=== PATIENT | male | born 1955 | race Caucasian/White ===

== ENCOUNTER 2016-08-26 16:05 | Observation (INO) | payer OTHER, MEDICARE ==
--- NOTE | 2016-08-26 16:24 | ER Document Report ---
ED Medical Screen (RME) - General Stated Complaint: CHEST PAIN Notes: onset: today, this AM around 9am. gradual onset and has gotten worse throughout the day. substernal chest pain described as "muscle pain, ache", radiating into left arm and shoulder. denies SOB PMH: preangina, previous stress test > 1 year ago I have greeted and performed a rapid initial assessment of this patient. A comprehensive ED assessment and evaluation of the patient, analysis of test results and completion of the medical decision making process will be conducted by additional ED providers. - Related Data Allergies/Adverse Reactions: Penicillins Allergy (Intermediate, Verified 09/10/13 05:42) Rash Past Medical History - Past Medical History Cardiac Medical History: Reports: Hx Hypertension Pulmonary Medical History: Reports: Hx Pneumonia Denies: Hx Tuberculosis Neurological Medical History: Reports: Hx Cerebrovascular Accident - Left-sided brainstem infarct to 08/20/2013 Endocrine Medical History: Reports: Hx Diabetes Mellitus Type 2 Psychiatric Medical History: Denies: Hx Depression Past Surgical History: Reports: Hx Cardiac Catheterization, Hx Orthopedic Surgery - carpel tunnel - Immunizations Hx Diphtheria, Pertussis, Tetanus Vaccination: No
[2016-08-26] MEDS ORDERED: ASPIRIN 81 MG TABLET, CHEWABLE PO ONE (16:25)
[2016-08-26 16:41] LABS: ABSOLUTE EOSINOPHILS # (AUTO) 0.1 10^3/uL (0.0-0.6); ABSOLUTE LYMPHOCYTES (AUTO) 2.1 10^3/uL (0.5-4.7); ABSOLUTE MONOCYTES (AUTO) 0.6 10^3/uL (0.1-1.4); ABSOLUTE NEUT (AUTO) 4.6 10^3/uL (1.7-8.2); BASOPHILS % (AUTO) 0.6 % (0-2); EOSINOPHILS % (AUTO) 1.8 % (0-6); HEMATOCRIT 40.5 % (37.9-51.0); HEMOGLOBIN 13.8 g/dL (13.5-17.0); HGB HCT DIFFERENCE 0.9; LYMPHOCYTES % (AUTO) 28.6 % (13-45); MEAN CORPUSCULAR HGB CONC 34.1 g/dL (32.0-36.0); MEAN CORPUSCULAR VOLUME 85 fl (80-97); MONOCYTES % (AUTO) 8.2 % (3-13); RED BLOOD COUNT 4.77 10^6/uL (4.35-5.55); RED CELL DISTRIBUTION WIDTH 13.9 % (11.5-14.0); SEGMENTED NEUTROPHILS % (AUTO) 60.8 % (42-78); WHITE BLOOD COUNT 7.5 10^3/uL (4.0-10.5)
[2016-08-26 16:53] LABS: ALANINE AMINOTRANSFERASE 37 U/L (21-72); ALBUMIN 4.1 g/dL (3.5-5.0); ALKALINE PHOSPHATASE 105 U/L (38-126); ANION GAP 12 (5-19); ASPARTATE AMINO TRANSFERASE 26 U/L (17-59); BILIRUBIN,TOTAL 0.7 mg/dL (0.2-1.3); BLOOD UREA NITROGEN 15 mg/dL (7-20); CALCIUM 9.9 mg/dL (8.4-10.2); CARBON DIOXIDE 26 mmol/L (22-30); CHLORIDE 103 mmol/L (98-107); CREATINE KINASE 135 U/L (55-170); GLUCOSE 114 mg/dL (75-110); POTASSIUM 4.8 mmol/L (3.6-5.0); SODIUM 141.2 mmol/L (137-145); TOTAL PROTEIN 7.4 g/dL (6.3-8.2)
[2016-08-26 17:05] LABS: CREATINE KINASE MB 1.77 ng/mL (<4.55)
[2016-08-26 17:07] LABS: TROPONIN I < 0.012 ng/mL
--- NOTE | 2016-08-26 17:11 | EKG REPORT ---
SEVERITY:- NORMAL ECG - SINUS RHYTHM : Confirmed by: Denis Pearson MD 26-Aug-2016 17:10:31
--- NOTE | 2016-08-26 17:34 | ER Document Report ---
ED General - General Chief Complaint: Chest Pain > 30 Stated Complaint: CHEST PAIN Time seen by provider: 17:28 Mode of Arrival: Ambulatory Information source: Patient Notes: 61-year-old male who complains about [place] 3 week history of upper chest and left shoulder pain radiating down his left arm which is produced with exertion and relieved with rest. 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 He was seen [facility] today for this and referred to emergency department out of concern that it might of been cardiac in nature. Patient reports he had a clean cardiac catheterization 1993 says he had a negative stress test in the [place] in 2007 but reports no more recent cardiac workup. He denies associated shortness breath, diaphoresis, nausea, vomiting, or numbness weakness to extremities. He reports receiving one full dose aspirin on arrival here says he does not have discomfort in his left shoulder now. Physical Exam: General: Alert, appears well. HEENT: Normocephalic. Atraumatic. PERRLA. Extraocular movements intact. Oropharynx clear. Neck: Supple. Non-tender. Respiratory: No respiratory distress. Clear and equal breath sounds bilaterally. Nontender to palpation Cardiovascular: Regular rate and rhythm. Abdominal: Normal Inspection. Soft, non-tender. No distension. Normal Bowel Sounds. Back: Non-tender. No deformity or step off. Extremities: Moves all four extremities. Upper extremities: Normal inspection. Non-tender. Normal color. Normal ROM. Normal temperature. Patient localizes his shoulder discomfort to the anterior portion of the humeral head but palpation of this area does not reproduce patient's pain. He is able to demonstrate good range of motion at the left shoulder without increasing his pain. Remainder of the left upper extremity is nontender with full range of motion Lower extremities: Normal inspection. Non-tender. No edema. Normal color. Normal ROM. Normal temperature. Neurological: Speech clear mentation normal Psychological: Normal affect. Normal Mood. Skin: Warm. Dry. Normal color. TRAVEL OUTSIDE OF THE [place] IN LAST 30 DAYS: No - Related Data Allergies/Adverse Reactions: Penicillins Allergy (Intermediate, Verified 09/10/13 05:42) Rash Past Medical History - Social History Smoking Status: Never Smoker Chew tobacco use (# tins/day): No Frequency of alcohol use: None Drug Abuse: None Family History: CAD Patient has suicidal ideation: No Patient has homicidal ideation: No - Past Medical History Cardiac Medical History: Reports: Hx Hypercholesterolemia, Hx Hypertension Pulmonary Medical History: Reports: Hx Pneumonia Denies: Hx Tuberculosis Neurological Medical History: Reports: Hx Cerebrovascular Accident - Left-sided brainstem infarct to 08/20/2013 Endocrine Medical History: Reports: Hx Diabetes Mellitus Type 2 Renal/ Medical History: Denies: Hx Peritoneal Dialysis Psychiatric Medical History: Denies: Hx Depression Past Surgical History: Reports: Hx Cardiac Catheterization, Hx Orthopedic Surgery - carpel tunnel - Immunizations Hx Diphtheria, Pertussis, Tetanus Vaccination: No Review of Systems - Review of Systems Constitutional: denies: Chills, Fever EENT: denies: Ear pain, Throat pain Cardiovascular: See HPI Respiratory: denies: Cough, Short of breath Gastrointestinal: denies: Abdominal pain, Nausea, Vomiting Genitourinary: denies: Burning, Dysuria Musculoskeletal: denies: Back pain Skin: denies: Rash Hematologic/Lymphatic: denies: Swollen glands Neurological/Psychological: denies: Numbness Physical Exam - Vital signs Vitals: Temp Pulse Resp BP Pulse Ox 98.2 F 79 16 131/86 H 98 08/26/16 16:23 08/26/16 16:23 08/26/16 16:23 08/26/16 16:23 08/26/16 16:23 Course - Re-evaluation Re-evalutation: 08/26/16 17:33 Patient's description of his symptoms certainly seems musculoskeletal in nature but I am not able to reproduce that with range of motion testing and he has multiple cardiac risk factors with a heart score of 4. I believe attributing his discomfort given musculoskeletal etiology would be more prudent after he said further cardiac evaluation as we have certainly seen cases of reproducible type chest discomfort rule in. I discussed case with hospitalist service and they will be coming to see the patient - Vital Signs Vital signs: Temp Pulse Resp BP Pulse Ox 98.2 F 79 16 131/86 H 98 08/26/16 16:23 08/26/16 16:23 08/26/16 16:23 08/26/16 16:23 08/26/16 17:00 - Laboratory Result Diagrams: 08/26/16 16:30 08/26/16 16:30 Laboratory results interpreted by me: 08/26/16 16:30 Glucose 114 H - Diagnostic Test Radiology reviewed: Image reviewed, Reports reviewed - EKG Interpretation by Me Additional EKG results interpreted by me: 08/26/16 17:32 EKG reviewed by myself shows sinus rhythm at 72 with no acute changes Discharge - Discharge Clinical Impression: Chest pain Qualifiers: Chest pain type: unspecified Qualified Code(s): R07.9 - Chest pain, unspecified Condition: Fair Disposition: ADMITTED OBSERVATION Admitting Provider: Hospitalist Unit Admitted: Telemetry
--- NOTE | 2016-08-26 18:31 | PDOC H&P ---
History of Present Illness Admission Date/PCP: 08/26/16 Patient complains of: Chest pain History of Present Illness: SARAH MARIN is a 61 year old male, with hypertension and diabetes, presents to the hospital, with 2 week history of left-sided chest pain that is worse with movement of the left shoulder. 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 He noticed that the discomfort is persistent and worse every time he moves his chest and shoulder mainly on the left. There is no radiation to the left upper extremity but there is radiation from the left shoulder to the anterior chest wall. No shortness of breath, diaphoresis, nausea or vomiting, palpitation, dizziness, or lightheadedness. [facility] and has recommended for him to go to the emergency room for further evaluation and therefore was referred for admission. Past Medical History Past Medical History: Medication reconciliation pending verification from the patient's pharmacist Cardiac Medical History: Reports: Hyperlipidema, Hypertension Pulmonary Medical History: Reports: Pneumonia Denies: Tuberculosis Neurological Medical History: Reports: Ischemic CVA - Residual right-sided weakness Endocrine Medical History: Reports: Diabetes Mellitus Type 2, Hypothyroidism Psychiatric Medical History: Denies: Depression Past Surgical History Past Surgical History: Reports: Cardiac Catheterization, Orthopedic Surgery - carpel tunnel release Social History Information Source: Patient Smoking Status: Never Smoker Frequency of Alcohol Use: Rare Hx Recreational Drug Use: No Drugs: None Hx Prescription Drug Abuse: No Family History Family History: CAD Parental Family History Reviewed: Yes Children Family History Reviewed: Yes Sibling(s) Family History Reviewed.: Yes Medication/Allergy Allergies/Adverse Reactions: Penicillins Allergy (Intermediate, Verified 09/10/13 05:42) Rash Review of Systems Constitutional: ABSENT: chills, fever(s), headache(s), night sweats, weight gain , weight loss Eyes: ABSENT: visual disturbances Ears: ABSENT: hearing changes Nose, Mouth, and Throat: ABSENT: mouth pain, sore throat, vertigo Cardiovascular: PRESENT: chest pain. ABSENT: dyspnea on exertion, edema, orthropnea, palpitations Respiratory: ABSENT: cough, dyspnea, hemoptysis Gastrointestinal: ABSENT: abdominal pain, constipation, diarrhea, hematemesis, hematochezia, nausea, vomiting Genitourinary: ABSENT: dysuria, hematuria Musculoskeletal: ABSENT: joint swelling Integumentary: ABSENT: pruritus, rash, wounds Neurological: ABSENT: abnormal gait, abnormal speech, confusion, dizziness, focal weakness, syncope Psychiatric: ABSENT: anxiety, depression, homidical ideation, suicidal ideation Endocrine: ABSENT: cold intolerance, heat intolerance, polydipsia, polyuria Hematologic/Lymphatic: ABSENT: easy bleeding, easy bruising Physical Exam Vital Signs: Temp Pulse Resp BP Pulse Ox 98.2 F 79 16 131/86 H 98 08/26/16 16:23 08/26/16 16:23 08/26/16 16:23 08/26/16 16:23 08/26/16 17:00 Intake & Output 08/25/16 08/26/16 08/27/16 06:59 06:59 06:59 Weight 127.7 kg General appearance: PRESENT: no acute distress, cooperative, obese Head exam: PRESENT: atraumatic, normocephalic Eye exam: PRESENT: conjunctiva pink, EOMI, PERRLA. ABSENT: scleral icterus Ear exam: PRESENT: normal external ear exam. ABSENT: drainage Mouth exam: PRESENT: moist, neck supple, tongue midline Throat exam: ABSENT: post pharyngeal erythema, tonsillar erythema, tonsillar exudate Neck exam: ABSENT: carotid bruit, JVD, lymphadenopathy, thyromegaly Respiratory exam: PRESENT: clear to auscultation garth, unlabored. ABSENT: rales , rhonchi, wheezes Cardiovascular exam: PRESENT: RRR, +S1, +S2. ABSENT: diastolic murmur, gallop, rubs, systolic murmur Pulses: PRESENT: normal dorsalis pedis pul Vascular exam: PRESENT: normal capillary refill GI/Abdominal exam: PRESENT: distended - obese, normal bowel sounds, soft. ABSENT: guarding, mass, organolmegaly, rebound, tenderness Rectal exam: PRESENT: deferred Extremities exam: PRESENT: full ROM, other - Trace pretibial edema. ABSENT: calf tenderness, clubbing Musculoskeletal exam: ABSENT: tenderness - reproducible on chest wall Neurological exam: PRESENT: alert, awake, oriented to person, oriented to place , oriented to time, oriented to situation Psychiatric exam: PRESENT: appropriate affect, normal mood. ABSENT: homicidal ideation, suicidal ideation Skin exam: PRESENT: dry, intact, warm. ABSENT: cyanosis, rash Results Laboratory Results: 08/26/16 16:30 08/26/16 16:30 08/26/16 08/26/16 16:30 16:30 WBC 7.5 RBC 4.77 Hgb 13.8 Hct 40.5 MCV 85 MCH 29.0 MCHC 34.1 RDW 13.9 Plt Count 243 Seg Neutrophils % 60.8 Lymphocytes % 28.6 Monocytes % 8.2 Eosinophils % 1.8 Basophils % 0.6 Absolute Neutrophils 4.6 Absolute Lymphocytes 2.1 Absolute Monocytes 0.6 Absolute Eosinophils 0.1 Absolute Basophils 0.0 Sodium 141.2 Potassium 4.8 Chloride 103 Carbon Dioxide 26 Anion Gap 12 BUN 15 Creatinine 1.10 Est GFR ( Amer) > 60 Est GFR (Non-Af Amer) > 60 Glucose 114 H Calcium 9.9 Total Bilirubin 0.7 AST 26 ALT 37 Alkaline Phosphatase 105 Total Protein 7.4 Albumin 4.1 08/26/16 08/26/16 16:30 16:30 Creatine Kinase 135 CK-MB (CK-2) 1.77 Troponin I < 0.012 Impressions: Chest X-Ray 08/26/16 16:25 IMPRESSION: NO ACUTE RADIOGRAPHIC FINDING IN THE CHEST. 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 Qualified Code(s): E11.40 - Type 2 diabetes mellitus with diabetic neuropathy, unspecified Is this a current diagnosis for this admission?: Yes (4) Hyperlipidemia Qualifiers: Hyperlipidemia type: unspecified Qualified Code(s): E78.5 - Hyperlipidemia, unspecified Is this a current diagnosis for this admission?: Yes (5) Hypothyroidism (acquired) Is this a current diagnosis for this admission?: Yes (6) Morbid obesity Qualifiers: Obesity type: unspecified obesity type Qualified Code(s): E66.01 - Morbid (severe) obesity due to excess calories Is this a current diagnosis for this admission?: Yes (7) History of stroke Is this a current diagnosis for this admission?: Yes - Time Time Spent: 30 to 50 Minutes Anticipated discharge: Home Within: within 24 hours - Plan Summary Plan Summary: The patient will be admitted to observation. We will start the patient on aspirin. I will use a nonsteroidal anti-inflammatory medication as well as see if it will help. In the meantime we will obtain cardiac enzymes 3 and if negative we will proceed with a stress test. I am going to put the patient on supplemental oxygen. DVT prophylaxis with Lovenox will be placed. I will put the patient on sliding scale insulin and diabetic diet. Further testing depends on initial evaluation as outlined above.
[2016-08-26] MEDS ORDERED: DEXTROSE 40% GEL 15 GM TUBE PO PRN ×2 (18:37)
[2016-08-26] MEDS ORDERED: DEXTROSE 50%-WATER 25 GM/50 ML DISP.SYRIN IV PRN ×2 (18:37)
[2016-08-26] MEDS ORDERED: INSULIN REG, HUMAN 100 UNIT/ML 3 ML VIAL (PYX) SUBCUT PRN (18:37)
[2016-08-26] MEDS ORDERED: GLUCAGON,HUMAN RECOMB 1 MG INJ IM PRN (18:37)
[2016-08-26] MEDS ORDERED: ONDANSETRON HCL INJ/PF 4 MG/2 ML SDV IV PRN (18:41)
[2016-08-26] MEDS ORDERED: ENOXAPARIN SODIUM INJ 40 MG/0.4 ML DISP.SYRIN SUBCUT ONE (20:00)
[2016-08-26] MEDS: CLONIDINE HCL 0.1 MG TABLET PO SCH (21:16)
[2016-08-26] MEDS: GABAPENTIN 300 MG CAPSULE PO SCH (21:16)
[2016-08-26] MEDS: ACETAMINOPHEN 325 MG TABLET PO PRN (22:00)
[2016-08-27] MEDS: ACETAMINOPHEN 325 MG TABLET PO PRN (05:08)
[2016-08-27] MEDS: GABAPENTIN 300 MG CAPSULE PO SCH ×2 (05:08→14:13)
[2016-08-27] MEDS ORDERED: LANSOPRAZOLE 30 MG TAB.RAP.DR PO SCH (06:00)
[2016-08-27] MEDS ORDERED: ENOXAPARIN SODIUM INJ 40 MG/0.4 ML DISP.SYRIN SUBCUT SCH (08:00)
[2016-08-27] MEDS ORDERED: OXYCODONE-ACETAMINOPHEN 5-325 MG TABLET PO PRN (08:51)
[2016-08-27] MEDS ORDERED: LEVOTHYROXINE SODIUM 0.112 MG TABLET PO SCH (10:00)
[2016-08-27] MEDS ORDERED: LISINOPRIL 10 MG TABLET PO SCH (10:00)
[2016-08-27] MEDS ORDERED: HYDROCHLOROTHIAZIDE 25 MG TABLET PO SCH (10:00)
[2016-08-27] MEDS ORDERED: ASPIRIN 325 MG TABLET PO SCH (10:00)
[2016-08-27] MEDS: METFORMIN HCL 500 MG TABLET PO SCH ×2 (11:40→18:27)
[2016-08-27] MEDS: DOCUSATE SODIUM 100 MG CAPSULE PO SCH ×2 (11:41→18:27)
[2016-08-27] MEDS: CLONIDINE HCL 0.1 MG TABLET PO SCH (11:41)
--- NOTE | 2016-08-27 13:18 | DRAGON STRESS TEST REPORT ---
INTRAVENOUS LEXISCAN CARDIOLITE STRESS TEST USING SINGLE PHOTON EMMISION COMPUTERIZED TOMOGRAPHIC. DATE OF PROCEDURE: August 27, 2016 INDICATION : Chest pain CARDIAC RISK FACTORS: Diabetes, hypertension RESTING EKG: Sinus rhythm without any baseline ST-T wave changes STRESS EKG: No significant changes noted with LexiScan bolus REASON FOR TERMINATION: Protocol. PROCEDURE REPORT: Baseline heart rate 66 beats per minute with blood pressure of 122/70. Patient had no significant complaints. Heart rate at 2 minutes post bolus 72 with a blood pressure of 120/70. 3 minutes post bolus heart rate 72 with blood pressure of 128/66. No significant EKG changes were noted. Patient had no significant complaints during the procedure or postprocedure. CONCLUSIONS: Normal EKG and hemodynamic response to IV LexiScan. NUCLEAR DATA: At rest the patient was given 15.35 millicuries of technetium 99 sestamibi injected intravenously. As per protocol rest gated SPECT images were obtained. Subsequently the patient was given intravenous LexiScan at a dose of 0.4 mg in 5 mL intravenously, followed by flush with normal saline. Subsequently the stress dose of 45.7 millicuries of technetium 99 sestamibi was injected intravenously. As per protocol stress gated images were obtained. NUCLEAR INTERPRETATION: Both raw and processed data were used for interpretation. Visual, qualitative, computer-generated quantitative data was used. There was good myocardial uptake of technetium compound. Motion artifact and soft tissue attenuations were noted. Increased visceral uptake was noted. No definitive areas of transient perfusion defect noted. No definitive areas of fixed perfusion defect or scars noted, except borderline decreased uptake in the basal and mid inferior wall most likely related to diaphragmatic attenuation artifact but cannot rule out an area of mild scar. EKG gated imaging showed LV EF at 49 %, rest and stress gated EF similar visually. T. I D. ratio was 1.19. This is borderline abnormal. Lung heart ratio noted to be within normal limits 0.31. No significant extracardiac and abnormal radiotracer activities were noted. RV free wall uptake was noted to be borderline Increased. IMPRESSION: Also refer to comments under nuclear interpretation. Also test results needs to be interpreted in the context of pretest probability. 1. There is no definitive scintigraphic evidence of LexiScan induced myocardial ischemia. 2. There is no definitive scintigraphic evidence of myocardial infarction/scar , except borderline decreased uptake in the basal and mid inferior wall most likely related to diaphragmatic attenuation artifact but cannot rule out an area of mild scar. 3. EKG gated imaging shows left ejection fraction of approximately 49 %. T. I D. ratio was 1.19. This is borderline abnormal. 4. Clinical correlation requested as occasionally single vessel disease or balanced ischemia could be missed. In approximately 10% of the cases Lexiscan may not cause adequate vasodilatory stress. RECOMMENDATIONS: Aggressive risk factor modification, medical therapy. Close cardiology follow- up. Clinical correlation with echocardiogram derived ejection fraction. Inability to exercise by itself can lead to increased cardiovascular event risks. Consider cardiology consultation if clinically indicated. I AM AVAILABLE FOR CARDIOLOGY CONSULTATION AND FOLLOWUP IF REQUESTED BY PMD Bernard Mathur M.D., [employer] Specialist bankruptcy attorney, Board certified in cardiovascular diseases, Nuclear cardiology, Echocardiography Cardiac CT and cardiac MRI Ph. [phone] [facility]
[2016-08-27] MEDS ORDERED: REGADENOSON INJ 0.4 MG/5 ML DISP.SYRIN IV ONE (13:28)
--- NOTE | 2016-08-27 16:22 | PDOC DISCHARGE SUMMARY ---
General - Admit/Disc Date/PCP Admission Date/Primary Care Provider: 08/26/16 18:41 Discharge Date: 08/27/16 - Discharge Diagnosis (1) Chest pain Is this a current diagnosis for this admission?: Yes (2) Hypertension Is this a current diagnosis for this admission?: Yes (3) Type 2 diabetes mellitus with diabetic neuropathy Is this a current diagnosis for this admission?: Yes (4) Hyperlipidemia Is this a current diagnosis for this admission?: Yes (5) Hypothyroidism (acquired) Is this a current diagnosis for this admission?: Yes (6) Morbid obesity Is this a current diagnosis for this admission?: Yes (7) History of stroke Is this a current diagnosis for this admission?: Yes - Additional Information Resuscitation Status: Full Code Discharge Diet: Cardiac - low-fat low-salt, Diabetic - no concentrated sweets Discharge Activity: Activity As Tolerated, Balance Activity w/Rest Home Medications: Aspirin [Aspirin 325 mg Tablet] 325 mg PO DAILY 08/26/16 Clonidine HCl [Catapres 0.1 mg Tablet] 0.1 mg PO Q12 08/26/16 Gabapentin [Neurontin] 1,200 mg PO QHS PRN 08/26/16 Gabapentin [Neurontin] 600 mg PO BID 08/26/16 Glipizide [Glucotrol 10 mg Tablet] 10 mg PO BID 08/26/16 Insulin Glargine,Hum.rec.anlog [Lantus Insulin 100 Unit/mL] 50 unit SUBCUT QHS 08/26/16 Levothyroxine Sodium [Synthroid 0.15 mg Tablet] 0.15 mg PO DAILY 08/26/16 Lisinopril [Prinivil 40 mg Tablet] 40 mg PO DAILY 08/26/16 Metformin HCl [Glucophage] 1,000 mg PO BID 08/26/16 Milk Thistle 1,000 mg PO DAILY 08/26/16 Tramadol HCl [Ultram] 50 mg PO Q6H PRN #40 tablet 08/27/16 History of Present Illness Patient complains of: Chest pain History of Present Illness: SARAH MARIN is a 61 year old male, with hypertension and diabetes, presents to the hospital, with 2 week history of left-sided chest pain that is worse with movement of the left shoulder. 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 He noticed that the discomfort is persistent and worse every time he moves his chest and shoulder mainly on the left. There is no radiation to the left upper extremity but there is radiation from the left shoulder to the anterior chest wall. No shortness of breath, diaphoresis, nausea or vomiting, palpitation, dizziness, or lightheadedness. Patient went to see his physician in the [place] and has recommended for him to go to the emergency room for further evaluation and therefore was referred for admission. Hospital Course Hospital Course: The patient was admitted to telemetry. Patient was continued on his aspirin. Supplemental oxygen was likewise given. Serial cardiac enzymes were obtained and they were negative for myocardial infarction. D-dimer was normal. Eventually, a stress test was performed showing no reversible ischemia. Cardiology however recommended cardiology follow-up due to patient's overall risk. Patient was therefore advised to seek consultation and follow-up but he prefers to have it done at the [facility]. The rest of the hospital stay is unremarkable. Patient's chest pain improved. He was eventually discharged home with above instructions. Physical Exam Vital Signs: Temp Pulse Resp BP Pulse Ox 98.3 F 67 16 131/71 H 99 08/27/16 05:11 08/27/16 14:00 08/27/16 05:11 08/27/16 05:11 08/27/16 05:11 Intake & Output 08/26/16 08/27/16 08/28/16 06:59 06:59 06:59 Intake Total 400 Output Total 750 Balance -350 Weight 124.9 kg General appearance: PRESENT: no acute distress, cooperative, obese Head exam: PRESENT: normocephalic Eye exam: PRESENT: EOMI Mouth exam: PRESENT: moist, neck supple Neck exam: ABSENT: JVD Respiratory exam: PRESENT: clear to auscultation garth. ABSENT: rhonchi, wheezes Cardiovascular exam: PRESENT: RRR. ABSENT: gallop GI/Abdominal exam: PRESENT: normal bowel sounds, soft. ABSENT: distended, tenderness Extremities exam: ABSENT: pedal edema Neurological exam: PRESENT: alert, awake, oriented to person, oriented to place , oriented to time, oriented to situation Skin exam: PRESENT: dry, warm. ABSENT: cyanosis Results Laboratory Results: 08/26/16 08/26/16 08/27/16 20:02 20:02 00:20 Creatine Kinase 110 95 Troponin I < 0.012 08/27/16 00:20 Creatine Kinase Troponin I < 0.012 Impressions: Chest X-Ray 08/26/16 16:25 IMPRESSION: NO ACUTE RADIOGRAPHIC FINDING IN THE CHEST. Qualifiers PATEINT BEING DISCHARGED WITH ANY OF THE FOLLOWING DIAGNOSIS?: No Plan Discharge Plan: Follow-up with primary care physician in one week. Follow-up with beveling and edging machine [facility] in 1-2 weeks. Time Spent: Less than 30 Minutes
[2016-08-27 18:04] VITALS: BP 141/84
== END 2016-08-27 18:45 | disposition home or self-care (01) ==
LOC: ER 16:05 → EH 18:41 → 4N 21:35
DX: R07.9 Chest pain, unspecified (principal); I10 Essential (primary) hypertension; E11.40 Type 2 diabetes mellitus with diabetic neuropathy, unspecified; I69.351 Hemiplegia and hemiparesis following cerebral infarction affecting right dominant side; E03.9 Hypothyroidism, unspecified; E66.01 Morbid (severe) obesity due to excess calories; Z79.82 Long term (current) use of aspirin; Z79.4 Long term (current) use of insulin; Z79.899 Other long term (current) drug therapy; Z88.0 Allergy status to penicillin
CPT/HCPCS: 93005; 99285; 96372; 36415 ×2; 82553; 82962 ×2; 82550 ×2; 85025; 80053; 84484 ×2; 85379; 93017; 71010; 78452; 93010; G0378 ×3; A9500; J2785; J1650 ×2; J1815; J3490 ×2; Q9969

== ENCOUNTER 2018-07-03 14:20 | Inpatient (IN) | payer OTHER, MEDICARE ==
--- NOTE | 2018-07-03 17:09 | ER Document Report ---
ED Medical Screen (RME) - General Chief Complaint: Skin Sore(s) Stated Complaint: SKIN PROBLEM Time Seen by Provider: 07/03/18 16:47 Mode of Arrival: Ambulatory Information source: Patient Notes: Patient is a 63-year-old male who presents to the emergency department today with complaint of skin sores to his bilateral arms that is been present since April as well as cough, nasal congestion and fever that started 2 days ago. Patient reports remote history of pneumonia. Exam: Lung sounds clear to auscultation bilaterally. Multiple quarter size skin sores noted to patient's bilateral arms. I have greeted and performed a rapid initial assessment of this patient. A comprehensive ED assessment and evaluation of the patient, analysis of test results and completion of the medical decision making process will be conducted by additional ED providers. Dictation of this chart was performed using voice recognition software; therefore, there may be some unintended grammatical errors. TRAVEL OUTSIDE OF THE [place] IN LAST 30 DAYS: No - Related Data Allergies/Adverse Reactions: Penicillins Allergy (Intermediate, Verified 07/03/18 14:22) Rash Past Medical History - Past Medical History Cardiac Medical History: Reports: Hx Hypercholesterolemia, Hx Hypertension Denies: Hx Congestive Heart Failure, Hx Heart Attack Pulmonary Medical History: Reports: Hx Pneumonia Denies: Hx Asthma, Hx Bronchitis, Hx COPD, Hx Tuberculosis Neurological Medical History: Reports: Hx Cerebrovascular Accident - Left-sided brainstem infarct to 08/20/2013. Denies: Hx Seizures Endocrine Medical History: Reports: Hx Diabetes Mellitus Type 2, Hx Hypothyroidism Renal/ Medical History: Reports: Hx Kidney Stones. Denies: Hx Benign Prostatic Hyperplasia, Hx End Stage Renal Disease, Hx Peritoneal Dialysis GI Medical History: Denies: Hx Cirrhosis, Hx Gastroesophageal Reflux Disease, Hx Ulcer Musculoskeltal Medical History: Denies Hx Arthritis, Denies Hx Multiple Sclerosis Psychiatric Medical History: Denies: Hx Bipolar Disorder, Hx Depression, Hx Schizophrenia Past Surgical History: Reports: Hx Cardiac Catheterization, Hx Orthopedic Surgery - carpel tunnel release - Immunizations Hx Diphtheria, Pertussis, Tetanus Vaccination: No Physical Exam - Vital signs Vitals: Temp Pulse Resp BP Pulse Ox 100.9 F H 95 18 130/76 H 97 07/03/18 14:26 07/03/18 14:26 07/03/18 14:26 07/03/18 14:26 07/03/18 14:26 Course - Vital Signs Vital signs: Temp Pulse Resp BP Pulse Ox 100.9 F H 95 18 130/76 H 97 07/03/18 14:26 07/03/18 14:26 07/03/18 14:26 07/03/18 14:26 07/03/18 14:26
--- NOTE | 2018-07-03 17:24 | RADIOLOGY REPORT (SQ) ---
EXAM DESCRIPTION: CHEST 2 VIEWS COMPLETED DATE/TIME: 07/03/2018 5:13 pm REASON FOR STUDY: cough with fever COMPARISON: None. EXAM PARAMETERS: NUMBER OF VIEWS: two views TECHNIQUE: Digital Frontal and Lateral radiographic views of the chest acquired. RADIATION DOSE: NA LIMITATIONS: none FINDINGS: LUNGS AND PLEURA: No opacities, masses or pneumothorax. No pleural effusion. MEDIASTINUM AND HILAR STRUCTURES: No masses or contour abnormalities. HEART AND VASCULAR STRUCTURES: Heart normal size. No evidence for failure. BONES: No acute findings. HARDWARE: None in the chest. OTHER: No other significant finding. IMPRESSION: NO ACUTE RADIOGRAPHIC FINDING IN THE CHEST. TECHNICAL DOCUMENTATION: JOB ID: [id number] [employer]- All Rights Reserved Reading location - IP/workstation name: [email or web address]
[2018-07-03 18:06] LABS: ABSOLUTE LYMPHOCYTES (AUTO) 1.2 10^3/uL (0.5-4.7); ABSOLUTE MONOCYTES (AUTO) 0.7 10^3/uL (0.1-1.4); ABSOLUTE NEUT (AUTO) 11.5 10^3/uL (1.7-8.2); BASOPHILS % (AUTO) 0.1 % (0-2); EOSINOPHILS % (AUTO) 0.1 % (0-6); HEMOGLOBIN 13.6 g/dL (13.5-17.0); LYMPHOCYTES % (AUTO) 9.1 % (13-45); MEAN CORPUSCULAR HEMOGLOBIN 28.7 pg (27.0-33.4); MEAN CORPUSCULAR VOLUME 84 fl (80-97); MONOCYTES % (AUTO) 4.9 % (3-13); PLATELET COUNT 231 10^3/uL (150-450); RED BLOOD COUNT 4.75 10^6/uL (4.35-5.55); RED CELL DISTRIBUTION WIDTH 13.9 % (11.5-14.0); SEGMENTED NEUTROPHILS % (AUTO) 85.8 % (42-78); TOTAL CELLS COUNTED % (AUTO) 100 %; WHITE BLOOD COUNT 13.4 10^3/uL (4.0-10.5)
[2018-07-03 18:20] LABS: ALANINE AMINOTRANSFERASE 21 U/L (21-72); ALBUMIN 3.6 g/dL (3.5-5.0); ALKALINE PHOSPHATASE 117 U/L (38-126); ANION GAP 12 (5-19); ASPARTATE AMINO TRANSFERASE 19 U/L (17-59); BILIRUBIN,DIRECT 0.4 mg/dL (0.0-0.4); BILIRUBIN,TOTAL 0.7 mg/dL (0.2-1.3); BLOOD UREA NITROGEN 10 mg/dL (7-20); CALCIUM 9.3 mg/dL (8.4-10.2); CARBON DIOXIDE 27 mmol/L (22-30); CHLORIDE 96 mmol/L (98-107); GLUCOSE 270 mg/dL (75-110); POTASSIUM 3.9 mmol/L (3.6-5.0); SODIUM 134.5 mmol/L (137-145); TOTAL PROTEIN 6.9 g/dL (6.3-8.2)
--- NOTE | 2018-07-03 20:39 | ER Document Report ---
ED General - General Chief Complaint: Skin Sore(s) Stated Complaint: SKIN PROBLEM Time Seen by Provider: 07/03/18 16:47 Mode of Arrival: Ambulatory Notes: 63-year-old male to the emergency department for evaluation of not feeling well. Sent over here from the [place] to be evaluated for possible skin infections. Patient states that he has been having some fevers and generally not feeling well for the last several days. Has multiple sores on his arms. Also noticed some redness going up his left leg. Has not checked the bottom of his feet. Denies any other symptoms at this time. TRAVEL OUTSIDE OF THE [place] IN LAST 30 DAYS: No - HPI Onset/Duration: Gradual, Constant Quality of pain: No pain Severity: Mild Pain Level: 0 Associated symptoms: Chills, Fever Exacerbated by: Denies Relieved by: Denies - Related Data Allergies/Adverse Reactions: Penicillins Allergy (Intermediate, Verified 07/03/18 14:22) Rash Past Medical History - General Information source: Patient - Social History Smoking Status: Never Smoker Frequency of alcohol use: None Drug Abuse: None Lives with: Spouse/Significant other Family History: CAD Patient has suicidal ideation: No Patient has homicidal ideation: No - Past Medical History Cardiac Medical History: Reports: Hx Hypercholesterolemia, Hx Hypertension Denies: Hx Congestive Heart Failure, Hx Heart Attack Pulmonary Medical History: Reports: Hx Pneumonia Denies: Hx Asthma, Hx Bronchitis, Hx COPD, Hx Tuberculosis Neurological Medical History: Reports: Hx Cerebrovascular Accident - Left-sided brainstem infarct to 08/20/2013. Denies: Hx Seizures Endocrine Medical History: Reports: Hx Diabetes Mellitus Type 2, Hx Hypothyroidism Renal/ Medical History: Reports: Hx Kidney Stones. Denies: Hx Benign Prostatic Hyperplasia, Hx End Stage Renal Disease, Hx Peritoneal Dialysis GI Medical History: Denies: Hx Cirrhosis, Hx Gastroesophageal Reflux Disease, Hx Ulcer Musculoskeletal Medical History: Denies Hx Arthritis, Denies Hx Multiple Sclerosis Psychiatric Medical History: Denies: Hx Bipolar Disorder, Hx Depression, Hx Schizophrenia Past Surgical History: Reports: Hx Cardiac Catheterization, Hx Orthopedic Surgery - carpel tunnel release - Immunizations Hx Diphtheria, Pertussis, Tetanus Vaccination: No Review of Systems - Review of Systems Notes: Constitutional: denies: Chills, Diaphoresis,. Complaining of fever EENT: denies: Eye discharge, Blurred vision, Tearing, Double vision, Nose congestion, Nose discharge, Throat swelling, Mouth pain Cardiovascular: denies: Palpitations, Heart racing, Orthopnea, Dyspnea, Chest pain Respiratory: denies: Cough, Hurts to breathe, Wheezing, Shortness of breath Gastrointestinal: denies: Abdominal pain, Diarrhea, Nausea, Vomiting, Black stools, bright red blood in stool Genitourinary: denies: Burning, Dysuria, Discharge, Frequency, Flank pain, Hematuria Musculoskeletal: denies: Joint pain, Joint swelling, Muscle pain, Muscle stiffness, back pain Hematologic/Lymphatic: denies: Anemia, Easy bleeding, Easy bruising, Blood clots Neurological/Psychological: denies: Confusion, Dementia, Depression, Loss of consciousness Skin: No lesions, no masses, no skin breakdown,. Patient has complaints of redness of his left lower extremity and multiple skin lesions on his arms that are oozing. Physical Exam - Vital signs Vitals: Temp Pulse Resp BP Pulse Ox 100.9 F H 95 18 130/76 H 97 07/03/18 14:26 07/03/18 14:26 07/03/18 14:26 07/03/18 14:26 07/03/18 14:26 Interpretation: Normal - General General appearance: Appears well, Alert - HEENT Head: Normocephalic, Atraumatic Eyes: Normal Pupils: PERRL - Respiratory Respiratory status: No respiratory distress Chest status: Nontender Breath sounds: Normal Chest palpation: Normal - Cardiovascular Rhythm: Regular Heart sounds: Normal auscultation Murmur: No - Abdominal Inspection: Normal Distension: No distension Bowel sounds: Normal Tenderness: Nontender Organomegaly: No organomegaly - Back Back: Normal, Nontender - Extremities General upper extremity: Normal inspection, Nontender, Normal color, Normal ROM , Normal temperature General lower extremity: Normal inspection, Nontender, Edema - There is edema noted to the left lower extremity. There is redness and streaking noted to the left foot and distal tib-fib area., Normal color, Normal ROM, Normal temperature , Normal weight bearing, Other - There is an ulcer noted on the bottom of the left foot at the ball of the foot around the second and third digit.. No: Berna 's sign - Neurological Neuro grossly intact: Yes Cognition: Normal Orientation: AAOx4 [place] Coma Scale Eye Opening: Spontaneous [place] Coma Scale Verbal: Oriented [place] Coma Scale Motor: Obeys Commands [place] Coma Scale Total: 15 Speech: Normal Motor strength normal: LUE, RUE, LLE, RLE Sensory: Normal - Psychological Associated symptoms: Normal affect, Normal mood - Skin Skin Temperature: Warm Skin Moisture: Dry Skin Color: Other - There is a 1 cm round ulcer on the bottom of the left foot at the ball of the foot. There are multiple oozing skin lesions on the arms bilaterally. There is significant amount of redness and erythema with some lymphangitic streaking going up the left foot and distal tib-fib area. Course - Re-evaluation Re-evalutation: 07/03/18 21:27 Laboratory 07/03/18 07/03/18 17:45 17:45 WBC 13.4 H RBC 4.75 Hgb 13.6 Hct 40.0 MCV 84 MCH 28.7 MCHC 34.0 RDW 13.9 Plt Count 231 Seg Neutrophils % 85.8 H Lymphocytes % 9.1 L Monocytes % 4.9 Eosinophils % 0.1 Basophils % 0.1 Absolute Neutrophils 11.5 H Absolute Lymphocytes 1.2 Absolute Monocytes 0.7 Absolute Eosinophils 0.0 Absolute Basophils 0.0 Sodium 134.5 L Potassium 3.9 Chloride 96 L Carbon Dioxide 27 Anion Gap 12 BUN 10 Creatinine 0.94 Est GFR ( Amer) > 60 Est GFR (Non-Af Amer) > 60 Glucose 270 H Calcium 9.3 Total Bilirubin 0.7 Direct Bilirubin 0.4 Neonat Total Bilirubin Not Reportable Neonat Direct Bilirubin Not Reportable Neonat Indirect Bili Not Reportable AST 19 ALT 21 Alkaline Phosphatase 117 Total Protein 6.9 Albumin 3.6 07/03/18 21:28 Chest X-Ray 07/03/18 16:56 IMPRESSION: NO ACUTE RADIOGRAPHIC FINDING IN THE CHEST. Foot X-Ray 07/03/18 20:38 IMPRESSION: No erosive findings to suggest active osteomyelitis. Subacute fracture and periosteal reaction of the metatarsal bones as described. 07/04/18 00:03 Patient with diabetic foot ulcer on the bottom of the left foot with incidental subacute fracture of the fifth metatarsal. There is elevated WBC count and fever. Patient will need to be admitted at this time for further treatment. Starting on vancomycin at this time. - Vital Signs Vital signs: Temp Pulse Resp BP Pulse Ox 100.9 F H 95 18 130/76 H 97 07/03/18 14:26 07/03/18 14:26 07/03/18 14:26 07/03/18 14:26 07/03/18 14:26 - Laboratory Result Diagrams: 07/03/18 17:45 07/03/18 17:45 Laboratory results interpreted by me: 07/03/18 07/03/18 07/03/18 17:45 17:45 17:45 WBC 13.4 H Seg Neutrophils % 85.8 H Lymphocytes % 9.1 L Absolute Neutrophils 11.5 H ESR 63 H Sodium 134.5 L Chloride 96 L Glucose 270 H C-Reactive Protein 07/03/18 17:45 WBC Seg Neutrophils % Lymphocytes % Absolute Neutrophils ESR Sodium Chloride Glucose C-Reactive Protein 208.7 H Discharge - Discharge Clinical Impression: Fracture of 5th metatarsal Qualifiers: Encounter type: initial encounter Fracture type: closed Fracture alignment: displaced Laterality: left Qualified Code(s): S92.352A - Displaced fracture of fifth metatarsal bone, left foot, initial encounter for closed fracture Diabetic foot ulcer Qualifiers: Diabetic foot ulcer location: midfoot Diabetes mellitus type: type 2 Laterality : left Non-pressure ulcer stage: limited to breakdown of skin Qualified Code(s) : E11.621 - Type 2 diabetes mellitus with foot ulcer Condition: Good Disposition: ADMITTED INPATIENT Admitting Provider: [facility] Unit Admitted: Medical Floor
[2018-07-03] MEDS ORDERED: VANCOMYCIN HCL INJ 1000 MG VIAL IV ONE ×2 (20:41→22:22)
--- NOTE | 2018-07-03 21:19 | RADIOLOGY REPORT (SQ) ---
EXAM DESCRIPTION: XR FOOT 3 OR MORE VIEWS COMPLETED DATE/TME: 07/03/2018 20:38 CLINICAL HISTORY: 63 years, Male, foot ulcer Findings: There is a mildly angulated subacute fracture of the proximal fifth metatarsal. Mild periosteal reaction of the second, third and fourth metatarsals as well. No dislocation. No erosive changes. IMPRESSION: No erosive findings to suggest active osteomyelitis. Subacute fracture and periosteal reaction of the metatarsal bones as described.
[2018-07-03] MEDS ORDERED: MAG HYDROX/AL HYDROX/SIMETH SUSP 30 ML UDCUP PO PRN (21:59)
[2018-07-03] MEDS ORDERED: MAGNESIUM HYDROXIDE SUSP 30 ML UDCUP PO PRN (21:59)
[2018-07-03] MEDS ORDERED: ONDANSETRON HCL INJ/PF 4 MG/2 ML SDV IV PRN (21:59)
[2018-07-03] MEDS ORDERED: ONDANSETRON 4 MG TAB.RAPDIS PO PRN (21:59)
[2018-07-03] MEDS ORDERED: INSULIN GLARGINE,HUM.REC.ANLOG 300 UNIT/3 ML INSULN.PEN SUBCUT SCH (22:15)
[2018-07-03] MEDS ORDERED: ACETAMINOPHEN 650 MG SUPP.RECT PR PRN (22:19)
[2018-07-03] MEDS ORDERED: ACETAMINOPHEN 325 MG TABLET PO PRN (22:19)
[2018-07-03] MEDS ORDERED: MORPHINE SULFATE 10 MG/ML INJ IV PRN ×2 (22:19)
[2018-07-03] MEDS ORDERED: GLUCAGON,HUMAN RECOMB 1 MG INJ IM PRN (22:24)
[2018-07-03] MEDS ORDERED: DEXTROSE 50%-WATER 25 GM/50 ML DISP.SYRIN IV PRN ×2 (22:24)
[2018-07-03] MEDS ORDERED: DEXTROSE 40% GEL 15 GM TUBE PO PRN ×2 (22:24)
--- NOTE | 2018-07-03 22:28 | PDOC H&P ---
History of Present Illness Admission Date/PCP: TEN STEELE MD Patient complains of: Diabetic left foot ulcer History of Present Illness: SARAH MARIN is a 63 year old male who presented to the emergency room with a 5-day history of low-grade fevers and general malaise. He was seen earlier on the day of admission with this complaint at the [place] clinic and he was sent here to be evaluated in the emergency room. He admits that he noted redness and swelling of his left lower extremity that gradually worsening over the last 3 or 4 days. He attributed this to urinary incontinence but his right leg shows no similar signs or symptoms and was also involved in the incontinence. He has diabetes mellitus type 2 complicated by severe peripheral neuropathy resulting in essentially no feeling in his feet and chronic constant burning pain in his lower extremities. He does not due to diabetic foot exams at home and his spouse does not check his feet from time to time for injuries or problems. In the emergency room the patient was discovered to have a diabetic foot ulcer/ abscess involving the plantar aspect of the second and third TM joints of the left foot. Patient denies prior similar episodes and has not identified any aggravating or ameliorating factors for his fevers and general malaise. He does admit to having MRSA skin infections on numerous occasions in the past, usually at sites where a small vesicle or pustule erupted and was excoriated with subsequent increased involvement of the dermis. With the diabetic foot abscess/ulcer accompanied by a leukocytosis and the patient's history of fever it was determined that the patient should be admitted to the hospitalist service with consultation to the surgical service for surgical management of the diabetic foot ulcer. Past Medical History Cardiac Medical History: Reports: Hyperlipidema, Hypertension Denies: Congestive Heart Failure, Myocardial Infarction Pulmonary Medical History: Reports: Pneumonia Denies: Asthma, Bronchitis, Chronic Obstructive Pulmonary Disease (COPD), Tuberculosis EENT Medical History: Reports: None Neurological Medical History: Denies: Hemorrhagic CVA, Ischemic CVA, Seizures Endocrine Medical History: Reports: Diabetes Mellitus Type 2, Hypothyroidism, Obesity Renal/ Medical History: Denies: Chronic Kidney Disease, Nephrolithiasis Malignancy Medical History: Reports: None GI Medical History: Denies: Cirrhosis, Gastroesophageal Reflux Disease, Hepatitis Musculoskeltal Medical History: Denies: Arthritis, Gout Skin Medical History: Reports: Other - 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 Denies: Eczema, Psoriasis Psychiatric Medical History: Denies: Alcohol Dependency, Bipolar Disorder, Depression, Substance Abuse, Tobacco Dependency Traumatic Medical History: Reports: None Hematology: Denies: Anemia, Bleeding Tendencies Infectious Medical History: Reports: Methicillin-Resistant Staph Aureus Past Surgical History Past Surgical History: Reports: Cardiac Catheterization, Orthopedic Surgery - carpel tunnel release Social History Information Source: Patient Smoking Status: Never Smoker Frequency of Alcohol Use: Rare Hx Recreational Drug Use: No Drugs: None, Marijuana Hx Prescription Drug Abuse: No - Advance Directive Resuscitation Status: Full Code Surrogate healthcare decision maker:: Spouse Family History Family History: Arthritis, CAD, Other - Heart problems (valvular disease) Parental Family History Reviewed: Yes Children Family History Reviewed: No Sibling(s) Family History Reviewed.: Yes Medication/Allergy Home Medications: Aspirin [Aspirin 325 mg Tablet] 325 mg PO DAILY 08/26/16 Clonidine HCl [Catapres 0.1 mg Tablet] 0.1 mg PO Q12 08/26/16 Gabapentin [Neurontin] 1,200 mg PO QHS PRN 08/26/16 Gabapentin [Neurontin] 600 mg PO BID 08/26/16 Glipizide [Glucotrol 10 mg Tablet] 10 mg PO BID 08/26/16 Insulin Glargine,Hum.rec.anlog [Lantus Insulin 100 Unit/mL] 50 unit SUBCUT QHS 08/26/16 Levothyroxine Sodium [Synthroid 0.15 mg Tablet] 0.15 mg PO DAILY 08/26/16 Lisinopril [Prinivil 40 mg Tablet] 40 mg PO DAILY 08/26/16 Metformin HCl [Glucophage] 1,000 mg PO BID 08/26/16 Milk Thistle 1,000 mg PO DAILY 08/26/16 Tramadol HCl [Ultram] 50 mg PO Q6H PRN #40 tablet 08/27/16 Allergies/Adverse Reactions: Penicillins Allergy (Intermediate, Verified 07/03/18 14:22) Rash Review of Systems Constitutional: PRESENT: fever(s), other - Malaise. ABSENT: anorexia, chills Eyes: ABSENT: visual disturbances, other - Ocular pain Ears: ABSENT: hearing changes, other - Ear pain Nose, Mouth, and Throat: ABSENT: mouth pain, sore throat Cardiovascular: PRESENT: as per HPI, edema - Left lower extremity red warm and swollen. ABSENT: chest pain, dyspnea on exertion, orthropnea, palpitations Respiratory: ABSENT: cough, dyspnea Gastrointestinal: ABSENT: abdominal pain, constipation, diarrhea, nausea, vomiting Genitourinary: ABSENT: dysuria, hematuria Musculoskeletal: ABSENT: back pain, muscle weakness Integumentary: PRESENT: as per HPI, erythema, pruritus, rash - Left lower extremity with patchy areas of erythema and edema extending from the area of the second and third toes up to the knee., other - Erythematous, edematous and indurated area of the plantar surface over the left second and third TMs. Neurological: ABSENT: confusion, convulsions, memory loss, syncope Psychiatric: ABSENT: anxiety, depression Endocrine: ABSENT: cold intolerance, heat intolerance Hematologic/Lymphatic: ABSENT: easy bleeding, easy bruising Physical Exam Vital Signs: Temp Pulse Resp BP Pulse Ox 100.9 F H 95 18 130/76 H 97 07/03/18 14:26 07/03/18 14:26 07/03/18 14:26 07/03/18 14:26 07/03/18 14:26 Intake & Output 07/01/18 07/02/18 07/03/18 23:59 23:59 23:59 Weight 123.5 kg General appearance: PRESENT: no acute distress, cooperative, obese Head exam: PRESENT: atraumatic, normocephalic Eye exam: PRESENT: EOMI. ABSENT: scleral icterus Ear exam: PRESENT: normal external ear exam. ABSENT: drainage Mouth exam: PRESENT: dry mucosa, neck supple Neck exam: ABSENT: JVD, thyromegaly, tracheal deviation Respiratory exam: PRESENT: clear to auscultation garth, symmetrical, unlabored Cardiovascular exam: PRESENT: RRR. ABSENT: clicks, diastolic murmur, gallop, rubs, systolic murmur Pulses: PRESENT: normal carotid pulses, normal radial pulses Vascular exam: PRESENT: normal capillary refill. ABSENT: pallor GI/Abdominal exam: PRESENT: normal bowel sounds, soft. ABSENT: tenderness Rectal exam: PRESENT: deferred Extremities exam: PRESENT: pedal edema - Left foot. ABSENT: joint swelling Musculoskeletal exam: ABSENT: deformity, dislocation Neurological exam: PRESENT: alert, oriented to person, oriented to place, oriented to time, oriented to situation, CN II-XII grossly intact, motor sensory deficit - Bilateral lower extremities with markedly decreased sensation and subjective burning paresthesia Psychiatric exam: PRESENT: appropriate affect, normal mood Skin exam: PRESENT: dry, warm, other - See description of left foot ulcer and left lower extremity changes above.. ABSENT: jaundice, urticaria Results Laboratory Results: 07/03/18 17:45 07/03/18 17:45 18 07/03/18 17:45 17:45 WBC 13.4 H RBC 4.75 Hgb 13.6 Hct 40.0 MCV 84 MCH 28.7 MCHC 34.0 RDW 13.9 Plt Count 231 Seg Neutrophils % 85.8 H Lymphocytes % 9.1 L Monocytes % 4.9 Eosinophils % 0.1 Basophils % 0.1 Absolute Neutrophils 11.5 H Absolute Lymphocytes 1.2 Absolute Monocytes 0.7 Absolute Eosinophils 0.0 Absolute Basophils 0.0 Sodium 134.5 L Potassium 3.9 Chloride 96 L Carbon Dioxide 27 Anion Gap 12 BUN 10 Creatinine 0.94 Est GFR ( Amer) > 60 Est GFR (Non-Af Amer) > 60 Glucose 270 H Calcium 9.3 Total Bilirubin 0.7 AST 19 ALT 21 Alkaline Phosphatase 117 Total Protein 6.9 Albumin 3.6 Impressions: Chest X-Ray 07/03/18 16:56 IMPRESSION: NO ACUTE RADIOGRAPHIC FINDING IN THE CHEST. Foot X-Ray 07/03/18 20:38 IMPRESSION: No erosive findings to suggest active osteomyelitis. Subacute fracture and periosteal reaction of the metatarsal bones as described. Assessment & Plan - Diagnosis (1) Diabetic foot ulcer Qualifiers: Diabetic foot ulcer location: midfoot Diabetes mellitus type: type 2 Laterality: left Non-pressure ulcer stage: limited to breakdown of skin Qualified Code(s): E11.621 - Type 2 diabetes mellitus with foot ulcer; L97.421 - Non-pressure chronic ulcer of left heel and midfoot limited to breakdown of skin; L97.421 - Non-pressure chronic ulcer of left heel and midfoot limited to breakdown of skin; L97.421 - Non-pressure chronic ulcer of left heel and midfoot limited to breakdown of skin; L97.421 - Non-pressure chronic ulcer of left heel and midfoot limited to breakdown of skin Is this a current diagnosis for this admission?: Yes Plan: Patient is started on IV antibiotics with vancomycin dosing to be determined by pharmacy. A surgical consultation is obtained with the surgical service. (2) Hyperlipidemia Qualifiers: Hyperlipidemia type: unspecified Qualified Code(s): E78.5 - Hyperlipidemia , unspecified Is this a current diagnosis for this admission?: Yes Plan: Patient will be continued on his prehospital statin regiment and a lipid panel will be obtained to assess therapy. (3) Hypertension Qualifiers: Hypertension type: essential hypertension Qualified Code(s): I10 - Essential (primary) hypertension Is this a current diagnosis for this admission?: Yes Plan: Patient will be maintained on his prehospital antihypertensive regiment and vital signs will be monitored to assess therapy. (4) Hypothyroidism (acquired) Is this a current diagnosis for this admission?: Yes Plan: Patient will be prehospital thyroid replacement regiment and a thyroid profile will be obtained to evaluate therapy. (5) Morbid obesity Is this a current diagnosis for this admission?: Yes Plan: Patient is advised to modify his lifestyle and lose weight to this end a consultation with dietary will be ordered to evaluate and treat not only his diabetic and hypertensive issues but to help him make long-term lifestyle changes beneficial to his good health. (6) Type 2 diabetes mellitus with diabetic neuropathy Qualifiers: Diabetes mellitus group home insulin use: without intermediate school teacher use Qualified Code(s): E11.40 - Type 2 diabetes mellitus with diabetic neuropathy, unspecified Is this a current diagnosis for this admission?: Yes Plan: Patient will be continued on his prehospital diabetic therapy regiment with the addition of a sliding scale before meals and at bedtime coverage utilizing Humalog. Hemoglobin A1c will be obtained to assess prior therapy. Patient states he has severe burning paresthesias of his bilateral lower extremities and his general regiment will be continued for therapy however in addition he will have available morphine sulfate administered intravenously on a sliding scale basis for pain control. - Time Time Spent: 50 to 70 Minutes Critical Time spent with patient: Less than 15 minutes Medications reviewed and adjusted accordingly: Yes Anticipated discharge: Home, Home with Homehealth - Inpatient Certification Based on my medical assessment, after consideration of the patient's comorbidities, presenting symptoms, or acuity I expect that the services needed warrant INPATIENT care.: Yes I certify that my determination is in accordance with my understanding of Medicare's requirements for reasonable and necessary INPATIENT services [42 CFR 412.3e].: Yes Medical Necessity: Need Close Monitoring Due to Risk of Patient Decompensation, Need for IV Antibiotics, Need for Surgery, Risk of Complication if Not Cared For in Hospital
[2018-07-03] MEDS ORDERED: MELATONIN 5 MG TABLET PO ONE (23:00)
[2018-07-03] MEDS ORDERED: GABAPENTIN 300 MG CAPSULE PO ONE (23:00)
[2018-07-03] MEDS ORDERED: INSULIN GLARGINE,HUM.REC.ANLOG 300 UNIT/3 ML INSULN.PEN SUBCUT ONE (23:00)
[2018-07-03] MEDS: HEPARIN SOD (PORCINE) 5,000 UNIT/ML 1 ML SYRINGE SUBCUT SCH (23:02)
[2018-07-03] MEDS: MORPHINE SULFATE 10 MG/ML INJ IV PRN (23:03)
[2018-07-04] MEDS: INSULIN LISPRO 100 UNIT/ML 3 ML VIAL SUBCUT PRN ×5 (00:11→21:54)
[2018-07-04] MEDS ORDERED: INSULIN GLARGINE,HUM.REC.ANLOG 300 UNIT/3 ML INSULN.PEN SUBCUT ONE ×2 (00:23→22:15)
[2018-07-04] MEDS: MORPHINE SULFATE 10 MG/ML INJ IV PRN ×2 (03:25→05:19)
[2018-07-04] MEDS: GABAPENTIN 300 MG CAPSULE PO SCH ×3 (05:19→21:21)
[2018-07-04] MEDS: HEPARIN SOD (PORCINE) 5,000 UNIT/ML 1 ML SYRINGE SUBCUT SCH ×3 (05:19→21:24)
[2018-07-04] MEDS ORDERED: LEVOTHYROXINE SODIUM 0.15 MG TABLET ONE (05:21)
[2018-07-04] MEDS ORDERED: DEXTROSE 50%-WATER 25 GM/50 ML DISP.SYRIN IV PRN ×2 (06:02)
[2018-07-04] MEDS ORDERED: DEXTROSE 40% GEL 15 GM TUBE PO PRN ×2 (06:02)
[2018-07-04] MEDS ORDERED: GLUCAGON,HUMAN RECOMB 1 MG INJ SUBCUT PRN (06:02)
[2018-07-04 06:07] LABS: ABSOLUTE BASOPHILS # (AUTO) 0.1 10^3/uL (0.0-0.2); ABSOLUTE LYMPHOCYTES (AUTO) 1.6 10^3/uL (0.5-4.7); ABSOLUTE MONOCYTES (AUTO) 0.9 10^3/uL (0.1-1.4); ABSOLUTE NEUT (AUTO) 9.1 10^3/uL (1.7-8.2); BASOPHILS % (AUTO) 0.4 % (0-2); EOSINOPHILS % (AUTO) 0.2 % (0-6); HEMATOCRIT 35.4 % (37.9-51.0); HEMOGLOBIN 12.2 g/dL (13.5-17.0); LYMPHOCYTES % (AUTO) 13.6 % (13-45); MEAN CORPUSCULAR HEMOGLOBIN 28.5 pg (27.0-33.4); MEAN CORPUSCULAR HGB CONC 34.5 g/dL (32.0-36.0); MEAN CORPUSCULAR VOLUME 82 fl (80-97); MONOCYTES % (AUTO) 7.4 % (3-13); PLATELET COUNT 223 10^3/uL (150-450); RED BLOOD COUNT 4.29 10^6/uL (4.35-5.55); RED CELL DISTRIBUTION WIDTH 13.7 % (11.5-14.0); SEGMENTED NEUTROPHILS % (AUTO) 78.4 % (42-78); TOTAL CELLS COUNTED % (AUTO) 100 %; WHITE BLOOD COUNT 11.7 10^3/uL (4.0-10.5)
[2018-07-04 06:11] LABS: ANION GAP 8 (5-19); BLOOD UREA NITROGEN 11 mg/dL (7-20); CALCIUM 8.7 mg/dL (8.4-10.2); CARBON DIOXIDE 26 mmol/L (22-30); CHLORIDE 98 mmol/L (98-107); CHOLESTEROL 102.94 mg/dL (0-200); GLUCOSE 244 mg/dL (75-110); POTASSIUM 3.3 mmol/L (3.6-5.0); SODIUM 132.2 mmol/L (137-145); TRIGLYCERIDES 110 mg/dL (<150)
[2018-07-04 06:22] LABS: DIRECT LDL 60 mg/dL (<100)
[2018-07-04 06:29] LABS: FREE T3 2.44 pg/mL (2.77-5.27); FREE T4 (FREE THYROXINE) 1.48 ng/dL (0.78-2.19)
[2018-07-04] MEDS: LEVOTHYROXINE SODIUM 0.15 MG TABLET PO SCH (06:30)
--- NOTE | 2018-07-04 06:41 | PDOC CONSULTATION ---
Consultation Consult Date: 07/04/18 Consult reason:: Diabetic foot ulcer History of Present Illness Admission Date/PCP: 07/03/18 22:11 TEN STEELE MD Patient complains of: Redness of the left lower extremity. Diabetic foot ulcer to the plantar surface of the left foot History of Present Illness: SARAH MARIN is a 63 year old male with a history of diabetes and diabetic neuropathy. The patient reports that he was working on a roof earlier this week and his foot fell through the roof, causing scratches up the leg. Patient reports increasing erythema and bruising to the left lower extremity around the ankle. The patient was also found to have a diabetic foot ulcer on the plantar surface of his left foot. The patient denies pain associated with the ulcer, but he has progressive diabetic neuropathy. He has difficulty with sensation below the knee. The patient reports fatigue, malaise, fevers, chills. The patient denies chest pain, shortness of breath, nausea, vomiting, melena, hematochezia, dizziness, orthostasis, headache. Past Medical History Cardiac Medical History: Reports: Hyperlipidema, Hypertension Denies: Congestive Heart Failure, Myocardial Infarction Pulmonary Medical History: Reports: Pneumonia Denies: Asthma, Bronchitis, Chronic Obstructive Pulmonary Disease (COPD), Tuberculosis EENT Medical History: Reports: None Neurological Medical History: Denies: Hemorrhagic CVA, Ischemic CVA, Seizures Endocrine Medical History: Reports: Diabetes Mellitus Type 2, Hypothyroidism, Obesity Renal/ Medical History: Denies: Chronic Kidney Disease, End Stage Renal Disease, Nephrolithiasis Malignancy Medical History: Reports: None GI Medical History: Denies: Cirrhosis, Gastroesophageal Reflux Disease, Hepatitis Musculoskeltal Medical History: Denies: Arthritis, Gout Skin Medical History: Reports: Other - 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 Denies: Eczema, Psoriasis Psychiatric Medical History: Denies: Alcohol Dependency, Bipolar Disorder, Depression, Substance Abuse, Tobacco Dependency Traumatic Medical History: Reports: None Hematology: Denies: Anemia, Bleeding Tendencies Infectious Medical History: Reports: Methicillin-Resistant Staph Aureus Past Surgical History Past Surgical History: Reports: Cardiac Catheterization, Orthopedic Surgery - carpel tunnel release Social History Lives with: Spouse/Significant other Smoking Status: Never Smoker Frequency of Alcohol Use: Rare Hx Recreational Drug Use: No Drugs: None, Marijuana Hx Prescription Drug Abuse: No - Advance Directive Resuscitation Status: Full Code Family History Family History: Arthritis, CAD, Other - Heart problems (valvular disease) Parental Family History Reviewed: Yes Children Family History Reviewed: Yes Sibling(s) Family History Reviewed.: Yes Medication/Allergy Home Medications: Aspirin [Aspirin 325 mg Tablet] 325 mg PO DAILY 08/26/16 Clonidine HCl [Catapres 0.1 mg Tablet] 0.1 mg PO Q12 08/26/16 Gabapentin [Neurontin] 1,200 mg PO QHS PRN 08/26/16 Gabapentin [Neurontin] 600 mg PO BID 08/26/16 Glipizide [Glucotrol 10 mg Tablet] 10 mg PO BID 08/26/16 Insulin Glargine,Hum.rec.anlog [Lantus Insulin 100 Unit/mL] 50 unit SUBCUT QHS 08/26/16 Levothyroxine Sodium [Synthroid 0.15 mg Tablet] 0.15 mg PO DAILY 08/26/16 Lisinopril [Prinivil 40 mg Tablet] 40 mg PO DAILY 08/26/16 Metformin HCl [Glucophage] 1,000 mg PO BID 08/26/16 Milk Thistle 1,000 mg PO DAILY 08/26/16 Tramadol HCl [Ultram] 50 mg PO Q6H PRN #40 tablet 08/27/16 Allergies/Adverse Reactions: Penicillins Allergy (Intermediate, Verified 07/03/18 14:22) Rash Review of Systems Constitutional: PRESENT: chills, fatigue, fever(s), weakness Eyes: ABSENT: visual disturbances Ears: ABSENT: hearing changes Nose, Mouth, and Throat: ABSENT: sore throat Cardiovascular: ABSENT: chest pain, palpitations Respiratory: ABSENT: cough, dyspnea Gastrointestinal: ABSENT: abdominal pain, hematemesis, hematochezia, melena, nausea Genitourinary: PRESENT: dysuria, other - Urinary incontinence Musculoskeletal: ABSENT: back pain Integumentary: PRESENT: pruritus, rash, wounds - Bilateral upper and lower extremities. Erythema of the left lower extremity around the ankle. Neurological: PRESENT: paresthesias - Diabetic neuropathy bilateral lower extremities Psychiatric: ABSENT: anxiety, depression Endocrine: ABSENT: cold intolerance, heat intolerance Hematologic/Lymphatic: ABSENT: easy bleeding, easy bruising Physical Exam Vital Signs: Temp Pulse Resp BP Pulse Ox 99.6 F 95 25 H 137/85 H 96 07/04/18 03:00 07/03/18 14:26 07/04/18 04:01 07/04/18 04:01 07/04/18 04:01 General appearance: PRESENT: no acute distress Head exam: PRESENT: atraumatic, normocephalic Eye exam: PRESENT: EOMI, PERRLA Mouth exam: PRESENT: neck supple Neck exam: ABSENT: meningismus, tenderness, thyromegaly, tracheal deviation Respiratory exam: PRESENT: clear to auscultation garth, unlabored. ABSENT: chest wall tenderness, tachypnea, wheezes Cardiovascular exam: PRESENT: RRR Pulses: PRESENT: normal radial pulses Vascular exam: ABSENT: pallor GI/Abdominal exam: PRESENT: soft. ABSENT: distended, firm, guarding, tenderness Rectal exam: PRESENT: deferred Extremities exam: PRESENT: other - Multiple small wounds with erythema and edema at the left ankle, circumferentially. Diabetic ulcer of the plantar surface of the left foot. No obvious necrotic tissue or purulence present. Neurological exam: PRESENT: alert, awake, oriented to person, oriented to place , oriented to time, oriented to situation, motor sensory deficit - Decreased sensation bilateral feet Psychiatric exam: ABSENT: agitated, anxious, depressed Focused psych exam: ABSENT: delusional Skin exam: PRESENT: erythema - Left ankle Results Laboratory Results: 07/04/18 05:25 07/03/18 07/04/18 22:28 05:25 WBC 11.7 H RBC 4.29 L Hgb 12.2 L Hct 35.4 L MCV 82 MCH 28.5 MCHC 34.5 RDW 13.7 Plt Count 223 Seg Neutrophils % 78.4 H Lymphocytes % 13.6 Monocytes % 7.4 Eosinophils % 0.2 Basophils % 0.4 Absolute Neutrophils 9.1 H Absolute Lymphocytes 1.6 Absolute Monocytes 0.9 Absolute Eosinophils 0.0 Absolute Basophils 0.1 Lactic Acid 0.9 Impressions: Chest X-Ray 07/03/18 16:56 IMPRESSION: NO ACUTE RADIOGRAPHIC FINDING IN THE CHEST. Foot X-Ray 07/03/18 20:38 IMPRESSION: No erosive findings to suggest active osteomyelitis. Subacute fracture and periosteal reaction of the metatarsal bones as described. Assessment & Plan - Diagnosis (1) Cellulitis of left ankle Is this a current diagnosis for this admission?: Yes (2) Diabetic foot ulcer Qualifiers: Diabetic foot ulcer location: midfoot Diabetes mellitus type: type 2 Laterality: left Non-pressure ulcer stage: limited to breakdown of skin Qualified Code(s): E11.621 - Type 2 diabetes mellitus with foot ulcer; L97.421 - Non-pressure chronic ulcer of left heel and midfoot limited to breakdown of skin; L97.421 - Non-pressure chronic ulcer of left heel and midfoot limited to breakdown of skin; L97.421 - Non-pressure chronic ulcer of left heel and midfoot limited to breakdown of skin; L97.421 - Non-pressure chronic ulcer of left heel and midfoot limited to breakdown of skin Is this a current diagnosis for this admission?: Yes - Plan Summary Plan Summary: This is a 63-year-old male that suffered trauma to the left lower extremity. The patient developed erythema and bruising. The patient also was noted to have a diabetic ulcer on the plantar surface of the left foot. X-rays reveal a chronic fracture of the left foot, without obvious osteomyelitis. At present, I cannot identify any necrotic tissue or active purulence on physical exam. At this time I recommend continuation of the patient's antibiotics, with elevation of the left lower extremity. The patient should avoid pressure on the left foot. Use bacitracin ointment to the left foot ulcer. Referral to the wound care clinic after discharge. No surgical intervention required at this time.
[2018-07-04 06:43] LABS: THYROID STIMULATING HORMONE 1.12 uIU/mL (0.47-4.68)
[2018-07-04] MEDS: DOCUSATE SODIUM 100 MG CAPSULE PO SCH ×2 (10:29→17:35)
[2018-07-04] MEDS: METFORMIN HCL 500 MG TABLET PO SCH ×2 (10:29→17:35)
[2018-07-04] MEDS: LISINOPRIL 10 MG TABLET PO SCH (10:30)
[2018-07-04] MEDS: VANCOMYCIN HCL 1,500 MG in DEXTROSE 5%-WATER 250 ML IV SCH ×2 (10:31→21:19)
[2018-07-04] MEDS: ASPIRIN 325 MG TABLET PO SCH (10:55)
[2018-07-04] MEDS: CLONIDINE HCL 0.1 MG TABLET PO SCH ×2 (10:56→21:20)
[2018-07-04] MEDS: GLIPIZIDE 10 MG TABLET PO SCH ×2 (10:56→17:35)
--- NOTE | 2018-07-04 19:10 | PDOC PROGRESS REPORT ---
Subjective Progress Note for:: 07/04/18 Subjective:: Is a 61 years old male patient admitted with left leg pain and fever. Morning I seen him resting in bed comfortably his left ankle area is erythematous but there is no any fluctuation. And he has diabetic foot ulcer on the plantar aspect of his the same left foot. Since there is no an abscess Dr. Toro recommended just medical management and wound care. This morning his blood works shows mild hyponatremia with sodium of 132 and mild hypokalemia with potassium of 3.3. Reason For Visit: DIABETIC LEFT FOOT ULCER Physical Exam Vital Signs: Temp Pulse Resp BP Pulse Ox 98.2 F 86 18 109/66 97 07/04/18 15:37 07/04/18 15:37 07/04/18 15:37 07/04/18 15:37 07/04/18 15:37 Intake & Output 07/03/18 07/04/18 07/05/18 06:59 06:59 06:59 Intake Total 540 Balance 540 General appearance: PRESENT: no acute distress Neck exam: ABSENT: carotid bruit, JVD, lymphadenopathy, thyromegaly Respiratory exam: PRESENT: clear to auscultation garth. ABSENT: rales, rhonchi, wheezes Cardiovascular exam: PRESENT: RRR. ABSENT: diastolic murmur, rubs, systolic murmur GI/Abdominal exam: PRESENT: normal bowel sounds, soft. ABSENT: distended, guarding, mass, organolmegaly, rebound, tenderness Musculoskeletal exam: PRESENT: other - Erythema of the left ankle and dry ulcerated lesion involving the plantar aspect of his left foot. Neurological exam: PRESENT: alert, awake, oriented to time, oriented to situation Psychiatric exam: PRESENT: normal mood Results Laboratory Results: 07/04/18 05:25 07/04/18 05:25 07/03/18 07/04/18 07/04/18 22:28 05:25 05:25 WBC 11.7 H RBC 4.29 L Hgb 12.2 L Hct 35.4 L MCV 82 MCH 28.5 MCHC 34.5 RDW 13.7 Plt Count 223 Seg Neutrophils % 78.4 H Lymphocytes % 13.6 Monocytes % 7.4 Eosinophils % 0.2 Basophils % 0.4 Absolute Neutrophils 9.1 H Absolute Lymphocytes 1.6 Absolute Monocytes 0.9 Absolute Eosinophils 0.0 Absolute Basophils 0.1 Sodium 132.2 L Potassium 3.3 L Chloride 98 Carbon Dioxide 26 Anion Gap 8 BUN 11 Creatinine 0.89 Est GFR ( Amer) > 60 Est GFR (Non-Af Amer) > 60 Glucose 244 H Lactic Acid 0.9 Calcium 8.7 Magnesium 1.7 Triglycerides 110 Cholesterol 102.94 LDL Cholesterol Direct 60 VLDL Cholesterol 22.0 HDL Cholesterol 31 L TSH Free T4 Free T3 pg/mL 07/04/18 05:25 WBC RBC Hgb Hct MCV MCH MCHC RDW Plt Count Seg Neutrophils % Lymphocytes % Monocytes % Eosinophils % Basophils % Absolute Neutrophils Absolute Lymphocytes Absolute Monocytes Absolute Eosinophils Absolute Basophils Sodium Potassium Chloride Carbon Dioxide Anion Gap BUN Creatinine Est GFR ( Amer) Est GFR (Non-Af Amer) Glucose Lactic Acid Calcium Magnesium Triglycerides Cholesterol LDL Cholesterol Direct VLDL Cholesterol HDL Cholesterol TSH 1.12 Free T4 1.48 Free T3 pg/mL 2.44 L Impressions: Chest X-Ray 07/03/18 16:56 IMPRESSION: NO ACUTE RADIOGRAPHIC FINDING IN THE CHEST. Foot X-Ray 07/03/18 20:38 IMPRESSION: No erosive findings to suggest active osteomyelitis. Subacute fracture and periosteal reaction of the metatarsal bones as described. Assessment & Plan - Diagnosis (1) Cellulitis of left ankle Is this a current diagnosis for this admission?: Yes Plan: Continue current antibiotics (2) Diabetic infection of left foot Is this a current diagnosis for this admission?: Yes Plan: Continue current antibiotics and wound care. (3) Hyponatremia Is this a current diagnosis for this admission?: Yes Plan: BMP in a.m. (4) Hypokalemia Is this a current diagnosis for this admission?: Yes Plan: BMP in a.m. (5) Type 2 diabetes mellitus with diabetic neuropathy Qualifiers: Diabetes mellitus terminal operations manager insulin use: without terminal operations manager use Qualified Code(s): E11.40 - Type 2 diabetes mellitus with diabetic neuropathy, unspecified Is this a current diagnosis for this admission?: Yes Plan: Patient advised to comply with his diabetic medication and close follow-up with his primary care physician. (7) Hyperlipidemia Qualifiers: Hyperlipidemia type: unspecified Qualified Code(s): E78.5 - Hyperlipidemia , unspecified Is this a current diagnosis for this admission?: Yes Plan: Continue home medications (8) Hypertension Qualifiers: Hypertension type: essential hypertension Qualified Code(s): I10 - Essential (primary) hypertension Is this a current diagnosis for this admission?: Yes Plan: Continue home medication (9) Morbid obesity Is this a current diagnosis for this admission?: Yes Plan: And advised to do lifestyle modification.
[2018-07-04] MEDS: MELATONIN 5 MG TABLET PO SCH (21:20)
[2018-07-04] MEDS: TRAMADOL HCL 50 MG TABLET PO PRN (21:51)
[2018-07-04] MEDS: INSULIN GLARGINE,HUM.REC.ANLOG 300 UNIT/3 ML INSULN.PEN SUBCUT SCH (21:53)
[2018-07-04] MEDS: FLUTICASONE NASAL SPRAY 50 MCG/SPRY 120 SPRAY/16 GM NASL SCH (22:56)
[2018-07-05 06:46] LABS: ABSOLUTE EOSINOPHILS # (AUTO) 0.1 10^3/uL (0.0-0.6); ABSOLUTE LYMPHOCYTES (AUTO) 1.7 10^3/uL (0.5-4.7); ABSOLUTE MONOCYTES (AUTO) 0.9 10^3/uL (0.1-1.4); ABSOLUTE NEUT (AUTO) 6.1 10^3/uL (1.7-8.2); BASOPHILS % (AUTO) 0.4 % (0-2); EOSINOPHILS % (AUTO) 1.3 % (0-6); HEMATOCRIT 34.8 % (37.9-51.0); LYMPHOCYTES % (AUTO) 19.3 % (13-45); MEAN CORPUSCULAR HEMOGLOBIN 28.7 pg (27.0-33.4); MEAN CORPUSCULAR HGB CONC 34.6 g/dL (32.0-36.0); MEAN CORPUSCULAR VOLUME 83 fl (80-97); MONOCYTES % (AUTO) 10.1 % (3-13); PLATELET COUNT 242 10^3/uL (150-450); RED BLOOD COUNT 4.19 10^6/uL (4.35-5.55); RED CELL DISTRIBUTION WIDTH 13.9 % (11.5-14.0); SEGMENTED NEUTROPHILS % (AUTO) 68.9 % (42-78); TOTAL CELLS COUNTED % (AUTO) 100 %; WHITE BLOOD COUNT 8.9 10^3/uL (4.0-10.5)
[2018-07-05] MEDS: HEPARIN SOD (PORCINE) 5,000 UNIT/ML 1 ML SYRINGE SUBCUT SCH ×3 (06:56→22:08)
[2018-07-05] MEDS: GABAPENTIN 300 MG CAPSULE PO SCH ×3 (06:56→22:07)
[2018-07-05] MEDS: LEVOTHYROXINE SODIUM 0.15 MG TABLET PO SCH (06:56)
[2018-07-05 07:35] LABS: ANION GAP 8 (5-19); BLOOD UREA NITROGEN 11 mg/dL (7-20); CALCIUM 8.7 mg/dL (8.4-10.2); CARBON DIOXIDE 28 mmol/L (22-30); CHLORIDE 100 mmol/L (98-107); GLUCOSE 136 mg/dL (75-110); POTASSIUM 3.3 mmol/L (3.6-5.0)
[2018-07-05] MEDS: LISINOPRIL 10 MG TABLET PO SCH (09:17)
[2018-07-05] MEDS: FLUTICASONE NASAL SPRAY 50 MCG/SPRY 120 SPRAY/16 GM NASL SCH ×2 (09:17→22:06)
[2018-07-05] MEDS: DOCUSATE SODIUM 100 MG CAPSULE PO SCH ×2 (09:17→17:28)
[2018-07-05] MEDS: ASPIRIN 325 MG TABLET PO SCH (09:18)
[2018-07-05] MEDS: CLONIDINE HCL 0.1 MG TABLET PO SCH ×2 (09:18→22:06)
[2018-07-05] MEDS: GLIPIZIDE 10 MG TABLET PO SCH ×2 (09:18→17:28)
[2018-07-05] MEDS: METFORMIN HCL 500 MG TABLET PO SCH ×2 (09:18→17:28)
[2018-07-05] MEDS: VANCOMYCIN HCL 1,500 MG in DEXTROSE 5%-WATER 250 ML IV SCH ×2 (09:19→22:05)
[2018-07-05] MEDS: MORPHINE SULFATE 10 MG/ML INJ IV PRN (09:19)
--- NOTE | 2018-07-05 14:02 | PDOC PROGRESS REPORT ---
Subjective Progress Note for:: 07/05/18 Subjective:: patient comfortable, denies left foot or left leg pain Reason For Visit: DIABETIC LEFT FOOT ULCER Physical Exam Vital Signs: Temp Pulse Resp BP Pulse Ox 98.7 F 58 L 16 114/53 L 95 07/05/18 11:36 07/05/18 11:36 07/05/18 11:36 07/05/18 11:36 07/05/18 11:36 Intake & Output 07/04/18 07/05/18 07/06/18 06:59 06:59 06:59 Intake Total 1040 480 Balance 1040 480 Weight 123.5 kg 123.6 kg General appearance: PRESENT: no acute distress Extremities exam: PRESENT: +2 edema - left leg and foot; no tenderness on palpation of either L foot or leg Skin exam: PRESENT: other - L leg: area of lwer 1/3 fixed pigment redness Results Laboratory Results: 07/05/18 06:28 07/05/18 06:28 07/05/18 07/05/18 06:28 06:28 WBC 8.9 RBC 4.19 L Hgb 12.0 L Hct 34.8 L MCV 83 MCH 28.7 MCHC 34.6 RDW 13.9 Plt Count 242 Seg Neutrophils % 68.9 Lymphocytes % 19.3 Monocytes % 10.1 Eosinophils % 1.3 Basophils % 0.4 Absolute Neutrophils 6.1 Absolute Lymphocytes 1.7 Absolute Monocytes 0.9 Absolute Eosinophils 0.1 Absolute Basophils 0.0 Sodium 136.0 L Potassium 3.3 L Chloride 100 Carbon Dioxide 28 Anion Gap 8 BUN 11 Creatinine 0.92 Est GFR ( Amer) > 60 Est GFR (Non-Af Amer) > 60 Glucose 136 H Calcium 8.7 Magnesium 2.0 Impressions: Chest X-Ray 07/03/18 16:56 IMPRESSION: NO ACUTE RADIOGRAPHIC FINDING IN THE CHEST. Foot X-Ray 07/03/18 20:38 IMPRESSION: No erosive findings to suggest active osteomyelitis. Subacute fracture and periosteal reaction of the metatarsal bones as described. Assessment & Plan - Diagnosis (2) Fracture of 5th metatarsal Qualifiers: Encounter type: initial encounter Fracture type: closed Fracture alignment: displaced Laterality: left Qualified Code(s): S92.352A - Displaced fracture of fifth metatarsal bone, left foot, initial encounter for closed fracture Is this a current diagnosis for this admission?: Yes - Plan Summary Plan Summary: A/ left foot/leg edema Left distal 1/3 leg fixed pigment discoloration as per venostasis Small Left plantar forefoot ulcer No pain on palpation of left foot or leg P/ No General Surgery issues identified and no intervention needed at this point. I will sign off; please, call me with questions
[2018-07-05] MEDS: INSULIN LISPRO 100 UNIT/ML 3 ML VIAL SUBCUT PRN ×3 (14:16→22:07)
--- NOTE | 2018-07-05 14:41 | PDOC PROGRESS REPORT ---
Subjective Progress Note for:: 07/05/18 Subjective:: I seen patient resting in bed comfortably. He is complaining of some nasal congestion for which she was started on Flonase. His wound culture grew gram- positive cocci in cluster and group A beta-hemolytic Streptococcus. Patient has been getting vancomycin and will adjust his antibiotics based on his clinical response and sensitivity pattern. Reason For Visit: DIABETIC LEFT FOOT ULCER Physical Exam Vital Signs: Temp Pulse Resp BP Pulse Ox 98.7 F 58 L 16 114/53 L 95 07/05/18 11:36 07/05/18 11:36 07/05/18 11:36 07/05/18 11:36 07/05/18 11:36 Intake & Output 07/04/18 07/05/18 07/06/18 06:59 06:59 06:59 Intake Total 1040 480 Balance 1040 480 Weight 123.5 kg 123.6 kg General appearance: PRESENT: no acute distress Head exam: PRESENT: atraumatic Neck exam: ABSENT: carotid bruit, JVD, lymphadenopathy, thyromegaly Respiratory exam: PRESENT: clear to auscultation garth. ABSENT: rales, rhonchi, wheezes Cardiovascular exam: PRESENT: RRR. ABSENT: diastolic murmur, rubs, systolic murmur GI/Abdominal exam: PRESENT: normal bowel sounds, soft. ABSENT: distended, guarding, mass, organolmegaly, rebound, tenderness Neurological exam: PRESENT: alert, awake Psychiatric exam: PRESENT: normal mood Results Laboratory Results: 07/05/18 06:28 07/05/18 06:28 07/05/18 07/05/18 06:28 06:28 WBC 8.9 RBC 4.19 L Hgb 12.0 L Hct 34.8 L MCV 83 MCH 28.7 MCHC 34.6 RDW 13.9 Plt Count 242 Seg Neutrophils % 68.9 Lymphocytes % 19.3 Monocytes % 10.1 Eosinophils % 1.3 Basophils % 0.4 Absolute Neutrophils 6.1 Absolute Lymphocytes 1.7 Absolute Monocytes 0.9 Absolute Eosinophils 0.1 Absolute Basophils 0.0 Sodium 136.0 L Potassium 3.3 L Chloride 100 Carbon Dioxide 28 Anion Gap 8 BUN 11 Creatinine 0.92 Est GFR ( Amer) > 60 Est GFR (Non-Af Amer) > 60 Glucose 136 H Calcium 8.7 Magnesium 2.0 Impressions: Chest X-Ray 07/03/18 16:56 IMPRESSION: NO ACUTE RADIOGRAPHIC FINDING IN THE CHEST. Foot X-Ray 07/03/18 20:38 IMPRESSION: No erosive findings to suggest active osteomyelitis. Subacute fracture and periosteal reaction of the metatarsal bones as described. Assessment & Plan - Diagnosis (1) Cellulitis of left ankle Is this a current diagnosis for this admission?: Yes Plan: Continue vancomycin. (2) Diabetic infection of left foot Is this a current diagnosis for this admission?: Yes Plan: Continue current antibiotics and wound care. (3) Hyponatremia Is this a current diagnosis for this admission?: Yes Plan: Improving (4) Hypokalemia Is this a current diagnosis for this admission?: Yes Plan: Improving (5) Type 2 diabetes mellitus with diabetic neuropathy Qualifiers: Diabetes mellitus skilled nursing insulin use: without skilled nursing use Qualified Code(s): E11.40 - Type 2 diabetes mellitus with diabetic neuropathy, unspecified Is this a current diagnosis for this admission?: Yes Plan: Patient advised to comply with his diabetic medication and close follow-up with his primary care physician. (6) History of stroke Is this a current diagnosis for this admission?: Yes Plan: Continue home medications (7) Hyperlipidemia Qualifiers: Hyperlipidemia type: unspecified Qualified Code(s): E78.5 - Hyperlipidemia, unspecified Is this a current diagnosis for this admission?: Yes Plan: Continue home medications (8) Hypertension Qualifiers: Hypertension type: essential hypertension Qualified Code(s): I10 - Essential (primary) hypertension Is this a current diagnosis for this admission?: Yes Plan: Continue home medication (9) Morbid obesity Is this a current diagnosis for this admission?: Yes Plan: And advised to do lifestyle modification.
--- NOTE | 2018-07-05 17:42 | RADIOLOGY REPORT (SQ) ---
EXAM DESCRIPTION: MRI LT LOWER EXTREMITY WITHOUT COMPLETED DATE/TIME: 07/05/2018 5:15 pm REASON FOR STUDY: r/o Osteomyelitis COMPARISON: Plain radiographs TECHNIQUE: Multiplanar imaging of the left foot to include fat and fluid sensitive sequences. LIMITATIONS: None. FINDINGS: BONE MARROW: No marrow signal alteration. Specifically no marrow replacement or marrow ed priyanka. No evidence for osteomyelitis. No cortical break through. SOFT TISSUES: Dorsal soft tissue swelling. No abscess OTHER: No other significant finding. IMPRESSION: No osteomyelitis. No soft tissue abscess TECHNICAL DOCUMENTATION: JOB ID: [id number] [employer]- All Rights Reserved Reading location - IP/workstation name: [email or web address]
[2018-07-05] MEDS: INSULIN GLARGINE,HUM.REC.ANLOG 300 UNIT/3 ML INSULN.PEN SUBCUT SCH (22:06)
[2018-07-05 22:50] LABS: VANCOMYCIN,TROUGH 9.3 ug/mL (5.0-20.0)
[2018-07-05] MEDS: MELATONIN 5 MG TABLET PO SCH (23:07)
[2018-07-05] MEDS: TRAMADOL HCL 50 MG TABLET PO PRN (23:07)
[2018-07-06] MEDS: LEVOTHYROXINE SODIUM 0.15 MG TABLET PO SCH (05:28)
[2018-07-06] MEDS: HEPARIN SOD (PORCINE) 5,000 UNIT/ML 1 ML SYRINGE SUBCUT SCH ×3 (05:28→22:14)
[2018-07-06] MEDS: GABAPENTIN 300 MG CAPSULE PO SCH ×3 (06:24→22:17)
[2018-07-06 07:00] LABS: ABSOLUTE BASOPHILS # (AUTO) 0.1 10^3/uL (0.0-0.2); ABSOLUTE EOSINOPHILS # (AUTO) 0.2 10^3/uL (0.0-0.6); ABSOLUTE LYMPHOCYTES (AUTO) 1.9 10^3/uL (0.5-4.7); ABSOLUTE MONOCYTES (AUTO) 0.8 10^3/uL (0.1-1.4); ABSOLUTE NEUT (AUTO) 5.9 10^3/uL (1.7-8.2); BASOPHILS % (AUTO) 0.7 % (0-2); HEMATOCRIT 33.8 % (37.9-51.0); HEMOGLOBIN 11.8 g/dL (13.5-17.0); LYMPHOCYTES % (AUTO) 21.2 % (13-45); MEAN CORPUSCULAR HEMOGLOBIN 29.1 pg (27.0-33.4); MEAN CORPUSCULAR VOLUME 83 fl (80-97); MONOCYTES % (AUTO) 8.8 % (3-13); PLATELET COUNT 248 10^3/uL (150-450); RED BLOOD COUNT 4.06 10^6/uL (4.35-5.55); RED CELL DISTRIBUTION WIDTH 13.3 % (11.5-14.0); SEGMENTED NEUTROPHILS % (AUTO) 67.3 % (42-78); TOTAL CELLS COUNTED % (AUTO) 100 %; WHITE BLOOD COUNT 8.8 10^3/uL (4.0-10.5)
[2018-07-06 07:26] LABS: ANION GAP 8 (5-19); BLOOD UREA NITROGEN 10 mg/dL (7-20); CALCIUM 8.8 mg/dL (8.4-10.2); CARBON DIOXIDE 29 mmol/L (22-30); CHLORIDE 100 mmol/L (98-107); GLUCOSE 135 mg/dL (75-110); POTASSIUM 4.2 mmol/L (3.6-5.0); SODIUM 136.5 mmol/L (137-145)
[2018-07-06] MEDS: VANCOMYCIN HCL 1,500 MG in DEXTROSE 5%-WATER 250 ML IV SCH (10:58)
[2018-07-06] MEDS: FLUTICASONE NASAL SPRAY 50 MCG/SPRY 120 SPRAY/16 GM NASL SCH ×2 (10:59→22:14)
[2018-07-06] MEDS: ASPIRIN 325 MG TABLET PO SCH (10:59)
[2018-07-06] MEDS: LISINOPRIL 10 MG TABLET PO SCH (10:59)
[2018-07-06] MEDS: TRAMADOL HCL 50 MG TABLET PO PRN ×2 (11:00→17:20)
[2018-07-06] MEDS: GLIPIZIDE 10 MG TABLET PO SCH ×2 (11:00→17:19)
[2018-07-06] MEDS: CLONIDINE HCL 0.1 MG TABLET PO SCH ×2 (11:00→22:17)
[2018-07-06] MEDS: METFORMIN HCL 500 MG TABLET PO SCH ×2 (11:17→17:19)
[2018-07-06] MEDS: INSULIN LISPRO 100 UNIT/ML 3 ML VIAL SUBCUT PRN ×3 (11:29→22:17)
[2018-07-06] MEDS: DOCUSATE SODIUM 100 MG CAPSULE PO SCH ×2 (11:30→17:20)
--- NOTE | 2018-07-06 11:44 | PDOC PROGRESS REPORT ---
Subjective Subjective:: I seen patient sitting on recliner and chatting with his . He is awake alert oriented. He does not have new complaints. His MRI of left foot is negative for osteomyelitis. His wound culture grew gram-positive cocci in cluster but there is no suspicious identification so far. Species identification and sensitivity pattern will be posted tomorrow. Reason For Visit: DIABETIC LEFT FOOT ULCER Physical Exam Vital Signs: Temp Pulse Resp BP Pulse Ox 98.9 F 64 17 121/53 L 92 07/06/18 08:51 07/06/18 08:51 07/06/18 08:51 07/06/18 08:51 07/06/18 08:51 Intake & Output 07/05/18 07/06/18 07/07/18 06:59 06:59 06:59 Intake Total 1040 1979 Balance 1040 1979 Weight 123.6 kg 121.2 kg General appearance: PRESENT: no acute distress, well-developed, well-nourished Head exam: PRESENT: atraumatic, normocephalic Eye exam: PRESENT: conjunctiva pink, EOMI, PERRLA. ABSENT: scleral icterus Ear exam: PRESENT: normal external ear exam Mouth exam: PRESENT: moist, tongue midline Neck exam: ABSENT: carotid bruit, JVD, lymphadenopathy, thyromegaly Respiratory exam: PRESENT: clear to auscultation garth. ABSENT: rales, rhonchi, wheezes Cardiovascular exam: PRESENT: RRR. ABSENT: diastolic murmur, rubs, systolic murmur Pulses: PRESENT: normal dorsalis pedis pul Vascular exam: PRESENT: normal capillary refill GI/Abdominal exam: PRESENT: normal bowel sounds, soft. ABSENT: distended, guarding, mass, organolmegaly, rebound, tenderness Rectal exam: PRESENT: deferred Extremities exam: PRESENT: full ROM, other - Erythema of the left ankle area is decreasing. Infected laceration wound is on his upper extremity are healing.. ABSENT: calf tenderness, clubbing, pedal edema Neurological exam: PRESENT: alert, awake, oriented to person, oriented to place, oriented to time, oriented to situation, CN II-XII grossly intact. ABSENT: motor sensory deficit Psychiatric exam: PRESENT: appropriate affect, normal mood. ABSENT: homicidal ideation, suicidal ideation Skin exam: PRESENT: dry, intact, warm. ABSENT: cyanosis, rash Results Laboratory Results: 07/06/18 06:40 07/06/18 06:40 07/06/18 07/06/18 06:40 06:40 WBC 8.8 RBC 4.06 L Hgb 11.8 L Hct 33.8 L MCV 83 MCH 29.1 MCHC 35.0 RDW 13.3 Plt Count 248 Seg Neutrophils % 67.3 Lymphocytes % 21.2 Monocytes % 8.8 Eosinophils % 2.0 Basophils % 0.7 Absolute Neutrophils 5.9 Absolute Lymphocytes 1.9 Absolute Monocytes 0.8 Absolute Eosinophils 0.2 Absolute Basophils 0.1 Sodium 136.5 L Potassium 4.2 Chloride 100 Carbon Dioxide 29 Anion Gap 8 BUN 10 Creatinine 0.87 Est GFR ( Amer) > 60 Est GFR (Non-Af Amer) > 60 Glucose 135 H Calcium 8.8 Magnesium 2.0 07/03/18 22:45 Arm Gram Stain - Final Impressions: Chest X-Ray 07/03/18 16:56 IMPRESSION: NO ACUTE RADIOGRAPHIC FINDING IN THE CHEST. Foot X-Ray 07/03/18 20:38 IMPRESSION: No erosive findings to suggest active osteomyelitis. Subacute fracture and periosteal reaction of the metatarsal bones as described. Lower Extremity MRI 07/05/18 00:00 IMPRESSION: No osteomyelitis. No soft tissue abscess Assessment & Plan - Diagnosis (1) Cellulitis of left ankle Is this a current diagnosis for this admission?: Yes Plan: MRI negative for osteomyelitis. (2) Diabetic infection of left foot Is this a current diagnosis for this admission?: Yes Plan: Continue current antibiotics and wound care. (3) Hyponatremia Is this a current diagnosis for this admission?: Yes Plan: Improving (4) Hypokalemia Is this a current diagnosis for this admission?: Yes Plan: Has resolved. (5) Type 2 diabetes mellitus with diabetic neuropathy Qualifiers: Diabetes mellitus mcfp insulin use: without watermaster use Qualified Code(s): E11.40 - Type 2 diabetes mellitus with diabetic neuropathy, unspecified Is this a current diagnosis for this admission?: Yes Plan: Patient advised to comply with his diabetic medication and close follow-up with his primary care physician. (6) History of stroke Is this a current diagnosis for this admission?: Yes Plan: Continue home medications (7) Hyperlipidemia Qualifiers: Hyperlipidemia type: unspecified Qualified Code(s): E78.5 - Hyperlipidemia, unspecified Is this a current diagnosis for this admission?: Yes Plan: Continue home medications (8) Hypertension Qualifiers: Hypertension type: essential hypertension Qualified Code(s): I10 - Essential (primary) hypertension Is this a current diagnosis for this admission?: Yes Plan: Continue home medication (9) Morbid obesity Is this a current diagnosis for this admission?: Yes Plan: And advised to do lifestyle modification.
[2018-07-06] MEDS: VANCOMYCIN HCL 1,000 MG in DEXTROSE 5%-WATER 250 ML IV SCH (17:24)
[2018-07-06] MEDS: MELATONIN 5 MG TABLET PO SCH (22:15)
[2018-07-06] MEDS: OXYCODONE-ACETAMINOPHEN 5-325 MG TABLET PO PRN (22:15)
[2018-07-06] MEDS: INSULIN GLARGINE,HUM.REC.ANLOG 300 UNIT/3 ML INSULN.PEN SUBCUT SCH (22:18)
[2018-07-07] MEDS ORDERED: VANCOMYCIN HCL INJ 1000 MG VIAL ONE (01:56)
[2018-07-07] MEDS: VANCOMYCIN HCL 1,000 MG in DEXTROSE 5%-WATER 250 ML IV SCH ×2 (02:15→10:59)
[2018-07-07] MEDS: HEPARIN SOD (PORCINE) 5,000 UNIT/ML 1 ML SYRINGE SUBCUT SCH ×2 (05:44→13:34)
[2018-07-07] MEDS: LEVOTHYROXINE SODIUM 0.15 MG TABLET PO SCH (05:44)
[2018-07-07] MEDS: GABAPENTIN 300 MG CAPSULE PO SCH ×2 (06:43→13:35)
[2018-07-07] MEDS: INSULIN LISPRO 100 UNIT/ML 3 ML VIAL SUBCUT PRN ×3 (07:36→16:45)
[2018-07-07] MEDS: GLIPIZIDE 10 MG TABLET PO SCH (07:37)
[2018-07-07] MEDS: METFORMIN HCL 500 MG TABLET PO SCH (07:37)
[2018-07-07] MEDS: TRAMADOL HCL 50 MG TABLET PO PRN (11:00)
[2018-07-07] MEDS: LISINOPRIL 10 MG TABLET PO SCH (11:00)
[2018-07-07] MEDS: CLONIDINE HCL 0.1 MG TABLET PO SCH (11:00)
[2018-07-07] MEDS: ASPIRIN 325 MG TABLET PO SCH (11:00)
[2018-07-07] MEDS: FLUTICASONE NASAL SPRAY 50 MCG/SPRY 120 SPRAY/16 GM NASL SCH (11:01)
[2018-07-07] MEDS: DOCUSATE SODIUM 100 MG CAPSULE PO SCH (11:02)
[2018-07-07] MEDS ORDERED: METOPROLOL TARTRATE 50 MG TABLET PO SCH (12:30)
[2018-07-07] MEDS: OXYCODONE-ACETAMINOPHEN 5-325 MG TABLET PO PRN (13:35)
--- NOTE | 2018-07-07 15:18 | PDOC CONSULTATION ---
History of Present Illness Admission Date/PCP: 07/03/18 22:11 TEN STEELE MD Patient complains of: Left foot pain History of Present Illness: SARAH MARIN is a 63 year old male who was admitted to the hospital for diabetic ulceration. Patient has long-standing history of diabetes and stroke. Radiographs were done upon admission which demonstrated a subacute fracture of the fifth metatarsal. Patient on questioning denies remembering significant traumatic event previously. He does note chronic neuropathy of the left lower extremity and thus is unaware of pain at times. He has noticed increased swelling over the past few weeks. Denies fever chills or sweats. Pain 0/10. Notes chronic numbness. Past Medical History Cardiac Medical History: Reports: Hyperlipidema, Hypertension Denies: Congestive Heart Failure, Myocardial Infarction Pulmonary Medical History: Reports: Pneumonia Denies: Asthma, Bronchitis, Chronic Obstructive Pulmonary Disease (COPD), Tuberculosis EENT Medical History: Reports: None Neurological Medical History: Denies: Hemorrhagic CVA, Ischemic CVA, Seizures Endocrine Medical History: Reports: Diabetes Mellitus Type 2, Hypothyroidism, Obesity Renal/ Medical History: Denies: Chronic Kidney Disease, End Stage Renal Disease, Nephrolithiasis Malignancy Medical History: Reports: None GI Medical History: Denies: Cirrhosis, Gastroesophageal Reflux Disease, Hepatitis Musculoskeltal Medical History: Denies: Arthritis, Gout Skin Medical History: Reports: Other - 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 Denies: Eczema, Psoriasis Psychiatric Medical History: Reports: Depression - occasional Denies: Alcohol Dependency, Bipolar Disorder, Substance Abuse, Tobacco Dependency Traumatic Medical History: Reports: None Hematology: Denies: Anemia, Bleeding Tendencies Infectious Medical History: Reports: Methicillin-Resistant Staph Aureus Past Surgical History Past Surgical History: Reports: Cardiac Catheterization, Orthopedic Surgery - carpel tunnel release Social History Lives with: Spouse/Significant other Smoking Status: Never Smoker Frequency of Alcohol Use: Rare Hx Recreational Drug Use: No Drugs: None, Marijuana Hx Prescription Drug Abuse: No - Advance Directive Resuscitation Status: Full Code Family History Family History: Arthritis, CAD, Other - Heart problems (valvular disease) Parental Family History Reviewed: No Children Family History Reviewed: No Sibling(s) Family History Reviewed.: No Medication/Allergy Home Medications: Aspirin [Aspirin 325 mg Tablet] 325 mg PO DAILY 08/26/16 Clonidine HCl [Catapres 0.1 mg Tablet] 0.1 mg PO Q12 08/26/16 Gabapentin [Neurontin] 1,200 mg PO QHS PRN 08/26/16 Gabapentin [Neurontin] 600 mg PO BID 08/26/16 Glipizide [Glucotrol 10 mg Tablet] 20 mg PO BID 08/26/16 Insulin Glargine,Hum.rec.anlog [Lantus Insulin 100 Unit/mL] 50 unit SUBCUT QHS 08/26/16 Lisinopril [Prinivil 40 mg Tablet] 40 mg PO DAILY 08/26/16 Metformin HCl [Glucophage] 1,000 mg PO BID 08/26/16 Levothyroxine Sodium [Euthyrox] 175 mcg PO Q6AM 07/04/18 Allergies/Adverse Reactions: Penicillins Allergy (Intermediate, Verified 07/03/18 14:22) Rash Review of Systems All systems: reviewed and no additional remarkable complaints except as stated - Left foot swelling Physical Exam Vital Signs: Temp Pulse Resp BP Pulse Ox 98.5 F 69 18 142/78 H 96 07/07/18 09:35 07/07/18 12:00 07/07/18 12:00 07/07/18 12:00 07/07/18 12:00 Intake & Output 07/06/18 07/07/18 07/08/18 06:59 06:59 06:59 Intake Total 1979 3372 Balance 1979 3372 Weight 121.2 kg 115.7 kg General appearance: PRESENT: no acute distress, well-developed, well-nourished Head exam: PRESENT: atraumatic, normocephalic Eye exam: PRESENT: conjunctiva pink, PERRLA. ABSENT: scleral icterus Ear exam: PRESENT: normal external ear exam Mouth exam: PRESENT: moist, tongue midline Neck exam: PRESENT: full ROM. ABSENT: carotid bruit, JVD, lymphadenopathy, thyromegaly Respiratory exam: PRESENT: unlabored Cardiovascular exam: PRESENT: RRR. ABSENT: diastolic murmur, rubs, systolic murmur Pulses: PRESENT: normal dorsalis pedis pul, +2 pedal pulses bilateral Vascular exam: PRESENT: normal capillary refill GI/Abdominal exam: PRESENT: normal bowel sounds, soft. ABSENT: distended, guarding, mass, organolmegaly, rebound, tenderness Rectal exam: PRESENT: deferred Musculoskeletal exam: PRESENT: other - Left foot: Erythema along the anterior aspect of the tibia. Small ulceration on the base of the second toe without purulent drainage no erythema. No evidence of exposed bone. Dependent edema along the dorsum of the foot mild tenderness along the fifth metatarsal base. No evidence of gross deformity. Intact plantar flexion/dorsiflexion. Stocking glove neuropathy Neurological exam: PRESENT: alert, awake, oriented to person, oriented to place, oriented to time, oriented to situation, other - Right-sided weakness. ABSENT: motor sensory deficit Psychiatric exam: PRESENT: appropriate affect, normal mood. ABSENT: homicidal ideation, suicidal ideation Skin exam: PRESENT: dry, intact, rash - Along the anterior aspect of the tibia, warm. ABSENT: cyanosis Results Laboratory Results: 07/06/18 06:40 07/06/18 06:40 07/03/18 22:45 Arm Gram Stain - Final 07/03/18 22:45 Arm Wound Culture - Final Staphylococcus Aureus Group A Beta Streptococcus Impressions: Chest X-Ray 07/03/18 16:56 IMPRESSION: NO ACUTE RADIOGRAPHIC FINDING IN THE CHEST. Foot X-Ray 07/03/18 20:38 IMPRESSION: No erosive findings to suggest active osteomyelitis. Subacute fracture and periosteal reaction of the metatarsal bones as described. Lower Extremity MRI 07/05/18 00:00 IMPRESSION: No osteomyelitis. No soft tissue abscess Status: Image reviewed by me - I have reviewed patient's radiographs and MRI radiographs demonstrate subacute fracture of the fifth metatarsal base however on MRI no definitive increased signal in this region. Assessment & Plan - Diagnosis (1) Fracture of 5th metatarsal Qualifiers: Encounter type: initial encounter Fracture type: closed Fracture alignment: displaced Laterality: left Qualified Code(s): S92.352A - Displaced fracture of fifth metatarsal bone, left foot, initial encounter for closed fracture Is this a current diagnosis for this admission?: Yes Plan: Patient sustained 5th metatarsal base fracture/[place] fracture which have high incidence of nonunion exact chronicity of this is unknown likely at least 3 weeks old. At this point I have recommended a pneumatic walking boot he may be weightbearing as tolerated given patient's diabetes and neuropathy he would be a poor surgical candidate and given the likely chronicity I do not feel strict nonweightbearing is required in this instance. He will follow-up with me in 3 weeks for recheck. We will obtain radiographs at that time. He may remove the pneumatic walking boot while in bed but continue with with ambulation
--- NOTE | 2018-07-07 15:39 | PDOC DISCHARGE SUMMARY ---
General - Admit/Disc Date/PCP Admission Date/Primary Care Provider: 07/03/18 22:11 TEN STEELE MD Discharge Date: 07/07/18 - Discharge Diagnosis (1) Subacute left metatarsal fracture Is this a current diagnosis for this admission?: Yes (2) Cellulitis of left ankle Is this a current diagnosis for this admission?: Yes (3) Diabetic infection of left foot Is this a current diagnosis for this admission?: Yes (4) Hyponatremia Is this a current diagnosis for this admission?: Yes (5) Hypokalemia Is this a current diagnosis for this admission?: Yes (6) Type 2 diabetes mellitus with diabetic neuropathy Is this a current diagnosis for this admission?: Yes (7) History of stroke Is this a current diagnosis for this admission?: Yes (8) Hyperlipidemia Is this a current diagnosis for this admission?: Yes (9) Hypertension Is this a current diagnosis for this admission?: Yes (10) Morbid obesity Is this a current diagnosis for this admission?: Yes - Additional Information Resuscitation Status: Full Code Home Medications: Aspirin [Aspirin 325 mg Tablet] 325 mg PO DAILY 08/26/16 Clonidine HCl [Catapres 0.1 mg Tablet] 0.1 mg PO Q12 08/26/16 Gabapentin [Neurontin] 1,200 mg PO QHS PRN 08/26/16 Gabapentin [Neurontin] 600 mg PO BID 08/26/16 Glipizide [Glucotrol 10 mg Tablet] 20 mg PO BID 08/26/16 Insulin Glargine,Hum.rec.anlog [Lantus Insulin 100 Unit/mL] 50 unit SUBCUT QHS 08/26/16 Lisinopril [Prinivil 40 mg Tablet] 40 mg PO DAILY 08/26/16 Metformin HCl [Glucophage] 1,000 mg PO BID 08/26/16 Levothyroxine Sodium [Euthyrox] 175 mcg PO Q6AM 07/04/18 History of Present Illness History of Present Illness: SARAH MARIN is a 63 year old male who presented to the emergency room with a 5-day history of low-grade fevers and general malaise. He was seen earlier on the day of admission with this complaint at [facility] and he was sent here to be evaluated in the emergency room. He admits that he noted redness and swelling of his left lower extremity that gradually worsening over the last 3 or 4 days. He attributed this to urinary incontinence but his right leg shows no similar signs or symptoms and was also involved in the incontinence. He has diabetes mellitus type 2 complicated by severe peripheral neuropathy resulting in essentially no feeling in his feet and chronic constant burning pain in his lower extremities. He does not due to diabetic foot exams at home and his spouse does not check his feet from time to time for injuries or problems. In the emergency room the patient was discovered to have a diabetic foot ulcer/abscess involving the plantar aspect of the second and third TM joints of the left foot. Patient denies prior similar episodes and has not identified any aggravating or ameliorating factors for his fevers and general malaise. He does admit to having MRSA skin infections on numerous occasions in the past, usually at sites where a small vesicle or pustule erupted and was excoriated with subsequent increased involvement of the dermis. With the diabetic foot ab scess/ulcer accompanied by a leukocytosis and the patient's history of fever it was determined that the patient should be admitted to the hospitalist service with consultation to the surgical service for surgical management of the diabetic foot ulcer. Hospital Course Hospital Course: Is a 61 years old male patient admitted with left leg pain and fever. Morning I seen him resting in bed comfortably his left ankle area is erythematous but there is no any fluctuation. And he has diabetic foot ulcer on the plantar aspect of his the same left foot. Patient has been treated with IV vancomycin until the day of discharge today. Since there is no an abscess Dr. Toro recommended just medical management and wound care. During his stay he developed mild hyponatremia with sodium of 132 and mild hypokalemia with potassium of 3.3 which later corrected. His plain x-ray of left foot also revealed subacute metatarsal fracture for which he was evaluated by orthopedic surgeon and ordered for him pneumatic walking boot. Wound culture from his hand grew MSSA which is pansensitive and patient is going to be discharged with clindamycin for 5 days. Physical Exam Vital Signs: Temp Pulse Resp BP Pulse Ox 98.5 F 69 18 142/78 H 96 07/07/18 09:35 07/07/18 12:00 07/07/18 12:00 07/07/18 12:00 07/07/18 12:00 Intake & Output 07/06/18 07/07/18 07/08/18 06:59 06:59 06:59 Intake Total 19792 250 Balance 1979 3372 250 Weight 121.2 kg 115.7 kg General appearance: PRESENT: no acute distress Head exam: PRESENT: atraumatic Eye exam: PRESENT: conjunctiva pink Mouth exam: PRESENT: moist Neck exam: ABSENT: carotid bruit, JVD, lymphadenopathy, thyromegaly Respiratory exam: PRESENT: clear to auscultation garth. ABSENT: rales, rhonchi, wheezes Cardiovascular exam: PRESENT: RRR. ABSENT: diastolic murmur, rubs, systolic murmur GI/Abdominal exam: PRESENT: normal bowel sounds, soft. ABSENT: distended, guarding, mass, organolmegaly, rebound, tenderness Extremities exam: PRESENT: other - Left foot erythema and swelling has markedly improved Neurological exam: PRESENT: alert, awake, oriented to time, oriented to situation Results Laboratory Results: 07/06/18 06:40 07/06/18 06:40 07/03/18 22:45 Arm Gram Stain - Final 07/03/18 22:45 Arm Wound Culture - Final Staphylococcus Aureus Group A Beta Streptococcus Impressions: Chest X-Ray 07/03/18 16:56 IMPRESSION: NO ACUTE RADIOGRAPHIC FINDING IN THE CHEST. Foot X-Ray 07/03/18 20:38 IMPRESSION: No erosive findings to suggest active osteomyelitis. Subacute fracture and periosteal reaction of the metatarsal bones as described. Lower Extremity MRI 07/05/18 00:00 IMPRESSION: No osteomyelitis. No soft tissue abscess Qualifiers - * PATIENT BEING DISCHARGED WITH ANY OF THE FOLLOWING DIAGNOSIS: No
[2018-07-07 18:16] VITALS: BP 142/78
== END 2018-07-07 18:55 | disposition home or self-care (01) | DRG 638 ==
LOC: ER 14:20 → EH 22:11 → 2N 07-04 08:04
PROVIDERS: ADMIT Emergency Medicine; ATTEND Emergency Medicine
DX: E11.621 Type 2 diabetes mellitus with foot ulcer (principal); L97.421 Non-pressure chronic ulcer of left heel and midfoot limited to breakdown of skin; L03.116 Cellulitis of left lower limb; E87.1 Hypo-osmolality and hyponatremia; S92.352A Displaced fracture of fifth metatarsal bone, left foot, initial encounter for closed fracture; E87.6 Hypokalemia; E11.42 Type 2 diabetes mellitus with diabetic polyneuropathy; E78.00 Pure hypercholesterolemia, unspecified; I10 Essential (primary) hypertension; E03.9 Hypothyroidism, unspecified; E66.01 Morbid (severe) obesity due to excess calories; Z86.73 Personal history of transient ischemic attack (TIA), and cerebral infarction without residual deficits; Z79.84 Long term (current) use of oral hypoglycemic drugs; Z79.82 Long term (current) use of aspirin; Z79.4 Long term (current) use of insulin; Z79.899 Other long term (current) drug therapy
CPT/HCPCS: 36415; 71046; 80048; 80053; 80061; 80202; 82962; 83036; 83605; 83735; 84439; 84443; 84481; 85025; 85652; 86140; 87040; 87070; 87077; 87186; 87205; 99285; J1644; J1815; J2270; J3370; J3490; J7060

== ENCOUNTER 2018-10-09 12:03 | Inpatient (IN) | payer OTHER, MEDICARE ==
--- NOTE | 2018-10-09 13:50 | ER Document Report ---
ED Medical Screen (RME) - General Chief Complaint: Weakness Stated Complaint: RIGHT LEG PAIN Time Seen by Provider: 10/09/18 13:37 Primary Care Provider: TEN STEELE MD [Primary Care Provider] - Follow up as needed Notes: Patient is a 63-year-old male with history of CVA in 2013 that presents to the emergency department for chief complaint of right leg weakness. Patient states that this past Tuesday or he states he went to stand up in his right leg was not working, is not gotten any better since then so he decided come the emergency department [facility] ROS: Other than noted above, the 12 point review of systems was reviewed with the patient and were negative, all pertinent findings are included in the HPI. PHYSICAL EXAMINATION: Vital signs reviewed. GENERAL: Elderly male, no acute distress HEAD: Atraumatic, normocephalic. EYES: Pupils equal round extraocular movements intact, conjunctiva are normal. ENT: Nares patent NECK: Normal range of motion CV: Heart regular rate and rhythm LUNGS: No respiratory distress Musculoskeletal: Normal range of motion NEUROLOGICAL: Normal speech, right lower extremity weakness compared to the left, and decreased sensation to light touch on the right compared to the left. PSYCH: Normal mood, normal affect. MDM: Patient seen and examined for rapid initial assessment. Vital signs reviewed. A comprehensive ED assessment and evaluation of the patient, analysis of test results and completion of the medical decision making process will be conducted by additional ED providers. *Note is created using voice recognition software and may contain spelling, syntax or grammatical errors. TRAVEL OUTSIDE OF THE [place] IN LAST 30 DAYS: No - Related Data Allergies/Adverse Reactions: Penicillins Allergy (Intermediate, Verified 07/03/18 14:22) Rash Past Medical History - Social History Frequency of alcohol use: Rare - Past Medical History Cardiac Medical History: Reports: Hx Hypercholesterolemia, Hx Hypertension Denies: Hx Congestive Heart Failure, Hx Heart Attack Pulmonary Medical History: Reports: Hx Pneumonia Denies: Hx Asthma, Hx Bronchitis, Hx COPD, Hx Tuberculosis Neurological Medical History: Reports: Hx Cerebrovascular Accident - Left-sided brainstem infarct to 08/20/2013. Denies: Hx Seizures Endocrine Medical History: Reports: Hx Diabetes Mellitus Type 2, Hx Hypothyroidism Renal/ Medical History: Reports: Hx Kidney Stones. Denies: Hx Benign Prostatic Hyperplasia, Hx End Stage Renal Disease, Hx Peritoneal Dialysis GI Medical History: Denies: Hx Cirrhosis, Hx Gastroesophageal Reflux Disease, Hx Hepatitis, Hx Ulcer Musculoskeltal Medical History: Denies Hx Arthritis, Denies Hx Gout, Denies Hx Multiple Sclerosis Skin Medical History: Denies Hx Eczema, Denies Hx Psoriasis Psychiatric Medical History: Reports: Hx Depression - occasional Denies: Hx Bipolar Disorder, Hx Schizophrenia Infectious Medical History: Reports: Hx MRSA. Denies: Hx Hepatitis Past Surgical History: Reports: Hx Cardiac Catheterization, Hx Orthopedic Surgery - carpel tunnel release - Immunizations Hx Diphtheria, Pertussis, Tetanus Vaccination: No Physical Exam - Vital signs Vitals: Temp Pulse Resp BP Pulse Ox 98.4 F 85 18 140/79 H 96 10/09/18 12:10/09/18 12:10/09/18 12:10/09/18 12:09 10/09/18 12:09 Course - Vital Signs Vital signs: Temp Pulse Resp BP Pulse Ox 98.4 F 85 18 140/79 H 96 10/09/18 12:09 10/09/18 12:09 10/09/18 12:09 10/09/18 12:09 10/09/18 12:09 Doctor's Discharge - Discharge Referrals: TEN STEELE MD [Primary Care Provider] - Follow up as needed
[2018-10-09 15:25] LABS: APPEARANCE,URINE CLEAR; BILIRUBIN,URINE NEGATIVE (NEGATIVE); COLOR,URINE YELLOW; GLUCOSE, URINE >=500 mg/dL (NEGATIVE); KETONES,URINE TRACE mg/dL (NEGATIVE); LEUKOCYTE ESTERASE,URINE NEGATIVE (NEGATIVE); NITRITE,URINE NEGATIVE (NEGATIVE); PROTEIN,URINE NEGATIVE (NEGATIVE); URINE SPECIFIC GRAVITY 1.027
--- NOTE | 2018-10-09 15:31 | ER Document Report ---
ED General - General Chief Complaint: Weakness Stated Complaint: RIGHT LEG PAIN Time Seen by Provider: 10/09/18 13:37 Mode of Arrival: Ambulatory Information source: [facility] Records Notes: 63-year-old male with hypertension, hyperlipidemia, diabetes, hypothyroidism, previous history of left brainstem CVA in 2013 presents with complaint of right lower extremity weakness that started 6 days prior to arrival. Patient states that 6 days ago he attempted to get up from his chair when his right leg "gave out on me". Patient denies falling but states that weakness has progressed. Patient does state that he had residual right-sided weakness from his previous stroke but believes this is worse. He denies any recent illness, headache, blurred vision, nausea, vomiting, chest pain, shortness of breath, abdominal pain. Patient was recently hospitalized for right lower extremity cellulitis in [place]. TRAVEL OUTSIDE OF THE [place] IN LAST 30 DAYS: No - HPI Onset: Last week Onset/Duration: Gradual, Persistent Quality of pain: No pain Severity: None Associated symptoms: Weakness. denies: Chest pain, Nonproductive cough, Productive cough, Fever, Headache, Leg swelling, Nausea, Vomiting, Shortness of breath Exacerbated by: Denies Relieved by: Denies Similar symptoms previously: Yes Recently seen / treated by doctor: Yes - Related Data Allergies/Adverse Reactions: Penicillins Allergy (Intermediate, Verified 10/09/18 15:45) Rash ampicillin Allergy (Verified 10/09/18 15:45) Past Medical History - General Information source: Patient, [facility] Records - Social History Smoking Status: Never Smoker Frequency of alcohol use: Rare Drug Abuse: None Lives with: Alone Family History: Arthritis, CAD, Other - Heart problems (valvular disease) Patient has suicidal ideation: No Patient has homicidal ideation: No - Past Medical History Cardiac Medical History: Reports: Hx Hypercholesterolemia, Hx Hypertension Denies: Hx Congestive Heart Failure, Hx Heart Attack Pulmonary Medical History: Reports: Hx Pneumonia Denies: Hx Asthma, Hx Bronchitis, Hx COPD, Hx Tuberculosis Neurological Medical History: Reports: Hx Cerebrovascular Accident - Left-sided brainstem infarct to 08/20/2013. Denies: Hx Seizures Endocrine Medical History: Reports: Hx Diabetes Mellitus Type 2, Hx Hypothyroidism Renal/ Medical History: Reports: Hx Kidney Stones. Denies: Hx Benign Prostatic Hyperplasia, Hx End Stage Renal Disease, Hx Peritoneal Dialysis GI Medical History: Denies: Hx Cirrhosis, Hx Gastroesophageal Reflux Disease, Hx Hepatitis, Hx Ulcer Musculoskeletal Medical History: Denies Hx Arthritis, Denies Hx Gout, Denies Hx Multiple Sclerosis Skin Medical History: Denies Hx Eczema, Denies Hx Psoriasis Psychiatric Medical History: Reports: Hx Depression - occasional Denies: Hx Bipolar Disorder, Hx Schizophrenia Infectious Medical History: Reports: Hx MRSA. Denies: Hx Hepatitis Past Surgical History: Reports: Hx Cardiac Catheterization, Hx Orthopedic Surgery - carpel tunnel release - Immunizations Hx Diphtheria, Pertussis, Tetanus Vaccination: No Review of Systems - Review of Systems Notes: REVIEW OF SYSTEMS: CONSTITUTIONAL : Denies fever, chills, or sweats. Denies recent illness. Denies weight loss, recent hospitalizations. EENT: Denies visual changes, eye pain. Denies sore throat, oral lesions, difficulty swallowing. CARDIOVASCULAR: Denies chest pain. Denies palpitations. Denies lower extremity edema. RESPIRATORY: Denies cough. Denies shortness of breath, wheezing. GASTROINTESTINAL: Denies abdominal pain or distention. Denies nausea, vomiting, or diarrhea. Denies blood in vomitus, stools, or per rectum. Denies black, tarry stools. Denies constipation. GENITOURINARY: Denies difficulty urinating, painful urination, frequency, blood in urine, testicular pain or penile discharge. MUSCULOSKELETAL: Denies back or neck pain or stiffness. Denies joint pain or swelling. SKIN: Denies rash, lesions or sores. HEMATOLOGIC : Denies easy bruising or bleeding. LYMPHATIC: Denies swollen glands. NEUROLOGICAL: Denies confusion or altered mental status. Denies loss of consciousness. Denies dizziness or lightheadedness. Denies headache. Denies paralysis. Denies slurred speech. Denies sensory loss, numbness, or tingling. Denies seizures. PSYCHIATRIC: Denies anxiety or stress. Denies depression, suicidal ideation, or Physical Exam - Vital signs Vitals: Temp Pulse Resp BP Pulse Ox 98.4 F 85 18 140/79 H 96 10/09/18 12:09 10/09/18 12:09 10/09/18 12:09 10/09/18 12:09 10/09/18 12:09 - Notes Notes: PHYSICAL EXAMINATION: GENERAL: Well-appearing, well-nourished and in no acute distress. HEAD: Atraumatic, normocephalic. EYES: Pupils equal round and reactive to light, extraocular movements intact, sclera anicteric, conjunctiva are normal. ENT: Nares patent, oropharynx clear without exudates. Moist mucous membranes. NECK: Normal range of motion, supple without lymphadenopathy LUNGS: Breath sounds clear to auscultation bilaterally and equal. No wheezes rales or rhonchi. HEART: Regular rate and rhythm without murmurs ABDOMEN: Soft, nontender, nondistended abdomen. No guarding, no rebound. No masses appreciated. Musculoskeletal: Normal range of motion, no pitting or edema. No cyanosis. NEUROLOGICAL: Neuro exam Mental status; alert and oriented x3. Cranial nerves II through XII intact. Sensation intact to sharp/dull differentiation in all extremities. Motor; normal tone. No abnormal movements appreciated. No pronator drift. Strength tested and 5/5 in bilateral wrist flexion/extension, elbow flexion/extension, shoulder abduction, straight leg raise, knee flexion/extension, ankle dorsiflexion/plantar flexion. Coordination; no ataxia. Finger to nose and heel to bhatti testing intact bilaterally. Reflexes; brachial radialis, biceps, and patellar reflexes within normal limits and symmetric bilaterally. Babinski with downgoing toes bilaterally. Left lower extremity drift is present. NIH 1 PSYCH: Normal mood, normal affect. SKIN: Warm, Dry, normal turgor, no rashes or lesions noted. Course - Re-evaluation Re-evalutation: 10/09/18 21:36 Laboratory 10/09/18 10/09/18 10/09/18 14:45 15:15 15:15 WBC 6.8 RBC 4.97 Hgb 14.0 Hct 40.6 MCV 82 MCH 28.3 MCHC 34.6 RDW 14.4 H Plt Count 279 Seg Neutrophils % 60.5 Lymphocytes % 30.5 Monocytes % 6.8 Eosinophils % 1.6 Basophils % 0.6 Absolute Neutrophils 4.1 Absolute Lymphocytes 2.1 Absolute Monocytes 0.5 Absolute Eosinophils 0.1 Absolute Basophils 0.0 PT INR APTT Sodium 135.9 L Potassium 4.4 Chloride 100 Carbon Dioxide 23 Anion Gap 13 BUN 16 Creatinine 0.96 Est GFR ( Amer) > 60 Est GFR (Non-Af Amer) > 60 Glucose 260 H Calcium 10.0 Total Bilirubin 0.5 Direct Bilirubin 0.4 Neonat Total Bilirubin Not Reportable Neonat Direct Bilirubin Not Reportable Neonat Indirect Bili Not Reportable AST 17 ALT 18 L Alkaline Phosphatase 117 Troponin I Total Protein 7.6 Albumin 4.0 Triglycerides Cholesterol LDL Cholesterol Direct VLDL Cholesterol HDL Cholesterol Lipase 153.1 Urine Color YELLOW Urine Appearance CLEAR Urine pH 5.0 Ur Specific [place] 1.027 Urine Protein NEGATIVE Urine Glucose (UA) >=500 H Urine Ketones TRACE H Urine Blood NEGATIVE Urine Nitrite NEGATIVE Urine Bilirubin NEGATIVE Urine Urobilinogen 2.0 H Ur Leukocyte Esterase NEGATIVE Urine WBC (Auto) 0 Urine RBC (Auto) 1 Urine Mucus (Auto) RARE Urine Ascorbic Acid NEGATIVE 10/09/18 10/09/18 10/09/18 15:15 15:15 15:15 WBC RBC Hgb Hct MCV MCH MCHC RDW Plt Count Seg Neutrophils % Lymphocytes % Monocytes % Eosinophils % Basophils % Absolute Neutrophils Absolute Lymphocytes Absolute Monocytes Absolute Eosinophils Absolute Basophils PT 13.7 INR 1.00 APTT 40.4 H Sodium Potassium Chloride Carbon Dioxide Anion Gap BUN Creatinine Est GFR ( Amer) Est GFR (Non-Af Amer) Glucose Calcium Total Bilirubin Direct Bilirubin Neonat Total Bilirubin Neonat Direct Bilirubin Neonat Indirect Bili AST ALT Alkaline Phosphatase Troponin I < 0.012 Total Protein Albumin Triglycerides 155 H Cholesterol 195.66 LDL Cholesterol Direct 128 H VLDL Cholesterol 31.0 HDL Cholesterol 43 Lipase Urine Color Urine Appearance Urine pH Ur Specific [place] Urine Protein Urine Glucose (UA) Urine Ketones Urine Blood Urine Nitrite Urine Bilirubin Urine Urobilinogen Ur Leukocyte Esterase Urine WBC (Auto) Urine RBC (Auto) Urine Mucus (Auto) Urine Ascorbic Acid Chest X-Ray 10/09/18 13:50 IMPRESSION: NO ACUTE RADIOGRAPHIC FINDING IN THE CHEST. Head CT 10/09/18 13:51 IMPRESSION: There is a hypodensity of the posterior left mendez radiata new from prior examination dated 2013, consistent with age-indeterminate infarction and an anatomic correlate for right leg weakness. MRI may be used to further evaluate for acute diffusion restricting infarction. EVIDENCE OF ACUTE STROKE: NO. Head MRI 10/09/18 15:26 IMPRESSION: There is an acute/subacute infarction on the left as described. EVIDENCE OF ACUTE STROKE: YES. 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 Patient does have a previous history of CVA in 2014. Vital signs reviewed and within normal limits upon arrival. NIH was performed and 1 for the left lower extremity drift. CT of the head was performed and did show a hypodensity in the left mendez radiata which is new from prior exam. 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 Patient has been accepted by the hospitalist for admission. 10/09/18 21:56 - Vital Signs Vital signs: Temp Pulse Resp BP Pulse Ox 98.4 F 82 24 H 139/86 H 95 10/09/18 12:09 10/09/18 20:21 10/09/18 20:21 10/09/18 20:21 10/09/18 20:21 - Laboratory Result Diagrams: 10/09/18 15:15 10/09/18 15:15 Laboratory results interpreted by me: 10/09/18 10/09/18 10/09/18 14:45 15:15 15:15 RDW 14.4 H APTT Sodium 135.9 L Glucose 260 H ALT 18 L Triglycerides LDL Cholesterol Direct Urine Glucose (UA) >=500 H Urine Ketones TRACE H Urine Urobilinogen 2.0 H 10/09/18 10/09/18 15:15 15:15 RDW APTT 40.4 H Sodium Glucose ALT Triglycerides 155 H LDL Cholesterol Direct 128 H Urine Glucose (UA) Urine Ketones Urine Urobilinogen - Diagnostic Test Radiology reviewed: Image reviewed, Reports reviewed - EKG Interpretation by Mt EKG shows normal: Sinus rhythm Rate: Normal Rhythm: NSR When compared to previous EKG there are: No significant change Discharge - Discharge Clinical Impression: Right leg weakness, History of stroke Stroke Qualifiers: CVA mechanism: unspecified Qualified Code(s): I63.9 - Cerebral infarction, unspecified Type 2 diabetes mellitus with diabetic neuropathy Qualifiers: Diabetes mellitus mcfp insulin use: unspecified termite treater insulin use status Qualified Code(s): E11.40 - Type 2 diabetes mellitus with diabetic neuropathy, unspecified Hyperglycemia due to type 2 diabetes mellitus Qualifiers: Diabetes mellitus termite treater insulin use: unspecified mcfp insulin use status Qualified Code(s): E11.65 - Type 2 diabetes mellitus with hyperglycemia Condition: Good Disposition: ADMITTED INPATIENT Admitting Provider: Hospitalist Unit Admitted: [facility]
--- NOTE | 2018-10-09 15:37 | RADIOLOGY REPORT (SQ) ---
EXAM DESCRIPTION: CHEST SINGLE VIEW COMPLETED DATE/TIME: 10/09/2018 3:31 pm REASON FOR STUDY: right leg weakness COMPARISON: 07/03/2018. EXAM PARAMETERS: NUMBER OF VIEWS: One view. TECHNIQUE: Single frontal radiographic view of the chest acquired. RADIATION DOSE: NA LIMITATIONS: None. FINDINGS: LUNGS AND PLEURA: No opacities, masses or pneumothorax. No pleural effusion. MEDIASTINUM AND HILAR STRUCTURES: No masses. Contour normal. HEART AND VASCULAR STRUCTURES: Heart normal in size. Normal vasculature. BONES: No acute findings. HARDWARE: None in the chest. OTHER: No other significant finding. IMPRESSION: NO ACUTE RADIOGRAPHIC FINDING IN THE CHEST. TECHNICAL DOCUMENTATION: JOB ID: [id number] [employer]- All Rights Reserved Reading location - IP/workstation name: [email or web address]
--- NOTE | 2018-10-09 15:38 | RADIOLOGY REPORT (SQ) ---
EXAM DESCRIPTION: CT HEAD WITHOUT COMPLETED DATE/TIME: 10/09/2018 3:29 pm REASON FOR STUDY: right leg weakness COMPARISON: 09/10/2013 TECHNIQUE: Axial images acquired through the brain without intravenous contrast. Images reviewed wi th bone, brain and subdural windows. Additional sagittal and coronal reconstructions were generated. Images stored on PACS. All CT scanners at this facility use dose modulation, iterative reconstruction, and/or weight based d osing when appropriate to reduce radiation dose to as low as reasonably achievable (ALARA). [facility]: Dose Right [facility]: CareDose [facility]: Dose Right [facility]: Teradose 4D [facility]: Smart [employer] RADIATION DOSE: CT Rad equipment meets quality standard of care and radiation dose reduction techniq ues were employed. CTDIvol: 53.2 mGy. DLP: 1097 mGy-cm. mGy. LIMITATIONS: None. FINDINGS: VENTRICLES: Normal size and contour. Incidental note of cavum septum pellucidum variant. CEREBRUM: No masses. No hemorrhage. No midline shift. No evidence for acute infarction. There is a new hypodensity of the posterior left mendez radiata (series 2, image 21). CEREBELLUM: No masses. No hemorrhage. No alteration of density. No evidence for acute infarction. EXTRAAXIAL SPACES: No fluid collections. No masses. ORBITS AND GLOBE: No intra- or extraconal masses. Normal contour of globe without masses. CALVARIUM: No fracture. PARANASAL SINUSES: No fluid or mucosal thickening. SOFT TISSUES: No mass or hematoma. OTHER: No other significant finding. IMPRESSION: There is a hypodensity of the posterior left mendez radiata new from prior examination d ated 2013, consistent with age-indeterminate infarction and an anatomic correlate for right leg weakn ess. MRI may be used to further evaluate for acute diffusion restricting infarction. EVIDENCE OF ACUTE STROKE: NO. COMMENT: Quality ID # [id number]: Final reports with documentation of one or more dose reduction techniques (e.g., Automated exposure control, adjustment of the mA and/or kV according to patient size, use of iterative reconstruction technique) TECHNICAL DOCUMENTATION: JOB ID: [id number] [employer]- All Rights Reserved Reading location - IP/workstation name: [email or web address]
[2018-10-09 15:56] LABS: ABSOLUTE EOSINOPHILS # (AUTO) 0.1 10^3/uL (0.0-0.6); ABSOLUTE LYMPHOCYTES (AUTO) 2.1 10^3/uL (0.5-4.7); ABSOLUTE MONOCYTES (AUTO) 0.5 10^3/uL (0.1-1.4); ABSOLUTE NEUT (AUTO) 4.1 10^3/uL (1.7-8.2); BASOPHILS % (AUTO) 0.6 % (0-2); EOSINOPHILS % (AUTO) 1.6 % (0-6); HEMATOCRIT 40.6 % (37.9-51.0); LYMPHOCYTES % (AUTO) 30.5 % (13-45); MEAN CORPUSCULAR HEMOGLOBIN 28.3 pg (27.0-33.4); MEAN CORPUSCULAR HGB CONC 34.6 g/dL (32.0-36.0); MEAN CORPUSCULAR VOLUME 82 fl (80-97); MONOCYTES % (AUTO) 6.8 % (3-13); PLATELET COUNT 279 10^3/uL (150-450); RED BLOOD COUNT 4.97 10^6/uL (4.35-5.55); RED CELL DISTRIBUTION WIDTH 14.4 % (11.5-14.0); SEGMENTED NEUTROPHILS % (AUTO) 60.5 % (42-78); TOTAL CELLS COUNTED % (AUTO) 100 %; WHITE BLOOD COUNT 6.8 10^3/uL (4.0-10.5)
[2018-10-09 16:15] LABS: ALANINE AMINOTRANSFERASE 18 U/L (21-72); ALKALINE PHOSPHATASE 117 U/L (38-126); ANION GAP 13 (5-19); ASPARTATE AMINO TRANSFERASE 17 U/L (17-59); BILIRUBIN,DIRECT 0.4 mg/dL (0.0-0.4); BILIRUBIN,TOTAL 0.5 mg/dL (0.2-1.3); BLOOD UREA NITROGEN 16 mg/dL (7-20); CARBON DIOXIDE 23 mmol/L (22-30); CHLORIDE 100 mmol/L (98-107); GLUCOSE 260 mg/dL (75-110); LIPASE 153.1 U/L (23-300); POTASSIUM 4.4 mmol/L (3.6-5.0); SODIUM 135.9 mmol/L (137-145); TOTAL PROTEIN 7.6 g/dL (6.3-8.2)
[2018-10-09] MEDS ORDERED: ASPIRIN 81 MG TABLET, CHEWABLE PO ONE (17:16)
--- NOTE | 2018-10-09 17:16 | RADIOLOGY REPORT (SQ) ---
EXAM DESCRIPTION: MRI HEAD WITHOUT COMPLETED DATE/TIME: 10/09/2018 5:06 pm REASON FOR STUDY: right sided weakness COMPARISON: MR 09/10/2013 CT 10/09/2018 TECHNIQUE: Multiplanar imaging includes non-contrasted T1, T2, FLAIR, and diffusion with ADC map seq uences. Images stored on PACS. LIMITATIONS: None. FINDINGS: ANATOMY: No anomalies. Normal vascular flow voids. Pituitary fossa normal. CSF SPACES: Normal in size and contour. No hemorrhage. CEREBRUM: Sulci and gyri normal in size and contour. Scattered small areas of increased white matter signal on FLAIR imaging. No evidence of hemorrhage, mass, or extraaxial fluid collection. POSTERIOR FOSSA: No signal alteration. No hemorrhage. No edema, masses or mass effect. Internal nicol tory canals, cerebello-pontine angles, mastoids normal. DIFFUSION IMAGING: There is an area of abnormal diffusion extending from the left periventricular reg ion to the basal ganglia. ORBITS: No masses. Globes normal. PARANASAL SINUSES: No fluid levels. Mucosa normal. OTHER: No other significant finding. IMPRESSION: There is an acute/subacute infarction on the left as described. EVIDENCE OF ACUTE STROKE: YES. 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
[2018-10-09] MEDS ORDERED: ATORVASTATIN CALCIUM 40 MG TABLET PO ONE (18:44)
--- NOTE | 2018-10-09 18:45 | PDOC H&P ---
History of Present Illness Admission Date/PCP: 10/09/18 18:03 JESUS BAIG NP Patient complains of: Right-sided weakness History of Present Illness: SARAH MARIN is a 63 year old male history of diabetes, hypertension, prior CVA x2, now presents with complaint of right-sided weakness. He first noticed this 6 days ago, while he was away in [place], [place]. His last stroke had affected the right side but his strength almost completely returned. He now developed worsening weakness this time. At first, he thought he sat wrong. When after a few days his weakness was not getting better, his came to get him and drive him back to [place], as he did not want to go to a hospital far from home. He denies dysarthria, no trouble swallowing. The weakness is worse on his right leg. Denies chest pain or shortness of breath, no palpitations. No lower extremity swelling. Evaluation in the ED significant for head CT revealing CVA. Head MRI also confirmed a CVA as an imaging below. Patient was treated with aspirin 324 mg and referred for admission. Of note is that patient is taking antibiotics for right foot cellulitis, which he states is markedly improved. He does not recall the name of the antibiotics and will have his bring it. Past Medical History Cardiac Medical History: Reports: Hyperlipidema, Hypertension Denies: Congestive Heart Failure, Myocardial Infarction Pulmonary Medical History: Reports: Pneumonia Denies: Asthma, Bronchitis, Chronic Obstructive Pulmonary Disease (COPD), Tuberculosis Neurological Medical History: Denies: Seizures Endocrine Medical History: Reports: Diabetes Mellitus Type 2, Hypothyroidism Renal/ Medical History: Denies: End Stage Renal Disease GI Medical History: Denies: Cirrhosis, Gastroesophageal Reflux Disease, Hepatitis Musculoskeltal Medical History: Denies: Arthritis, Gout Skin Medical History: Denies: Eczema, Psoriasis Psychiatric Medical History: Reports: Depression - occasional Denies: Bipolar Disorder Hematology: Denies: Anemia, Bleeding Tendencies Infectious Medical History: Reports: Methicillin-Resistant Staph Aureus Past Surgical History Past Surgical History: Reports: Cardiac Catheterization, Orthopedic Surgery - carpel tunnel release Social History Information Source: Patient Lives with: Alone Smoking Status: Never Smoker Frequency of Alcohol Use: Rare Hx Recreational Drug Use: No Drugs: None, Marijuana Hx Prescription Drug Abuse: No - Advance Directive Resuscitation Status: Full Code Family History Family History: Arthritis, CAD, Other - Alzheimer's dementia Parental Family History Reviewed: Yes Children Family History Reviewed: Yes Sibling(s) Family History Reviewed.: Yes Medication/Allergy Allergies/Adverse Reactions: Penicillins Allergy (Intermediate, Verified 10/09/18 15:45) Rash ampicillin Allergy (Verified 10/09/18 15:45) Review of Systems Review of Systems: CONSTITUTIONAL : Fever, chills -- No; unexpalined fatigue -- No EENT: Denies eye, ear, throat, or mouth pain or symptoms. Denies nasal or sinus congestion or discharge. Denies throat, tongue, or mouth swelling or difficulty swallowing. CARDIOVASCULAR: Denies chest pain. No racing heart RESPIRATORY: Denies cough, no shortness of breath, difficulty breathing. GASTROINTESTINAL: Denies abdominal pain or distention. Denies nausea, vomiting, or diarrhea. No rectal bleeding. GENITOURINARY: Urinary symptoms -- no. MUSCULOSKELETAL: No acute weakness SKIN: Denies rash, lesions or sores. HEMATOLOGIC : Denies easy bruising or bleeding. LYMPHATIC: Denies swollen, enlarged glands. NEUROLOGICAL: As in HPI. PSYCHIATRIC: Changes anxiety or stress, depression, suicidal ideation, or homicidal ideation -- No ALL OTHER SYSTEMS REVIEWED AND NEGATIVE. Physical Exam Vital Signs: Temp Pulse Resp BP Pulse Ox 98.4 F 77 18 147/84 H 98 10/09/18 12:09 10/09/18 17:26 10/09/18 17:26 10/09/18 17:26 10/09/18 17:26 Intake & Output 10/08/18 10/09/18 10/10/18 06:59 06:59 06:59 Weight 122.7 kg GENERAL: Well-developed, well-nourished male, no acute distress HEENT: Normocephalic/atraumatic, no facial droop, no discharge. NECK supple, no JVD, no lymphadenopathy CARDIOVASCULAR: RRR, normal S1-S2, no significant murmur LUNGS: CTA bilaterally ABDOMEN: Soft, NT, NL bowel sounds EXTREMITIES: No edema, clubbing, cyanosis; mild redness tip of right middle toe NEUROLOGICAL: Alert, oriented x 3, 5/5 strength left upper and lower extremity, 2-3/5 strength right lower extremity, 5 Results Laboratory Results: 10/09/18 15:15 10/09/18 15:15 10/09/18 10/09/1819 14:45 15:15 15:15 WBC 6.8 RBC 4.97 Hgb 14.0 Hct 40.6 MCV 82 MCH 28.3 MCHC 34.6 RDW 14.4 H Plt Count 279 Seg Neutrophils % 60.5 Lymphocytes % 30.5 Monocytes % 6.8 Eosinophils % 1.6 Basophils % 0.6 Absolute Neutrophils 4.1 Absolute Lymphocytes 2.1 Absolute Monocytes 0.5 Absolute Eosinophils 0.1 Absolute Basophils 0.0 Sodium 135.9 L Potassium 4.4 Chloride 100 Carbon Dioxide 23 Anion Gap 13 BUN 16 Creatinine 0.96 Est GFR ( Amer) > 60 Est GFR (Non-Af Amer) > 60 Glucose 260 H Calcium 10.0 Total Bilirubin 0.5 AST 17 ALT 18 L Alkaline Phosphatase 117 Total Protein 7.6 Albumin 4.0 Lipase 153.1 Urine Color YELLOW Urine Appearance CLEAR Urine pH 5.0 Ur Specific [place] 1.027 Urine Protein NEGATIVE Urine Glucose (UA) >=500 H Urine Ketones TRACE H Urine Blood NEGATIVE Urine Nitrite NEGATIVE Ur Leukocyte Esterase NEGATIVE Urine WBC (Auto) 0 Urine RBC (Auto) 1 10/09/18 15:15 Troponin I < 0.012 Impressions: Chest X-Ray 10/09/18 13:50 IMPRESSION: NO ACUTE RADIOGRAPHIC FINDING IN THE CHEST. Head CT 10/09/18 13:51 IMPRESSION: There is a hypodensity of the posterior left mendez radiata new from prior examination dated 2013, consistent with age-indeterminate infarction and an anatomic correlate for right leg weakness. MRI may be used to further ev aluate for acute diffusion restricting infarction. EVIDENCE OF ACUTE STROKE: NO. Head MRI 10/09/18 15:26 IMPRESSION: There is an acute/subacute infarction on the left as described. EVIDENCE OF ACUTE STROKE: YES. 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 He is on aspirin 325 mg at home and he con tinues to have strokes. Will change to Plavix 75 mg daily and decrease aspirin 81 mg daily. Will obtain carotid Dopplers and echocardiogram to workup possible etiologies. Patient's medications not available at this time. Please order his appropriate medications when reconciled. Also find out which antibiotics patient is taking and order to complete course. He reports taking a dose this morning. Currently his foot looks good. We will also treat with high-dose statin for now with Lipitor 40 mg daily. Can change to his home lipids when available if appropriate. PT/OT consult
[2018-10-09 20:05] LABS: PROTHROMBIN TIME 13.7 SEC (11.4-15.4)
[2018-10-09 20:07] LABS: PARTIAL THROMBOPLASTIN TIME 40.4 SEC (23.5-35.8)
[2018-10-09 20:18] LABS: CHOLESTEROL 195.66 mg/dL (0-200); TRIGLYCERIDES 155 mg/dL (<150)
[2018-10-09 20:29] LABS: DIRECT LDL 128 mg/dL (<100)
--- NOTE | 2018-10-09 21:22 | EKG REPORT ---
SEVERITY:- BORDERLINE ECG - SINUS RHYTHM BORDERLINE T ABNORMALITIES, INFERIOR LEADS : Confirmed by: Sybil Ordaz MD 09-Oct-2018 21:22:17
[2018-10-09] MEDS ORDERED: ASPIRIN 325 MG TABLET PO PRN (23:04)
[2018-10-09] MEDS ORDERED: INSULIN GLARGINE,HUM.REC.ANLOG 1,000 UNIT/10 ML VIAL (PYX) SUBCUT PRN (23:38)
[2018-10-09] MEDS ORDERED: GABAPENTIN 400 MG CAPSULE PO ONE (23:59)
[2018-10-09] MEDS ORDERED: INSULIN GLARGINE,HUM.REC.ANLOG 1,000 UNIT/10 ML VIAL SUBCUT ONE (23:59)
[2018-10-10] MEDS: MELATONIN 3 MG TABLET PO PRN ×2 (00:38→22:07)
[2018-10-10] MEDS ORDERED: CLONIDINE HCL 0.1 MG TABLET PO ONE (00:45)
[2018-10-10] MEDS ORDERED: ATORVASTATIN CALCIUM 80 MG TABLET PO ONE (00:45)
[2018-10-10] MEDS: LEVOTHYROXINE SODIUM 0.15 MG TABLET PO SCH (05:33)
[2018-10-10 06:26] LABS: ABSOLUTE EOSINOPHILS # (AUTO) 0.1 10^3/uL (0.0-0.6); ABSOLUTE LYMPHOCYTES (AUTO) 1.7 10^3/uL (0.5-4.7); ABSOLUTE MONOCYTES (AUTO) 0.5 10^3/uL (0.1-1.4); ABSOLUTE NEUT (AUTO) 3.3 10^3/uL (1.7-8.2); BASOPHILS % (AUTO) 0.7 % (0-2); EOSINOPHILS % (AUTO) 2.6 % (0-6); HEMATOCRIT 38.5 % (37.9-51.0); HEMOGLOBIN 13.4 g/dL (13.5-17.0); LYMPHOCYTES % (AUTO) 29.7 % (13-45); MEAN CORPUSCULAR HEMOGLOBIN 28.2 pg (27.0-33.4); MEAN CORPUSCULAR HGB CONC 34.9 g/dL (32.0-36.0); MEAN CORPUSCULAR VOLUME 81 fl (80-97); MONOCYTES % (AUTO) 9.3 % (3-13); PLATELET COUNT 257 10^3/uL (150-450); RED BLOOD COUNT 4.75 10^6/uL (4.35-5.55); RED CELL DISTRIBUTION WIDTH 14.1 % (11.5-14.0); SEGMENTED NEUTROPHILS % (AUTO) 57.7 % (42-78); TOTAL CELLS COUNTED % (AUTO) 100 %; WHITE BLOOD COUNT 5.7 10^3/uL (4.0-10.5)
[2018-10-10] MEDS ORDERED: GLUCAGON,HUMAN RECOMB 1 MG INJ IM PRN (10:26)
[2018-10-10] MEDS ORDERED: DEXTROSE 40% GEL 15 GM TUBE PO PRN ×2 (10:26)
[2018-10-10] MEDS ORDERED: DEXTROSE 50%-WATER 25 GM/50 ML DISP.SYRIN IV PRN ×2 (10:26)
[2018-10-10] MEDS: LISINOPRIL 10 MG TABLET PO SCH (10:43)
[2018-10-10] MEDS: CLOPIDOGREL BISULFATE 75 MG TABLET PO SCH (10:44)
[2018-10-10] MEDS: GABAPENTIN 300 MG CAPSULE PO SCH ×2 (10:44→12:17)
[2018-10-10] MEDS: CLONIDINE HCL 0.1 MG TABLET PO SCH ×2 (10:44→17:15)
[2018-10-10] MEDS: ASPIRIN 81 MG TABLET, ENT COATED PO SCH (10:44)
[2018-10-10] MEDS: ENOXAPARIN SODIUM INJ 40 MG/0.4 ML DISP.SYRIN SUBCUT SCH (10:57)
[2018-10-10] MEDS: INSULIN LISPRO 100 UNIT/ML 3 ML VIAL SUBCUT SCH ×3 (12:17→21:58)
--- NOTE | 2018-10-10 12:33 | RADIOLOGY REPORT (SQ) ---
EXAM DESCRIPTION: FOOT BILATERAL 2 VIEWS COMPLETED DATE/TIME: 10/10/2018 12:20 pm REASON FOR STUDY: assess for osteo COMPARISON: None. NUMBER OF VIEWS: Two views. TECHNIQUE: AP and lateral radiographic images acquired of the right and left foot. LIMITATIONS: None. FINDINGS: MINERALIZATION: Normal. BONES: There is a healing fracture of the base of the left 5th metatarsal. There is a lucency in the navicular bone consistent with nondisplaced fracture. There is a small cyst in the navicular as wel l. The right foot is intact. JOINTS: No effusions. SOFT TISSUES: There appears to be a soft tissue ulcer on the ventral aspect of the left foot best see n on the lateral projection. OTHER: No other significant finding. IMPRESSION: 1. Healing fracture of the base of the left 5th metatarsal. 2. Suspect fracture in the left navicular bone. This is seen on the AP projection only. TECHNICAL DOCUMENTATION: JOB ID: [id number] [employer]- All Rights Reserved Reading location - IP/workstation name: [email or web address]
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
--- NOTE | 2018-10-10 17:38 | RADIOLOGY REPORT (SQ) ---
EXAM DESCRIPTION: CAROTID DOPPLER COMPLETED DATE/TIME: 10/10/2018 4:14 pm REASON FOR STUDY: Acute CVA COMPARISON: 2013 TECHNIQUE: Grayscale ultrasound, Doppler velocity and spectra, and color Doppler images acquired of the extra-cranial carotid and vertebral arteries. Images stored on PACS. LIMITATIONS: None. FINDINGS: RIGHT CAROTID CCA Velocities: Within normal limits. ICA Velocities Peak systolic 1.07 m/s. End diastolic 0.34 m/s. Proximal ICA/CCA peak systolic ratio 1.7. Mild homogeneous plaque proximal ICA. LEFT CAROTID CCA Velocities: Within normal limits. ICA Velocities Peak systolic 1.05 m/s. End diastolic 0.38 m/s. Proximal ICA/CCA peak systolic ratio 1 point. Mild homogeneous plaque proximal ICA. VERTEBRAL ARTERIES: Antegrade flow. Normal waveforms. SUBCLAVIAN ARTERIES: Not imaged. OTHER: No other significant finding. IMPRESSION: NO HEMODYNAMICALLY SIGNIFICANT STENOSIS. COMMENT: Quality ID #[id number]: Velocity criteria are extrapolated from the diameter data as defined by t he Society of Radiologists in Ultrasound Consensus Conference. Radiology 2003: 229; 340-346. TECHNICAL DOCUMENTATION: JOB ID: [id number]- All Rights Reserved Reading location - IP/workstation name: [email or web address]
--- NOTE | 2018-10-10 18:33 | PDOC PROGRESS REPORT ---
Subjective Progress Note for:: 10/10/18 Subjective:: This is a 63 yr old male with a PMH of diabetes, hypertension, chronic ulcers on both feet and prior CVA x2 who presented with complaint of right-sided weakness. He as found to have an acute CVA in the left PV area to the basal ganglia. He was not a tPA candidate. No acute event overnight. His right arm has 4/5 strength today and right leg has 3/5. He has a left plantar ulcer with no active drainage an there is also a right middle toe eschar. Reason For Visit: ACUTE CVA Physical Exam Vital Signs: Temp Pulse Resp BP Pulse Ox 97.8 F 64 14 134/76 H 95 10/10/18 15:39 10/10/18 15:39 10/10/18 15:39 10/10/18 15:39 10/10/18 15:39 Intake & Output 10/09/18 10/10/18 10/11/18 06:59 06:59 06:59 Output Total 1150 1150 Balance -1150 -1150 Weight 268 lb 4.841 oz 268 lb 4.841 oz General appearance: PRESENT: no acute distress, well-developed, well-nourished Head exam: PRESENT: atraumatic, normocephalic Eye exam: PRESENT: conjunctiva pink, EOMI, PERRLA. ABSENT: scleral icterus Ear exam: PRESENT: normal external ear exam Mouth exam: PRESENT: moist, tongue midline Neck exam: ABSENT: carotid bruit, JVD, lymphadenopathy, thyromegaly Respiratory exam: PRESENT: clear to auscultation garth. ABSENT: rales, rhonchi, wheezes Cardiovascular exam: PRESENT: RRR. ABSENT: diastolic murmur, rubs, systolic murmur Pulses: PRESENT: normal dorsalis pedis pul GI/Abdominal exam: PRESENT: normal bowel sounds, soft. ABSENT: distended, guarding, mass, organolmegaly, rebound, tenderness Rectal exam: PRESENT: deferred Musculoskeletal exam: PRESENT: other - He has a left plantar ulcer with no active drainage an there is also a right middle toe eschar. Neurological exam: PRESENT: alert, awake, oriented to person, oriented to place, oriented to time, oriented to situation, CN II-XII grossly intact, motor sensory deficit - his right arm has 4/5 strength today and right leg has 3/5. Results Laboratory Results: 10/10/18 06:01 10/09/18 15:15 10/09/18 10/10/18 15:15 06:01 WBC 5.7 RBC 4.75 Hgb 13.4 L Hct 38.5 MCV 81 MCH 28.2 MCHC 34.9 RDW 14.1 H Plt Count 257 Seg Neutrophils % 57.7 Lymphocytes % 29.7 Monocytes % 9.3 Eosinophils % 2.6 Basophils % 0.7 Absolute Neutrophils 3.3 Absolute Lymphocytes 1.7 Absolute Monocytes 0.5 Absolute Eosinophils 0.1 Absolute Basophils 0.0 Triglycerides 155 H Cholesterol 195.66 LDL Cholesterol Direct 128 H VLDL Cholesterol 31.0 HDL Cholesterol 43 10/09/18 15:15 Troponin I < 0.012 Impressions: Chest X-Ray 10/09/18 13:50 IMPRESSION: NO ACUTE RADIOGRAPHIC FINDING IN THE CHEST. Head CT 10/09/18 13:51 IMPRESSION: There is a hypodensity of the posterior left mendez radiata new from prior examination dated 2013, consistent with age-indeterminate infarction and an anatomic correlate for right leg weakness. MRI may be used to further evaluate for acute diffusion restricting infarction. EVIDENCE OF ACUTE STROKE: NO. Head MRI 10/09/18 15:26 IMPRESSION: There is an acute/subacute infarction on the left as described. EVIDENCE OF ACUTE STROKE: YES. 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 Foot X-Ray 10/10/18 11:24 IMPRESSION: 1. Healing fracture of the base of the left 5th metatarsal. 2. Suspect fracture in the left navicular bone. This is seen on the AP projection only. Assessment and Plan - Diagnosis (1) Acute CVA (cerebrovascular accident) Is this a current diagnosis for this admission?: Yes Plan: He is currently getting his echo and carotid Doppler as part of his CVA work up. Continue aspirin and statin. (2) Diabetic foot ulcers Is this a current diagnosis for this admission?: Yes Plan: He has a left plantar ulcer with no active drainage an there is also a right middle toe eschar. Will order x-rays to check for osteo. Will also consult surgery for further recommendations. - Time Time Spent with patient: 15-24 minutes
[2018-10-10] MEDS: COLLAGENASE CLOSTRIDIUM HIST. OINT 30 GM TOP SCH (18:46)
--- NOTE | 2018-10-10 21:18 | XCELERA REPORT ---
[address] [address] Transthoracic Echocardiogram Report Name: SARAH MARIN Age: 63 yrs Gender: Male : 1955 Patient Status: Inpatient Patient Location: [address] [place] [address] Study Date: 10/10/2018 10:42 AM Height: 71 in Weight: 270 lb BSA: 2.4 m2 Procedure: A two-dimensional transthoracic echocardiogram with color flow Doppler was performed. Study Quality: Technically suboptimal. The study was technically difficult with many images being suboptimal in quality. Reason For Study: Acute CVA History: CVA. Ordering Physician: SOPHY GARCIA Performed By: Danuta Montoya Interpretation Summary There is no obvious cardiac source of embolus noted on this transthoracic echocardiogram. Follow-up with a ANDRES is suggested if cardiac source is still suspected. The left ventricle is normal in size. There is mild concentric left ventricular hypertrophy. LV EF is 60% Left ventricular systolic function is low normal. Doppler measurements suggest impaired left ventricular relaxation, which is associated with grade I/IV or mild diastolic dysfunction The left ventricular wall motion is normal. There is no thrombus. The right ventricle is not well visualized secondary to technical limitations The left atrial size is normal. There is no evidence of mitral valve prolapse. There is no vegetation seen on the mitral valve. There is no mitral valve stenosis. There is no mitral regurgitation noted. There is no aortic valvular vegetation. There is no aortic valve stenosis There is aortic sclerosis without aortic stenosis. There is no LVOT obstruction. No aortic regurgitation is present. There is no tricuspid stenosis. No tricuspid regurgitation. Unable to calculate RVSP due lack of TR jet. There is no pulmonic valvular stenosis. There is a trace amount of pulmonic regurgitation The aortic root is normal size. There is no pericardial effusion. There is no obvious cardiac source of embolus noted on this transthoracic echocardiogram. Follow-up with a ANDRES is suggested if cardiac source is still suspected MMode/2D Measurements & Calculations RVDd: 3.9 cm LVIDd: 4.3 cm FS: 30.1 % Ao root diam: 3.4 cm IVSd: 1.3 cm LVIDs: 3.0 cm EDV(Teich): 84.8 ml Ao root area: 9.2 cm2 LVPWd: 1.3 cm ESV(Teich): 35.9 ml EF(Teich): 57.6 % Doppler Measurements & Calculations MV E max arnoldo: MV dec slope: Ao V2 max: LV V1 max P.4 cm/sec 176.0 cm/sec2 101.1 cm/sec 2.3 mmHg MV A max arnoldo: MV dec time: 0.31 secAo max PG: LV V1 max: 83.2 cm/sec 4.1 mmHg 75.7 cm/sec MV E/A: 0.65 PA V2 max: PI end-d arnoldo: 68.7 cm/sec 124.8 cm/sec PA max P.9 mmHg Left Ventricle The left ventricle is normal in size. There is mild concentric left ventricular hypertrophy. LV EF is 60%. Left ventricular systolic function is low normal. Doppler measurements suggest impaired left ventricular relaxation, which is associated with grade I/IV or mild diastolic dysfunction. The left ventricular wall motion is normal. There is no thrombus. Right Ventricle The right ventricle is not well visualized secondary to technical limitations. Atria Right atrium not well visualized secondary to technical limitations. The left atrial size is normal. Mitral Valve There is no evidence of mitral valve prolapse. There is no vegetation seen on the mitral valve. There is no mitral valve stenosis. There is no mitral regurgitation noted. Aortic Valve There is no aortic valvular vegetation. There is no aortic valve stenosis. There is aortic sclerosis without aortic stenosis. There is no LVOT obstruction. No aortic regurgitation is present. Tricuspid Valve There is no tricuspid stenosis. No tricuspid regurgitation. Unable to calculate RVSP due lack of TR jet. Pulmonic Valve There is no pulmonic valvular stenosis. There is a trace amount of pulmonic regurgitation. Great Vessels The aortic root is normal size. Effusions There is no pericardial effusion. : SOPHY GARCIA > Sybil Ordaz
[2018-10-10] MEDS: ATORVASTATIN CALCIUM 80 MG TABLET PO SCH (21:57)
[2018-10-10] MEDS: DOXYCYCLINE HYCLATE 100 MG TABLET PO SCH (21:57)
[2018-10-10] MEDS: GABAPENTIN 400 MG CAPSULE PO SCH (21:57)
[2018-10-10] MEDS: INSULIN GLARGINE,HUM.REC.ANLOG 1,000 UNIT/10 ML VIAL SUBCUT SCH (21:58)
--- NOTE | 2018-10-10 23:16 | RADIOLOGY REPORT (SQ) ---
EXAM DESCRIPTION: MR LOWER EXTREMITY WITHOUT IV CONTRAST BILATERAL , XR FOOT 2 VIEWS BILATERAL COMPLETED DATE/TME: 10/10/2018 00:00 (accession [id number]), 10/10/2018 11:24 (accession [id number]) CLINICAL HISTORY: 63 years Male, Rule out osteo myelitis COMPARISON: Same day, and left foot, 07/03/18. TECHNIQUE/LIMITATION: Conventional MRI before and after IV gadolinium. FINDINGS: MRI, right foot: Increased STIR and heterogeneous diminished T1 signal of the right third distal phalanx. No involucrum. No cloaca. No joint fluid collection. Moderate subcutaneous edema at the dorsal aspect of the proximal right forefoot, partially imaged. Mild osteoarthritis. MRI, left foot: Oblique fracture at the proximal diaphysis of the left fifth metatarsus. Moderate subcutaneous edema at the lateral aspect of the dorsal left forefoot. 3 x 0.7 cm tubular fluid component plantar to the second-third intermetatarsal space may indicate a venous varicosity or ganglion cyst. Mild osteoarthritis. Small scattered chronic erosions and/or subchondral degenerative cyst of the left midfoot partially imaged. IMPRESSION: 1. Bone marrow edema of the right third distal phalanx. Differential diagnosis includes bone contusion and osteomyelitis. 2. Moderate soft tissue edema/cellulitis at the dorsal aspect of bilateral forefeet. 3. Deformity of the proximal left fifth metatarsal shaft indicative of chronic injury.
[2018-10-11] MEDS: LEVOTHYROXINE SODIUM 0.15 MG TABLET PO SCH (06:35)
[2018-10-11] MEDS: INSULIN LISPRO 100 UNIT/ML 3 ML VIAL SUBCUT SCH ×4 (07:41→21:15)
[2018-10-11] MEDS: LISINOPRIL 10 MG TABLET PO SCH (10:25)
[2018-10-11] MEDS: CLONIDINE HCL 0.1 MG TABLET PO SCH ×2 (10:25→17:17)
[2018-10-11] MEDS: ASPIRIN 81 MG TABLET, ENT COATED PO SCH (10:25)
[2018-10-11] MEDS: DOXYCYCLINE HYCLATE 100 MG TABLET PO SCH ×2 (10:25→21:15)
[2018-10-11] MEDS: GABAPENTIN 300 MG CAPSULE PO SCH ×2 (10:25→12:08)
[2018-10-11] MEDS: ENOXAPARIN SODIUM INJ 40 MG/0.4 ML DISP.SYRIN SUBCUT SCH (10:26)
[2018-10-11] MEDS: COLLAGENASE CLOSTRIDIUM HIST. OINT 30 GM TOP SCH (10:26)
[2018-10-11] MEDS: CLOPIDOGREL BISULFATE 75 MG TABLET PO SCH (10:30)
--- NOTE | 2018-10-11 15:52 | PDOC PROGRESS REPORT ---
Subjective Progress Note for:: 10/11/18 Subjective:: This is a 63 yr old male with a PMH of diabetes, hypertension, chronic ulcers on both feet and prior CVA x2 who presented with complaint of right-sided weakness. He as found to have an acute CVA in the left PV area to the basal ganglia. He was not a tPA candidate. 10/10: His right arm has 4/5 strength today and right leg has 3/5. He has a left plantar ulcer with no active drainage an there is also a right middle toe eschar. 10/11: No acute event overnight. He continues to have right sided weakness although the right leg appears to have more strength (4/5) today. MRI shows possible osteomyelitis on the right middle toe. Await further recommendations from surgery. Reason For Visit: ACUTE CVA Physical Exam Vital Signs: Temp Pulse Resp BP Pulse Ox 97.7 F 64 12 129/74 H 98 10/11/18 07:25 10/11/18 08:00 10/11/18 08:00 10/11/18 08:00 10/11/18 08:00 Intake & Output 10/10/18 10/11/18 10/12/18 06:59 06:59 06:59 Intake Total 500 Output Total 1150 2600 500 Balance -1150 -2100 -500 Weight 268 lb 4.841 oz 264 lb 5.348 oz General appearance: PRESENT: no acute distress, well-developed, well-nourished Head exam: PRESENT: atraumatic, normocephalic Eye exam: PRESENT: conjunctiva pink, EOMI, PERRLA. ABSENT: scleral icterus Ear exam: PRESENT: normal external ear exam Mouth exam: PRESENT: moist, tongue midline Neck exam: ABSENT: carotid bruit, JVD, lymphadenopathy, thyromegaly Respiratory exam: PRESENT: clear to auscultation garth. ABSENT: rales, rhonchi, wheezes Cardiovascular exam: PRESENT: RRR. ABSENT: diastolic murmur, rubs, systolic murmur Pulses: PRESENT: normal dorsalis pedis pul GI/Abdominal exam: PRESENT: normal bowel sounds, soft. ABSENT: distended, guarding, mass, organolmegaly, rebound, tenderness Rectal exam: PRESENT: deferred Neurological exam: PRESENT: alert, awake, oriented to person, oriented to place, oriented to time, oriented to situation, CN II-XII grossly intact, motor sensory deficit - right sided wekaness 4/5 Results Laboratory Results: 10/10/18 06:01 10/09/18 15:15 10/09/18 15:15 Troponin I < 0.012 Impressions: Chest X-Ray 10/09/18 13:50 IMPRESSION: NO ACUTE RADIOGRAPHIC FINDING IN THE CHEST. Head CT 10/09/18 13:51 IMPRESSION: There is a hypodensity of the posterior left mendez radiata new from prior examination dated 2013, consistent with age-indeterminate infarction and an anatomic correlate for right leg weakness. MRI may be used to further evaluate for acute diffusion restricting infarction. EVIDENCE OF ACUTE STROKE: NO. Head MRI 10/09/18 15:26 IMPRESSION: There is an acute/subacute infarction on the left as described. EVIDENCE OF ACUTE STROKE: YES. 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 Lower Extremity MRI 10/10/18 00:00 IMPRESSION: 1. Bone marrow edema of the right third distal phalanx. Differential diagnosis includes bone contusion and osteomyelitis. 2. Moderate soft tissue edema/cellulitis at the dorsal aspect of bilateral forefeet. 3. Deformity of the proximal left fifth metatarsal shaft indicative of chronic injury. Foot X-Ray 10/10/18 11:24 IMPRESSION: 1. Healing fracture of the base of the left 5th metatarsal. 2. Suspect fracture in the left navicular bone. This is seen on the AP projection only. Assessment and Plan - Diagnosis (1) Acute CVA (cerebrovascular accident) Is this a current diagnosis for this admission?: Yes Plan: Echo and carotid Doppler are unremarkable. Continue aspirin and statin. (2) Diabetic foot ulcers Is this a current diagnosis for this admission?: Yes Plan: He has a left plantar ulcer with no active drainage an there is also a right middle toe eschar. Will order x-rays to check for osteo. Will also consult surgery for further recommendations. 10/11: MRI ordered by surgery shows possible osteomyelitis on the right middle toe. Await further recommendations from surgery. Continue doxycycline. (3) Hypertension Qualifiers: Hypertension type: essential hypertension Qualified Code(s): I10 - Essential (primary) hypertension Is this a current diagnosis for this admission?: Yes Plan: Blood pressures at goal. Continue lisinopril. (4) Diabetes mellitus type 2 in obese Is this a current diagnosis for this admission?: Yes Plan: Continue Lantus and sliding scale. - Time Time Spent with patient: 15-24 minutes
[2018-10-11] MEDS ORDERED: GLUCAGON,HUMAN RECOMB 1 MG INJ SUBCUT PRN (16:38)
[2018-10-11] MEDS ORDERED: DEXTROSE 50%-WATER 25 GM/50 ML DISP.SYRIN IV PRN ×2 (16:38)
[2018-10-11] MEDS ORDERED: DEXTROSE 40% GEL 15 GM TUBE PO PRN ×2 (16:38)
--- NOTE | 2018-10-11 17:31 | PDOC PROGRESS REPORT ---
Subjective Progress Note for:: 10/11/18 Subjective:: This is a 63-year-old male with ulcers to bilateral feet. He reports continued weakness of his right upper and lower extremity. He also reports pain in his right foot. He denies any fevers, chills, nausea, vomiting, chest pain, shortness of breath, headache, dizziness. Reason For Visit: ACUTE CVA Physical Exam Vital Signs: Temp Pulse Resp BP Pulse Ox 97.9 F 77 18 127/80 H 96 10/11/18 15:36 10/11/18 15:36 10/11/18 15:36 10/11/18 15:36 10/11/18 15:36 Intake & Output 10/10/18 10/11/18 10/12/18 06:59 06:59 06:59 Intake Total 500 500 Output Total 1150 2600 875 Balance -1150 -6866 -189 Weight 121.7 kg 119.9 kg General appearance: PRESENT: no acute distress, cooperative Head exam: PRESENT: atraumatic, normocephalic Eye exam: PRESENT: EOMI Mouth exam: PRESENT: moist, neck supple Neck exam: ABSENT: thyromegaly, tracheal deviation Respiratory exam: PRESENT: unlabored. ABSENT: tachypnea, wheezes Pulses: PRESENT: normal radial pulses GI/Abdominal exam: PRESENT: soft. ABSENT: distended, rigid, tenderness Rectal exam: PRESENT: deferred Extremities exam: PRESENT: other - Necrotic ulcer to right third toe. Ulcer to the plantar surface of the left foot (metatarsal head of 2 and 3) without purulence or active infection. Neurological exam: PRESENT: alert, awake, oriented to person, oriented to place, oriented to time, oriented to situation Psychiatric exam: ABSENT: agitated, anxious, depressed Focused psych exam: ABSENT: delusional Skin exam: ABSENT: jaundice Results Laboratory Results: 10/10/18 06:01 10/09/18 15:15 10/09/18 15:15 Troponin I < 0.012 Impressions: Chest X-Ray 10/09/18 13:50 IMPRESSION: NO ACUTE RADIOGRAPHIC FINDING IN THE CHEST. Head CT 10/09/18 13:51 IMPRESSION: There is a hypodensity of the posterior left mendez radiata new from prior examination dated 2013, consistent with age-indeterminate infarction and an anatomic correlate for right leg weakness. MRI may be used to further evaluate for acute diffusion restricting infarction. EVIDENCE OF ACUTE STROKE: NO. Head MRI 10/09/18 15:26 IMPRESSION: There is an acute/subacute infarction on the left as described. EVIDENCE OF ACUTE STROKE: YES. 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 Lower Extremity MRI 10/10/18 00:00 IMPRESSION: 1. Bone marrow edema of the right third distal phalanx. Differential diagnosis includes bone contusion and osteomyelitis. 2. Moderate soft tissue edema/cellulitis at the dorsal aspect of bilateral forefeet. 3. Deformity of the proximal left fifth metatarsal shaft indicative of chronic injury. Foot X-Ray 10/10/18 11:24 IMPRESSION: 1. Healing fracture of the base of the left 5th metatarsal. 2. Suspect fracture in the left navicular bone. This is seen on the AP projection only. Assessment & Plan - Diagnosis (1) Diabetic foot infection Is this a current diagnosis for this admission?: Yes - Plan Summary Plan Summary: This is a 63-year-old male with a diabetic foot infection. His right foot has an ulcer to the third toe with findings on MRI consistent with osteomyelitis. His ulcer on the left foot appears clean. I have discussed options with the patient at length. I have recommended amputation of his right third toe due to osteomyelitis. The patient will require aggressive wound care to his left foot. The patient has agreed to this. Plan for n.p.o. after midnight with possible surgical intervention tomorrow.
[2018-10-11] MEDS: INSULIN GLARGINE,HUM.REC.ANLOG 1,000 UNIT/10 ML VIAL SUBCUT SCH (21:15)
[2018-10-11] MEDS: GABAPENTIN 400 MG CAPSULE PO SCH (21:15)
[2018-10-11] MEDS: ATORVASTATIN CALCIUM 80 MG TABLET PO SCH (21:15)
[2018-10-11] MEDS: MELATONIN 3 MG TABLET PO PRN (21:18)
[2018-10-12] MEDS ORDERED: NORMAL SALINE 1000 ML 1,000 ML IV PRN (00:01)
[2018-10-12] MEDS: LEVOTHYROXINE SODIUM 0.15 MG TABLET PO SCH (05:15)
[2018-10-12] MEDS: INSULIN LISPRO 100 UNIT/ML 3 ML VIAL SUBCUT SCH ×4 (10:01→21:44)
--- NOTE | 2018-10-12 10:17 | PDOC PROGRESS REPORT ---
Subjective Progress Note for:: 10/12/18 Subjective:: No complaints. Reason For Visit: ACUTE CVA Physical Exam Vital Signs: Temp Pulse Resp BP Pulse Ox 97.8 F 72 16 145/84 H 96 10/12/18 08:00 10/12/18 08:00 10/12/18 08:00 10/12/18 08:00 10/12/18 08:00 Intake & Output 10/11/18 10/12/18 10/13/18 06:59 06:59 06:59 Intake Total 500 740 Output Total 2600 1850 Balance -2100 -1110 Weight 119.9 kg 120.5 kg General appearance: PRESENT: no acute distress, cooperative Respiratory exam: PRESENT: clear to auscultation garth Cardiovascular exam: PRESENT: RRR Extremities exam: PRESENT: other - Left foot ulcer appears clean although there is buildup of callus around the surrounding region. No erythema and no purulent drainage. Right third toe has a black eschar at the tip. No surrounding erythema. Results Laboratory Results: 10/10/18 06:01 10/09/18 15:15 10/09/18 15:15 Troponin I < 0.012 Impressions: Chest X-Ray 10/09/18 13:50 IMPRESSION: NO ACUTE RADIOGRAPHIC FINDING IN THE CHEST. Head CT 10/09/18 13:51 IMPRESSION: There is a hypodensity of the posterior left mendez radiata new from prior examination dated 2013, consistent with age-indeterminate infarction and an anatomic correlate for right leg weakness. MRI may be used to further evaluate for acute diffusion restricting infarction. EVIDENCE OF ACUTE STROKE: NO. Head MRI 10/09/18 15:26 IMPRESSION: There is an acute/subacute infarction on the left as described. EVIDENCE OF ACUTE STROKE: YES. 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 Lower Extremity MRI 10/10/18 00:00 IMPRESSION: 1. Bone marrow edema of the right third distal phalanx. Differential diagnosis includes bone contusion and osteomyelitis. 2. Moderate soft tissue edema/cellulitis at the dorsal aspect of bilateral forefeet. 3. Deformity of the proximal left fifth metatarsal shaft indicative of chronic injury. Foot X-Ray 10/10/18 11:24 IMPRESSION: 1. Healing fracture of the base of the left 5th metatarsal. 2. Suspect fracture in the left navicular bone. This is seen on the AP projection only. Assessment & Plan - Diagnosis (1) Foot ulcer Qualifiers: Laterality: left Is this a current diagnosis for this admission?: Yes Plan: Patient with left foot ulcer with some callus buildup but no evidence of osteomyelitis on MRI. When patient is taken to the OR for his right third toe amputation, will plan to do debridement of the left foot ulcer to clean up some of the callus around it to promote faster healing. (2) Osteomyelitis Qualifiers: Osteomyelitis location: foot Laterality: right Is this a current diagnosis for this admission?: Yes Plan: Osteomyelitis of right third toe is evident on CT scan. Patient has a eschar at the tip of the toe. Patient would benefit from a right third toe amputation but if his recent CVA is a strong contraindication, can hold off on the toe amputa tion for a couple of weeks since he demonstrates no evidence of sepsis. However would prefer to do right third toe amputation earlier than later to prevent risk of infection spreading. Will await Dr. Sparks's input. I have discussed with the patient the risk and benefits of the surgery including risk of poor wound healing, bleeding, infection, worsening of his cerebrovascular accident and cardiopulmonary risks.
[2018-10-12] MEDS: GABAPENTIN 300 MG CAPSULE PO SCH ×2 (11:02→17:07)
[2018-10-12] MEDS: DOXYCYCLINE HYCLATE 100 MG TABLET PO SCH ×2 (11:02→21:43)
[2018-10-12] MEDS: ENOXAPARIN SODIUM INJ 40 MG/0.4 ML DISP.SYRIN SUBCUT SCH (11:05)
--- NOTE | 2018-10-12 15:00 | PDOC PROGRESS REPORT ---
Subjective Progress Note for:: 10/12/18 Subjective:: This is a 63 yr old male with a PMH of diabetes, hypertension, chronic ulcers on both feet and prior CVA x2 who presented with complaint of right-sided weakness. He as found to have an acute CVA in the left PV area to the basal ganglia. He was not a tPA candidate. 10/10: His right arm has 4/5 strength today and right leg has 3/5. He has a left plantar ulcer with no active drainage an there is also a right middle toe eschar. 10/11: He continues to have right sided weakness although the right leg appears to have more strength (4/5) today. MRI shows possible osteomyelitis on the right middle toe. Await further recommendations from surgery. 10/12: No acute event overnight. He denies acute complaint. Surgery is recommending amputation of the right middle toe. There is concern about doing surgery in the setting of acute CVA. Called and discussed with both [facility] and [facility] neurologists, Dr. Pennington and Dr. Carbone who express that there is a higher risk of surgery in CVA patients up to 9 months from the stroke with the highest risk in the first month. Both express that this should not be however a contraindication if patient requires the intervention for the osteo and this will be deferred to the surgeon. Discussed with Dr. Villanueva. Will await further inp ut from [place] as well. Reason For Visit: ACUTE CVA Physical Exam Vital Signs: Temp Pulse Resp BP Pulse Ox 97.6 F 67 18 144/86 H 95 10/12/18 11:27 10/12/18 11:27 10/12/18 11:27 10/12/18 11:27 10/12/18 11:27 Intake & Output 10/11/18 10/12/18 10/13/18 06:59 06:59 06:59 Intake Total 500 740 Output Total 2600 1850 Balance -2100 -1110 Weight 264 lb 5.348 oz 265 lb 10.512 oz General appearance: PRESENT: no acute distress, well-developed, well-nourished Head exam: PRESENT: atraumatic, normocephalic Eye exam: PRESENT: conjunctiva pink, EOMI, PERRLA. ABSENT: scleral icterus Ear exam: PRESENT: normal external ear exam Mouth exam: PRESENT: moist, tongue midline Neck exam: ABSENT: carotid bruit, JVD, lymphadenopathy, thyromegaly Respiratory exam: PRESENT: clear to auscultation garth. ABSENT: rales, rhonchi, wheezes Cardiovascular exam: PRESENT: RRR. ABSENT: diastolic murmur, rubs, systolic murmur Pulses: PRESENT: normal dorsalis pedis pul GI/Abdominal exam: PRESENT: normal bowel sounds, soft. ABSENT: distended, guarding, mass, organolmegaly, rebound, tenderness Rectal exam: PRESENT: deferred Musculoskeletal exam: PRESENT: other - chronic ulcer on left foot, plantar aspect wiht no drainage or signs of infection note of a chronic ulcer with eschar on the right middle to, no surrounding erythema or active drainage Neurological exam: PRESENT: alert, awake, oriented to person, oriented to place, oriented to time, oriented to situation, CN II-XII grossly intact, motor sensory deficit - 4/5 motor strenght on right arm and right leg Results Laboratory Results: 10/10/18 06:01 10/09/18 15:15 10/09/18 15:15 Troponin I < 0.012 Impressions: Chest X-Ray 10/09/18 13:50 IMPRESSION: NO ACUTE RADIOGRAPHIC FINDING IN THE CHEST. Head CT 10/09/18 13:51 IMPRESSION: There is a hypodensity of the posterior left emndez radiata new fr om prior examination dated 2013, consistent with age-indeterminate infarction and an anatomic correlate for right leg weakness. MRI may be used to further evaluate for acute diffusion restricting infarction. EVIDENCE OF ACUTE STROKE: NO. Head MRI 10/09/18 15:26 IMPRESSION: There is an acute/subacute infarction on the left as described. EVIDENCE OF ACUTE STROKE: YES. 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 Lower Extremity MRI 10/10/18 00:00 IMPRESSION: 1. Bone marrow edema of the right third distal phalanx. Differential diagnosis includes bone contusion and osteomyelitis. 2. Moderate soft tissue edema/cellulitis at the dorsal aspect of bilateral forefeet. 3. Deformity of the proximal left fifth metatarsal shaft indicative of chronic injury. Foot X-Ray 10/10/18 11:24 IMPRESSION: 1. Healing fracture of the base of the left 5th metatarsal. 2. Suspect fracture in the left navicular bone. This is seen on the AP projection only. Assessment and Plan - Diagnosis (1) Acute CVA (cerebrovascular accident) Is this a current diagnosis for this admission?: Yes Plan: Echo and carotid Doppler are unremarkable. Continue aspirin and statin. (2) Osteomyelitis Qualifiers: Osteomyelitis location: foot Laterality: right Is this a current diagnosis for this admission?: Yes Plan: 10/12: Surgery is recommending amputation of the right middle toe. There is concern about doing surgery in the setting of acute CVA. Called and discussed with both [facility] and [facility] neurologists, Dr. Pennington and Dr. Carbone who express that there is a higher risk of surgery in CVA patients up to 9 months from the stroke with the highest risk in the first month. Both express that this should not be however a contraindication if patient requires the intervention for the osteo and this will be deferred to the surgeon. Discussed with Dr. Villanueva. Will await further input from ID as well. (3) Diabetic foot ulcers Is this a current diagnosis for this admission?: Yes Plan: He has a left plantar ulcer with no active drainage an there is also a right middle toe eschar. Will order x-rays to check for osteo. Will also consult surgery for further recommendations. 10/11: MRI ordered by surgery shows possible osteomyelitis on the right middle toe. Await further recommendations from surgery. Continue doxycycline. 10/12: Continue doxycyline. Await further input form ID. (4) Hypertension Qualifiers: Hypertension type: essential hypertension Qualified Code(s): I10 - Essential (primary) hypertension Is this a current diagnosis for this admission?: Yes Plan: Blood pressures at goal. Continue lisinopril. (5) Diabetes mellitus type 2 in obese Is this a current diagnosis for this admission?: Yes Plan: Continue Lantus and sliding scale. - Time Time Spent with patient: 35 or more minutes
[2018-10-12] MEDS: CLONIDINE HCL 0.1 MG TABLET PO SCH ×2 (15:33→17:53)
[2018-10-12] MEDS: ASPIRIN 81 MG TABLET, ENT COATED PO SCH (15:34)
[2018-10-12] MEDS: CLOPIDOGREL BISULFATE 75 MG TABLET PO SCH (15:35)
[2018-10-12] MEDS: LISINOPRIL 10 MG TABLET PO SCH (15:36)
--- NOTE | 2018-10-12 16:27 | PDOC PROGRESS REPORT ---
Subjective Reason For Visit: ACUTE CVA Physical Exam Vital Signs: Temp Pulse Resp BP Pulse Ox 97.6 F 86 18 144/86 H 95 10/12/18 11:27 10/12/18 14:00 10/12/18 11:27 10/12/18 11:27 10/12/18 11:27 Intake & Output 10/11/18 10/12/18 10/13/18 06:59 06:59 06:59 Intake Total 863 681 8540 Output Total 2600 1850 800 Balance -2100 -1110 400 Weight 119.9 kg 120.5 kg Results Laboratory Results: 10/10/18 06:01 10/09/18 15:15 10/09/18 15:15 Troponin I < 0.012 Impressions: Chest X-Ray 10/09/18 13:50 IMPRESSION: NO ACUTE RADIOGRAPHIC FINDING IN THE CHEST. Head CT 10/09/18 13:51 IMPRESSION: There is a hypodensity of the posterior left mendez radiata new from prior examination dated 2013, consistent with age-indeterminate infarction and an anatomic correlate for right leg weakness. MRI may be used to further evaluate for acute diffusion restricting infarction. EVIDENCE OF ACUTE STROKE: NO. Head MRI 10/09/18 15:26 IMPRESSION: There is an acute/subacute infarction on the left as described. EVIDENCE OF ACUTE STROKE: YES. 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 Lower Extremity MRI 10/10/18 00:00 IMPRESSION: 1. Bone marrow edema of the right third distal phalanx. Differential diagnosis includes bone contusion and osteomyelitis. 2. Moderate soft tissue edema/cellulitis at the dorsal aspect of bilateral forefeet. 3. Deformity of the proximal left fifth metatarsal shaft indicative of chronic injury. Foot X-Ray 10/10/18 11:24 IMPRESSION: 1. Healing fracture of the base of the left 5th metatarsal. 2. Suspect fracture in the left navicular bone. This is seen on the AP projection only. Assessment & Plan - Diagnosis (1) Foot ulcer Qualifiers: Laterality: left Is this a current diagnosis for this admission?: Yes (2) Osteomyelitis Qualifiers: Osteomyelitis location: foot Laterality: right Is this a current diagnosis for this admission?: Yes Plan: Neurology felt that patient would be high risk of cardiovascular complications so soon after his stroke. Patient has no erythema, no fever, no leukocytosis and certainly no evidence of sepsis. I think it would be reasonable to hold off his third toe amputation for a few more weeks. Recommend treating with antibiotics and follow-up at the wound care clinic as an outpatient with also follow-up with Dr. Pedro in 3 weeks for consideration of third toe amputation. I have informed the patient that if he has any clinical change that she has recurrent erythema fever purulent drainage etc., he is to inform us VIKI for readmission and surgical intervention. Surgical service signing off. Please call us for any problems or questions.
[2018-10-12] MEDS: COLLAGENASE CLOSTRIDIUM HIST. OINT 30 GM TOP SCH (17:13)
[2018-10-12] MEDS: ATORVASTATIN CALCIUM 80 MG TABLET PO SCH (21:43)
[2018-10-12] MEDS: MELATONIN 3 MG TABLET PO PRN (21:43)
[2018-10-12] MEDS: GABAPENTIN 400 MG CAPSULE PO SCH (21:43)
[2018-10-12] MEDS: INSULIN GLARGINE,HUM.REC.ANLOG 1,000 UNIT/10 ML VIAL SUBCUT SCH (21:44)
--- NOTE | 2018-10-12 21:49 | Progress Note ---
Provider Note Provider Note: ID Consult Note Asked to review patient's chart by Dr Flaherty. Reviewed recent provider reports, VS, labs and imaging results; also spoke with Dr Flaherty via telephone earlier this evening. Mr. Young is an obese 63 year old man who has PMH including prior CVA and diabetes complicated by peripheral neuropathy with loss of protective sensation and burning neuropathic pain. He was admitted on 10/09/18 with R sided weakness found to be due to acute CVA. He also reported recently being prescribed doxycycline for cellulitis involving his right foot. His right 3rd toe has been noted to have a necrotic ulcer or a black eschar at the tip. The toe does not have erythema or fluctuance or drainage, tenderness or crepitus noted. MRI of his foot showed changes consistent with osteomyelitis in the distal phalanx. He was recommended amputation of the toe for defintive management, but due to recent CVA, the plan for this is being postponed for 3-4 weeks. No recent cultures are available to help give a sense of what he may be more likely to have infecting the toe. Reviewing older cultures in the [facility] EHR, it only shows that he had MSSA and Group B Strep that grew from a swab of an oozing skin lesion on his arm that he had 3 months ago in June 2018. His WBC count is normal, and he has not had a fever. Impression/Recommendations R 3rd toe diabetic foot osteomyelitis Recent R foot cellulitis Recent CVA I suspect that the increased risk with surgery after acute CVA is related to ge neral anesthesia. I would be curious to know if his toe amputation could be done under a regional nerve block for anesthesia and whether this would also be expected to confer a prohibitively increased risk after recent stroke. This is outside my area of expertise, but there seems to be considerably lower incidence of cardiovascular and neurological side effects with peripheral blocks than general or spinal anesthesia reported in the literature. If surgery must be delayed, whether the patient needs to continue to receive empiric antibiotics is uncertain. What has to be considered is what is the likelihood of unacceptable progression of infection in absence of treatment for 3-4 weeks. Another limiting factor is the lack of culture data for the foot. Generally, embarking on a prolonged course of empiric antibiotics should be avoided because it might fail to target the pathogens responsible and because of side effects with broad spectrum agents. Outcomes are better with culture-guided antibiotic treatment. If there is a need to treat empirically, in absence of a history of prior MRSA infection, PO Levaquin might be a reasonable choice. If the patient reports a hx of prior MRSA infections, PO Bactrim would normally be an option but probably not with his size. The bone penetration of doxycycline can vary with the site involved, but it might be acceptable since he reported marked improvement in his R foot cellulitis with this agent and if the goal of giving him an antibiotic until surgery is temporize, not to cure. Dalton Perez MD [facility] pager [phone]
[2018-10-13] MEDS: LEVOTHYROXINE SODIUM 0.15 MG TABLET PO SCH (05:14)
[2018-10-13] MEDS: INSULIN LISPRO 100 UNIT/ML 3 ML VIAL SUBCUT SCH ×2 (08:19→12:36)
[2018-10-13] MEDS: CLOPIDOGREL BISULFATE 75 MG TABLET PO SCH (09:36)
[2018-10-13] MEDS: GABAPENTIN 300 MG CAPSULE PO SCH (09:36)
[2018-10-13] MEDS: ASPIRIN 81 MG TABLET, ENT COATED PO SCH (09:37)
[2018-10-13] MEDS: CLONIDINE HCL 0.1 MG TABLET PO SCH (09:37)
[2018-10-13] MEDS: ENOXAPARIN SODIUM INJ 40 MG/0.4 ML DISP.SYRIN SUBCUT SCH (09:38)
[2018-10-13] MEDS: LISINOPRIL 10 MG TABLET PO SCH (09:38)
[2018-10-13] MEDS: DOXYCYCLINE HYCLATE 100 MG TABLET PO SCH (09:38)
[2018-10-13] MEDS: COLLAGENASE CLOSTRIDIUM HIST. OINT 30 GM TOP SCH (09:39)
[2018-10-13 13:29] VITALS: BP 140/79
--- NOTE | 2018-10-13 18:20 | PDOC DISCHARGE SUMMARY ---
General - Admit/Disc Date/PCP Admission Date/Primary Care Provider: 10/09/18 18:03 JESUS BAIG NP Discharge Date: 10/13/18 - Discharge Diagnosis (1) Acute CVA (cerebrovascular accident) Is this a current diagnosis for this admission?: Yes (2) Osteomyelitis Is this a current diagnosis for this admission?: Yes (3) Diabetic foot ulcers Is this a current diagnosis for this admission?: Yes (4) Hypertension Is this a current diagnosis for this admission?: Yes (5) Diabetes mellitus type 2 in obese Is this a current diagnosis for this admission?: Yes - Additional Information Resuscitation Status: Full Code Discharge Diet: As Tolerated Discharge Activity: Activity As Tolerated, Balance Activity w/Rest, No Driving, Slowly Increase Activity, Walk Frequently, Weigh Daily Prescriptions: Aspirin [Adult Aspirin Regimen] 81 mg PO DAILY #60 tablet. Atorvastatin Calcium [Lipitor 80 mg Tablet] 40 mg PO QHS #30 tablet Clopidogrel Bisulfate [Plavix 75 mg Tablet] 75 mg PO DAILY #30 tablet Levofloxacin [Levaquin 750 mg Tablet] 750 mg PO DAILY #24 tab Home Medications: Amlodipine Besylate [Norvasc 10 mg Tablet] 10 mg PO QAM 10/09/18 Clonidine HCl [Catapres 0.1 mg Tablet] 0.1 mg PO BID 10/09/18 Gabapentin [Neurontin] 1,200 mg PO QHS 10/09/18 Gabapentin [Neurontin] 600 mg PO BID@0800,1300 10/09/18 Glipizide [Glucotrol] 20 mg PO BID 10/09/18 Levothyroxine Sodium [Synthroid 0.15 mg Tablet] 0.15 mg PO Q6AM 10/09/18 Lisinopril [Zestril] 40 mg PO QAM 10/09/18 Melatonin [Melatonin 3 mg Tablet] 9 mg PO HSP PRN 10/09/18 Metformin HCl [Glucophage 500 mg Tablet] 1,000 mg PO BIDBS 10/09/18 Mupirocin [Bactroban 2% Ointment 22 gm] 1 applic TOP BID 10/09/18 Aspirin [Adult Aspirin Regimen] 81 mg PO DAILY #60 tablet. 10/13/18 Atorvastatin Calcium [Lipitor 80 mg Tablet] 40 mg PO QHS #30 tablet 10/13/18 Clopidogrel Bisulfate [Plavix 75 mg Tablet] 75 mg PO DAILY #30 tablet 10/13/18 Insulin Glargine,Hum.rec.anlog [Lantus Insulin 100 Unit/1 ml 10 ml] 60 units SQ QHS #0 10/13/18 Levofloxacin [Levaquin 750 mg Tablet] 750 mg PO DAILY #24 tab 10/13/18 History of Present Illness History of Present Illness: Admitting hospitalist's H&P: SARAH MARIN is a 63 year old male history of diabetes, hypertension, prior CVA x2, now presents with complaint of right-sided weakness. He first noticed this 6 days ago, while he was away in [place], [place]. His last stroke had affected the right side but his strength almost completely returned. He now developed worsening weakness this time. At first, he thought he sat wrong. When after a few days his weakness was not getting better, his came to get him and drive him back to [place], as he did not want to go to a hospital far from home. He denies dysarthria, no trouble swallowing. The weakness is worse on his right leg. Denies chest pain or shortness of breath, no palpitations. No lower extremity swelling. Evaluation in the ED significant for head CT revealing CVA. Head MRI also confirmed a CVA as an imaging below. Patient was treated with aspirin 324 mg and referred for admission. Hospital Course Hospital Course: This is a 63 yr old male with a PMH of diabetes, hypertension, chronic ulcers on both feet and prior CVA x2 who presented with complaint of right-sided weakness. He as found to have an acute CVA in the left PV area to the basal ganglia. He was not a tPA candidate. He was medicall optimized for his acute CVA. Clopdiogrel was added to his previous home medication. Echo and carotid Doppler are unremarkable. He does brown ve a follow up visit with his neurologist. He has a left plantar ulcer with no active drainage an there is also a right middle toe eschar. Surgery evaluated patient and MRI was done which showed poss ible osteomyelitis on the right middle toe. Due to his recent CVA, surgery has decided to defer toe amputation in 3-4 weeks. Id was consulted and recommended PO Levaquin until he sees surgery for re-evaluation of toe amputation. He will be discharged on PO Levaquin until then. His Lantus was also increased to 60 units daily. Physical Exam Vital Signs: Temp Pulse Resp BP Pulse Ox 98.0 F 78 18 140/79 H 91 L 10/13/18 13:20 10/13/18 13:20 10/13/18 13:20 10/13/18 13:20 10/13/18 13:20 Intake & Output 10/12/18 10/13/18 10/14/18 06:59 06:59 06:59 Intake Total 740 3150 880 Output Total 1850 2850 400 Balance -1110 300 480 Weight 265 lb 10.512 oz 261 lb 11.019 oz General appearance: PRESENT: no acute distress, well-developed, well-nourished Head exam: PRESENT: atraumatic, normocephalic Eye exam: PRESENT: conjunctiva pink, EOMI, PERRLA. ABSENT: scleral icterus Ear exam: PRESENT: normal external ear exam Mouth exam: PRESENT: moist, tongue midline Neck exam: ABSENT: carotid bruit, JVD, lymphadenopathy, thyromegaly Respiratory exam: PRESENT: clear to auscultation garth. ABSENT: rales, rhonchi, wheezes Cardiovascular exam: PRESENT: RRR. ABSENT: diastolic murmur, rubs, systolic murmur Pulses: PRESENT: normal dorsalis pedis pul GI/Abdominal exam: PRESENT: normal bowel sounds, soft. ABSENT: distended, guarding, mass, organolmegaly, rebound, tenderness Rectal exam: PRESENT: deferred Musculoskeletal exam: PRESENT: other - other - chronic ulcer on left foot, plantar aspect with no drainage or signs of infection note of a chronic ulcer with eschar on the right middle to, no surrounding erythema or active drainage Neurological exam: PRESENT: alert, awake, oriented to person, oriented to place, oriented to time, oriented to situation, CN II-XII grossly intact, motor sensory deficit - 4/5 motor strength on right arm and right leg Results Laboratory Results: 10/10/18 06:01 10/09/18 15:15 10/12/18 18:34 C-Reactive Protein 7.0 10/09/18 15:15 Troponin I < 0.012 Impressions: Chest X-Ray 10/09/18 13:50 IMPRESSION: NO ACUTE RADIOGRAPHIC FINDING IN THE CHEST. Head CT 10/09/18 13:51 IMPRESSION: There is a hypodensity of the posterior left mendez radiata new from prior examination dated 2013, consistent with age-indeterminate infarction and an anatomic correlate for right leg weakness. MRI may be used to further evaluate for acute diffusion restricting infarction. EVIDENCE OF ACUTE STROKE: NO. Head MRI 10/09/18 15:26 IMPRESSION: There is an acute/subacute infarction on the left as described. EVIDENCE OF ACUTE STROKE: YES. LEFT INVENTORY CLERK Carotid Doppler Study 10/10/18 00:00 IMPRESSION: NO HEMODYNAMICALLY SIGNIFICANT STENOSIS. Lower Extremity MRI 10/10/18 00:00 IMPRESSION: 1. Bone marrow edema of the right third distal phalanx. Differential diagnosis includes bone contusion and osteomyelitis. 2. Moderate soft tissue edema/cellulitis at the dorsal aspect of bilateral forefeet. 3. Deformity of the proximal left fifth metatarsal shaft indicative of chronic injury. Foot X-Ray 10/10/18 11:24 IMPRESSION: 1. Healing fracture of the base of the left 5th metatarsal. 2. Suspect fracture in the left navicular bone. This is seen on the AP projection only. Qualifiers - * PATIENT BEING DISCHARGED WITH ANY OF THE FOLLOWING DIAGNOSIS: Stroke Stroke Pt being discharged on Anti-thrombolytic therapy?: Yes Stroke Pt being discharged on Anti-coagulation therapy?: Yes Stroke Pt being discharged on Statins?: Yes
== END 2018-10-13 15:04 | disposition home health service (06) | DRG 65 ==
LOC: ER 12:03 → EH 18:03 → 3S 22:43
PROVIDERS: ADMIT Internal Medicine; ATTEND Internal Medicine
DX: I63.9 Cerebral infarction, unspecified (principal); I69.351 Hemiplegia and hemiparesis following cerebral infarction affecting right dominant side; L03.115 Cellulitis of right lower limb; M86.9 Osteomyelitis, unspecified; L97.529 Non-pressure chronic ulcer of other part of left foot with unspecified severity; L97.519 Non-pressure chronic ulcer of other part of right foot with unspecified severity; E11.40 Type 2 diabetes mellitus with diabetic neuropathy, unspecified; E11.65 Type 2 diabetes mellitus with hyperglycemia; E11.621 Type 2 diabetes mellitus with foot ulcer; I10 Essential (primary) hypertension; E03.9 Hypothyroidism, unspecified; E78.5 Hyperlipidemia, unspecified; Z60.2 Problems related to living alone; Z79.84 Long term (current) use of oral hypoglycemic drugs; Z79.82 Long term (current) use of aspirin; Z79.4 Long term (current) use of insulin; Z79.899 Other long term (current) drug therapy
CPT/HCPCS: 36415; 70450; 70551; 71045; 80053; 80061; 81001; 82962; 83036; 83690; 84484; 85025; 85610; 85652; 85730; 86140; 93005; 93010; 93306; 93880; 99285; J1650; J1815; J3490; J7030

== ENCOUNTER → 2018-10-25 | Outpatient (CLI) | payer MEDICARE ==
--- NOTE | 2018-10-25 16:21 | XCELERA REPORT ---
[address] [address] Lower Extremity Arterial Evaluation Name: SARAH MARIN Age: 63 yrs Gender: Male : 1955 Patient Status: Outpatient Patient Location: Study Date: 10/25/2018 01:24 PM Procedure: A color flow and duplex scan of the lower extremity arteries was performed bilaterally with velocity and waveform analysis. Ankle brachial indicies performed. Reason For Study: ULCER Ordering Physician: STEPHANIE MONSALVE Performed By: Daron Mcguire Measurements and Calculations Right Left PROFESSIONAL ATHLETE PSV 91.0 135.3 cm/sec Prox PFA PSV -74.2 -87.7 cm/sec Prox SFA PSV 125.7 148.3 cm/sec Mid SFA PSV -87.4 -104.1cm/sec Dist SFA PSV -69.8 -92.6 cm/sec Prox Pop A PSV 48.7 83.5 cm/sec Dist TRISTA PSV 98.2 76.8 cm/sec Dist DIRECTOR TITLE PSV 111.9 144.6 cm/sec Yohan Pedis PSV 139.7 45.5 cm/sec Right Side Arterial Evaluation Normal velocity and triphasic waveforms noted from the Common Femoral artery to the infrageniculate vessels . Ankle Brachial index 1.17. Left Side Arterial Evaluation Normal velocity and triphasic waveforms noted from the Common Femoral artery to the infrageniculate vessels . Ankle Brachial index 1.21. Interpretation Summary No hemodynamically significant lesions in the bilateral lower extremities, on duplex imaging, at rest. : STEPHANIE MONSALVE > Carlos A Jauregui
== END ==
LOC: SP 12:51
PROVIDERS: ATTEND Nurse Practitioner Family
DX: L97.512 Non-pressure chronic ulcer of other part of right foot with fat layer exposed (principal); L97.522 Non-pressure chronic ulcer of other part of left foot with fat layer exposed
CPT/HCPCS: 93925

== ENCOUNTER → 2018-11-06 | Outpatient (CLI) | payer OTHER, MEDICARE ==
[2018-11-06 14:12] LABS: ABSOLUTE EOSINOPHILS # (AUTO) 0.2 10^3/uL (0.0-0.6); ABSOLUTE LYMPHOCYTES (AUTO) 1.7 10^3/uL (0.5-4.7); ABSOLUTE MONOCYTES (AUTO) 0.5 10^3/uL (0.1-1.4); ABSOLUTE NEUT (AUTO) 3.7 10^3/uL (1.7-8.2); BASOPHILS % (AUTO) 0.3 % (0-2); EOSINOPHILS % (AUTO) 3.4 % (0-6); HEMATOCRIT 40.6 % (37.9-51.0); MEAN CORPUSCULAR HEMOGLOBIN 28.3 pg (27.0-33.4); MEAN CORPUSCULAR HGB CONC 34.4 g/dL (32.0-36.0); MEAN CORPUSCULAR VOLUME 82 fl (80-97); MONOCYTES % (AUTO) 7.6 % (3-13); PLATELET COUNT 193 10^3/uL (150-450); RED BLOOD COUNT 4.94 10^6/uL (4.35-5.55); RED CELL DISTRIBUTION WIDTH 14.6 % (11.5-14.0); SEGMENTED NEUTROPHILS % (AUTO) 60.7 % (42-78); TOTAL CELLS COUNTED % (AUTO) 100 %
[2018-11-06 14:28] LABS: ALANINE AMINOTRANSFERASE 18 U/L (21-72); ALBUMIN 3.7 g/dL (3.5-5.0); ALKALINE PHOSPHATASE 88 U/L (38-126); ANION GAP 10 (5-19); ASPARTATE AMINO TRANSFERASE 19 U/L (17-59); BILIRUBIN,DIRECT 0.2 mg/dL (0.0-0.4); BILIRUBIN,TOTAL 0.3 mg/dL (0.2-1.3); BLOOD UREA NITROGEN 19 mg/dL (7-20); C-REACTIVE PROTEIN 7.7 mg/L (<10.0); CALCIUM 10.1 mg/dL (8.4-10.2); CARBON DIOXIDE 24 mmol/L (22-30); CHLORIDE 104 mmol/L (98-107); GLUCOSE 322 mg/dL (75-110); POTASSIUM 4.6 mmol/L (3.6-5.0); SODIUM 137.7 mmol/L (137-145); TOTAL PROTEIN 6.8 g/dL (6.3-8.2)
--- NOTE | 2018-11-06 14:47 | RADIOLOGY REPORT (SQ) ---
EXAM DESCRIPTION: FOOT LEFT COMPLETE COMPLETED DATE/TIME: 11/06/2018 2:13 pm REASON FOR STUDY: NON-PRS CHRONIC ULCER OTH PRT LEFT FOOT W FAT LAYER EXPOSED L97.512 NON-PRS CHRON IC ULCER OTH PRT RIGHT FOOT W FAT LAYER L97.522 NON-PRS CHRONIC ULCER OTH PRT LEFT FOOT W FAT LAYER COMPARISON: 07/03/2018 NUMBER OF VIEWS: Three views. TECHNIQUE: AP, lateral and oblique radiographic images acquired of the left foot. LIMITATIONS: None. FINDINGS: MINERALIZATION: Normal. BONES: Incomplete nonunited angulated fracture of the proximal fifth metatarsal bone with periosteal reaction, unchanged finding. Stable mild periosteal reaction along the shafts of the second third a nd fourth metatarsal bones. No acute fracture. Small calcaneal spur. JOINTS: No effusions. SOFT TISSUES: No soft tissue swelling. No foreign body. OTHER: No other significant finding. IMPRESSION: 1. No radiographic evidence of osteomyelitis. 2. Stable appearance to the fifth metatarsal bone as above. TECHNICAL DOCUMENTATION: JOB ID: [id number] [employer]- All Rights Reserved Reading location - IP/workstation name: [email or web address]
--- NOTE | 2018-11-06 14:50 | RADIOLOGY REPORT (SQ) ---
EXAM DESCRIPTION: FOOT RIGHT COMPLETE COMPLETED DATE/TIME: 11/06/2018 2:13 pm REASON FOR STUDY: NON-PRS CHRONIC ULCER OTH PRT RIGHT FOOT W FAT LAYER EXPOSED L97.512 NON-PRS VOLUNTEER SPECIALIST [place]AK ULCER OTH PRT RIGHT FOOT W FAT LAYER L97.522 NON-PRS CHRONIC ULCER OTH PRT LEFT FOOT W FAT LAYER COMPARISON: None. NUMBER OF VIEWS: Three views. TECHNIQUE: AP, lateral and oblique radiographic images acquired of the right foot. LIMITATIONS: None. FINDINGS: MINERALIZATION: Normal. BONES: No acute fracture or dislocation. No worrisome bone lesions. JOINTS: Hallux valgus deformity and degenerative changes at the first metatarsophalangeal joint. As sociated bunion. Small well corticated ossific density adjacent to the tip of the medial malleoli us may be related prior remote trauma. Calcaneal spurs. SOFT TISSUES: A small well defined subcentimeter os ossific density in the soft tissues lateral to t he midfoot may be related prior remote injury. OTHER: No other significant finding. IMPRESSION: 1. Hallux valgus deformity and degenerative changes at the first metatarsophalangeal pritesh int. Associated bunion. 2. No acute osseous findings. 3. Calcaneal spurs. TECHNICAL DOCUMENTATION: JOB ID: [id number] [employer]- All Rights Reserved Reading location - IP/workstation name: [email or web address]
[2018-11-06 14:58] LABS: ERYTHROCYTE SEDIMENTATION RATE 23 mm/hr (0-20)
== END ==
LOC: WC 13:24
PROVIDERS: ATTEND Nurse Practitioner Family
DX: L97.512 Non-pressure chronic ulcer of other part of right foot with fat layer exposed (principal); L97.522 Non-pressure chronic ulcer of other part of left foot with fat layer exposed
CPT/HCPCS: 36415; 80053; 85025; 85652; 86140

== ENCOUNTER → 2018-12-14 | Outpatient (CLI) | payer MEDICARE ==
[2018-12-14 14:20] LABS: ABSOLUTE EOSINOPHILS # (AUTO) 0.1 10^3/uL (0.0-0.6); ABSOLUTE LYMPHOCYTES (AUTO) 1.6 10^3/uL (0.5-4.7); ABSOLUTE MONOCYTES (AUTO) 0.5 10^3/uL (0.1-1.4); ABSOLUTE NEUT (AUTO) 5.5 10^3/uL (1.7-8.2); BASOPHILS % (AUTO) 0.5 % (0-2); EOSINOPHILS % (AUTO) 1.7 % (0-6); HEMATOCRIT 40.2 % (37.9-51.0); HEMOGLOBIN 13.7 g/dL (13.5-17.0); LYMPHOCYTES % (AUTO) 20.7 % (13-45); MEAN CORPUSCULAR HEMOGLOBIN 27.9 pg (27.0-33.4); MEAN CORPUSCULAR HGB CONC 34.1 g/dL (32.0-36.0); MEAN CORPUSCULAR VOLUME 82 fl (80-97); MONOCYTES % (AUTO) 6.9 % (3-13); PLATELET COUNT 256 10^3/uL (150-450); RED BLOOD COUNT 4.91 10^6/uL (4.35-5.55); RED CELL DISTRIBUTION WIDTH 14.5 % (11.5-14.0); SEGMENTED NEUTROPHILS % (AUTO) 70.2 % (42-78); TOTAL CELLS COUNTED % (AUTO) 100 %; WHITE BLOOD COUNT 7.8 10^3/uL (4.0-10.5)
--- NOTE | 2018-12-14 14:42 | RADIOLOGY REPORT (SQ) ---
EXAM DESCRIPTION: FOOT LEFT COMPLETE COMPLETED DATE/TIME: 12/14/2018 2:03 pm REASON FOR STUDY: NON-PRESSURE CHRONIC ULCER OF OTHER PART OF LEFT FOOT E11.621 TYPE 2 DIABETES GOLD LITUS WITH FOOT ULCER L97.522 NON-PRS CHRONIC ULCER OTH PRT LEFT FOOT W FAT LAYER COMPARISON: 07/03/2018, 11/06/2018 NUMBER OF VIEWS: Three views. TECHNIQUE: AP, lateral and oblique radiographic images acquired of the left foot. LIMITATIONS: None. FINDINGS: MINERALIZATION: Normal. BONES: Old healed right proximal 5th metatarsal fracture. No acute fracture or malalignment. Small plantar calcaneal spur JOINTS: No effusions. SOFT TISSUES: No soft tissue swelling. No foreign body. Small soft tissue ulcer at the left ball of foot near the 1st metatarsophalangeal joint region OTHER: No other significant finding. IMPRESSION: No bony demineralization worrisome for osteomyelitis Old healed left 5th proximal metatarsal fracture TECHNICAL DOCUMENTATION: JOB ID: [id number] [employer]- All Rights Reserved Reading location - IP/workstation name: [email or web address]
[2018-12-14 14:47] LABS: ALANINE AMINOTRANSFERASE 19 U/L (21-72); ALBUMIN 4.1 g/dL (3.5-5.0); ALKALINE PHOSPHATASE 94 U/L (38-126); ANION GAP 13 (5-19); ASPARTATE AMINO TRANSFERASE 18 U/L (17-59); BILIRUBIN,DIRECT 0.3 mg/dL (0.0-0.4); BILIRUBIN,TOTAL 0.4 mg/dL (0.2-1.3); BLOOD UREA NITROGEN 22 mg/dL (7-20); CALCIUM 10.4 mg/dL (8.4-10.2); CARBON DIOXIDE 26 mmol/L (22-30); CHLORIDE 100 mmol/L (98-107); GLUCOSE 307 mg/dL (75-110); POTASSIUM 5.1 mmol/L (3.6-5.0); SODIUM 138.8 mmol/L (137-145); TOTAL PROTEIN 7.3 g/dL (6.3-8.2)
[2018-12-14 15:05] LABS: ERYTHROCYTE SEDIMENTATION RATE 35 mm/hr (0-20)
== END ==
LOC: WC 13:32
PROVIDERS: ATTEND Nurse Practitioner Family
DX: E11.621 Type 2 diabetes mellitus with foot ulcer (principal); L97.522 Non-pressure chronic ulcer of other part of left foot with fat layer exposed
CPT/HCPCS: 36415; 80053; 83036; 85025; 85652; 86140

== ENCOUNTER 2019-02-08 08:06 | Day surgery (SDC) | payer OTHER, MEDICARE ==
[~2019-02-08 08:06] MED LIST: CHONDR SU A NA/HYALUR INTRAOC KIT (SURGICARE) ONE; EPINEPHRINE INJ/PF 1 MG/1 ML AMPULE ONE; KETOROLAC TROMETHAMINE 0.45% 4 DROP/0.4 ML DROPERETTE OD PRN; LIDOCAINE 1%/PHENYLEPHRINE 1.5% 1 ML VIAL ONE
[2019-02-08] MEDS: TETRACAINE HCL 0.5% OPH SOLN 4 ML OD PRN ×3 (08:55→09:20)
[2019-02-08] MEDS: CYCLOPENTOLATE 0.2%/PHENYLEPHRINE 1% OPH SOLN 2 ML OD PRN ×3 (08:56→09:19)
[2019-02-08] MEDS: TROPICAMIDE 1% OPH SOLN 3 ML OD PRN ×3 (08:56→09:19)
[2019-02-08] MEDS: BESIFLOXACIN HCL 0.6% OPH SUSP 5 ML BOTTLE OD PRN ×4 (08:56→09:41)
[2019-02-08] MEDS ORDERED: MIDAZOLAM 2 MG/2 ML INJ ONE (09:22)
[2019-02-08] MEDS: DORZOLAMIDE HCL 2%/TIMOLOL MALEAT 0.5% OPH SOLN 10 ML OD PRN ×2 (09:41)
--- NOTE | 2019-02-08 22:11 | [facility] OPERATIVE REPORT E ---
[facility] Operative Report NAME: SARAH MARIN AGE: 63Y DATE OF SURGERY: 02/08/2019 ROOM: PREOPERATIVE DIAGNOSIS: CATARACT, RIGHT EYE. POSTOPERATIVE DIAGNOSIS: CATARACT, RIGHT EYE. OPERATION: Cataract extraction with insertion of an IOL of the right eye. SURGEON: ERIC NICE M.D. ANESTHESIA: Topical. PROCEDURE: After obtaining appropriate consent, the patient's right eye was prepped and draped in sterile fashion as well as the surgeon in a sterile manner and cataract surgery was started. First a paracentesis blade was used to make a side-port incision. Viscoelastic was used to inflate the anterior chamber. Next a 2.4 mm incision was made with a 2.4 mm blade, clear corneal temporally. A continuous capsulorrhexis was made using a cystotome and Utrata forceps. Following this hydrodissection was carried out to make the lens fully loose and mobile and it was rotated 90 degrees. Following this, a gtdlcc-snj-otrrumz technique was used to phacoemulsify the lens with a CDE of 7.33. The remaining cortex was removed with irrigation/aspiration. Provisc was instilled into the capsular bag to inflate the bag. A SN60WF, 16.0 diopter lens was placed. The remaining viscoelastic material was removed with irrigation/aspiration. Following this, the incision was found to be watertight. Besivance was instilled into the eye and a protective shield was placed over the eye. The patient returned to the postoperative recovery in stable condition. DICTATING PHYSICIAN: ERIC NICE M.D. [id number] PHY#: [id number] ID: [id number] JOB#: [id number] ACCT: [id number] cc:ERIC NICE M.D. >
--- NOTE | 2019-02-08 22:11 | [facility] DISCHARGE SUMMARY E ---
[facility] Discharge Summary NAME: SARAH MARIN AGE: 63Y ADMITTED: 02/08/2019 DISCHARGED: 02/08/2019 HOSPITAL COURSE: This is a 63-year-old patient who underwent cataract extraction of the right eye. DIAGNOSIS: CATARACT, RIGHT EYE. He underwent surgery because he was having difficulty seeing the television. DISCHARGE INSTRUCTIONS: She should be on a regular diet. No bending at his waist, no heavy lifting. He should use his Vigamox, Ketorolac, and Predforte at 3 p.m. and 8 p.m. and sleep with a rigid shield. I will see him for his 1 day postoperative tomorrow. DICTATING PHYSICIAN: ERIC NICE M.D. [id number] Y#: [id number] ID: [id number] JOB#: [id number] ACCT: [id number] cc:ERIC NICE M.D. >
== END 2019-02-08 10:26 | disposition home or self-care (01) ==
LOC: SC 08:06
PROVIDERS: ATTEND Internal Medicine
DX: H25.811 Combined forms of age-related cataract, right eye (principal); Z79.01 Long term (current) use of anticoagulants; I10 Essential (primary) hypertension; Z79.899 Other long term (current) drug therapy; Z86.73 Personal history of transient ischemic attack (TIA), and cerebral infarction without residual deficits; E11.9 Type 2 diabetes mellitus without complications; Z79.84 Long term (current) use of oral hypoglycemic drugs; Z79.4 Long term (current) use of insulin; E07.9 Disorder of thyroid, unspecified
CPT/HCPCS: 66984; 82962; J2250; J3490 ×2; J0171; J2370; 142; V2632

== ENCOUNTER 2019-03-15 07:31 | Day surgery (SDC) | payer OTHER, MEDICARE ==
[~2019-03-15 07:31] MED LIST changes: -CHONDR SU A NA/HYALUR INTRAOC KIT (SURGICARE) ONE; -EPINEPHRINE INJ/PF 1 MG/1 ML AMPULE ONE; -KETOROLAC TROMETHAMINE 0.45% 4 DROP/0.4 ML DROPERETTE OD PRN; +KETOROLAC TROMETHAMINE 0.45% 4 DROP/0.4 ML DROPERETTE OS PRN; -LIDOCAINE 1%/PHENYLEPHRINE 1.5% 1 ML VIAL ONE
[2019-03-15] MEDS: CYCLOPENTOLATE 0.2%/PHENYLEPHRINE 1% OPH SOLN 2 ML OS PRN ×3 (08:10→08:30)
[2019-03-15] MEDS: BESIFLOXACIN HCL 0.6% OPH SUSP 5 ML BOTTLE OS PRN ×4 (08:10→09:04)
[2019-03-15] MEDS: TETRACAINE HCL 0.5% OPH SOLN 4 ML OS PRN ×4 (08:10→08:44)
[2019-03-15] MEDS: TROPICAMIDE 1% OPH SOLN 3 ML OS PRN ×3 (08:10→08:30)
[2019-03-15] MEDS ORDERED: MIDAZOLAM 2 MG/2 ML INJ ONE (08:17)
[2019-03-15] MEDS: EPINEPHRINE INJ/PF 1 MG/1 ML AMPULE ONE ×2 (08:54)
[2019-03-15] MEDS: LIDOCAINE 1%/PHENYLEPHRINE 1.5% 1 ML VIAL ONE ×2 (08:54)
[2019-03-15] MEDS: CHONDR SU A NA/HYALUR INTRAOC KIT (SURGICARE) ONE ×2 (08:54)
[2019-03-15] MEDS: DORZOLAMIDE HCL 2%/TIMOLOL MALEAT 0.5% OPH SOLN 10 ML OS PRN ×2 (09:04)
--- NOTE | 2019-03-15 13:11 | Operative Report ---
Operative Report-[facility] Operative Report: DATE OF SURGERY:2018 PREOPERATIVE DIAGNOSIS: Cataracts, left eye POSTOPERATIVE DIAGNOSIS: Cataract, left eye OPERATION: Cataract extraction with insertion of an IOL of the left eye. Intraocular Lens Model: [16.5 sn60wf] pt had trouble seeing tv. SURGEON: Shakir Roberts MD ANESTHESIA: Topical PROCEDURE: After obtaining appropriate consent, the patient's left eye was prepped and draped in a sterile fashion as well as the surgeon in the sterile manner and cataract surgery was started. First a paracentesis blade was used to make a side-port incision. Viscoelastic was used to inflate the anterior chamber. Next a 2.4 mm incision was made with a 2.4 mm blade, clear corneal temporarily. A continuous capsulorrhexis was made using a cystotome and Utrata forceps. Following this hydrodissection was carried out to make commands fully loose and mobile and it was rotated 90 degrees. Following this, a divide and conquer technique was used to phacoemulsify the lens. The remaining cortex was removed with an irrigation/aspiration. Provisc was instilled into the capsular bag to inflate the bag.The intracular lens was placed. The remaining viscoelastic material was removed with irrigation/aspiration. Following this, the incision was found to be watertight. Besivance and Cosopt was instilled into the eye and a protective shield was placed over the eye. The patient was turned to the postoperative recovery in a stable condition.
== END 2019-03-15 09:45 | disposition home or self-care (01) ==
LOC: SC 07:31
PROVIDERS: ATTEND Internal Medicine
DX: H25.12 Age-related nuclear cataract, left eye (principal); Z96.1 Presence of intraocular lens; Z79.02 Long term (current) use of antithrombotics/antiplatelets; I10 Essential (primary) hypertension; E11.9 Type 2 diabetes mellitus without complications; Z79.84 Long term (current) use of oral hypoglycemic drugs; E07.9 Disorder of thyroid, unspecified; Z79.899 Other long term (current) drug therapy; Z79.4 Long term (current) use of insulin
CPT/HCPCS: 66984; 82962; 00142; V2632; J2250; J3490 ×2; J0171; J2370; 142

== ENCOUNTER 2019-07-11 23:41 | Emergency (ER) | payer OTHER, MEDICARE ==
[~2019-07-11 23:41] MED LIST changes: -KETOROLAC TROMETHAMINE 0.45% 4 DROP/0.4 ML DROPERETTE OS PRN; +TENECTEPLASE INJ 50 MG KIT IV ONE
[2019-07-12] MEDS ORDERED: ASPIRIN 81 MG TABLET, CHEWABLE PO ONE (00:50)
[2019-07-12] MEDS ORDERED: HEPARIN SOD (PORCINE) 1,000 UNIT/ML 10 ML VIAL IV ONE (00:51)
[2019-07-12 00:53] LABS: ABSOLUTE BASOPHILS # (AUTO) 0.1 10^3/uL (0.0-0.2); ABSOLUTE LYMPHOCYTES (AUTO) 2.2 10^3/uL (0.5-4.7); ABSOLUTE MONOCYTES (AUTO) 1.3 10^3/uL (0.1-1.4); ABSOLUTE NEUT (AUTO) 11.1 10^3/uL (1.7-8.2); BASOPHILS % (AUTO) 0.5 % (0-2); EOSINOPHILS % (AUTO) 0.1 % (0-6); HEMATOCRIT 36.1 % (37.9-51.0); HEMOGLOBIN 12.3 g/dL (13.5-17.0); LYMPHOCYTES % (AUTO) 14.8 % (13-45); MEAN CORPUSCULAR HEMOGLOBIN 28.6 pg (27.0-33.4); MEAN CORPUSCULAR VOLUME 84 fl (80-97); MONOCYTES % (AUTO) 8.6 % (3-13); PLATELET COUNT 203 10^3/uL (150-450); RED BLOOD COUNT 4.29 10^6/uL (4.35-5.55); RED CELL DISTRIBUTION WIDTH 14.2 % (11.5-14.0); TOTAL CELLS COUNTED % (AUTO) 100 %; WHITE BLOOD COUNT 14.6 10^3/uL (4.0-10.5)
[2019-07-12] MEDS ORDERED: NORMAL SALINE 1000 ML 1,000 ML IV ONE (00:54)
[2019-07-12] MEDS ORDERED: ACETAMINOPHEN 325 MG TABLET PO ONE (00:57)
--- NOTE | 2019-07-12 00:59 | ER Document Report ---
ED General - General Chief Complaint: Chest Pain Stated Complaint: CHEST PAIN/SHORT OF BREATH Time Seen by Provider: 07/12/19 00:40 Primary Care Provider: ELLIS SANZ [NO LOCAL MD] - Follow up as needed TRAVEL OUTSIDE OF THE [place] IN LAST 30 DAYS: No - HPI Notes: This is a 64-year-old gentleman who presents with a complaint of substernal chest pain, shortness of breath, and "pain everywhere for the past 2 days. Patient states that his chest pain has been essentially constant but he wanted to spend [place] with his family so he did not want to come to the ED. Pain increased today so he decided to come after [place] dinner. He states he also had some hip pain earlier. He took some Percocet earlier and his pain is now resolved. He does have some slight shortness of breath. He denies chest pain at this time. He describes symptoms as mild. - Related Data Allergies/Adverse Reactions: Penicillins Allergy (Intermediate, Verified 03/09/19 10:50) Rash ampicillin Allergy (Verified 03/09/19 10:50) Home Medications: bp low, pt st to rm Past Medical History - Social History Smoking Status: Never Smoker Family History: Arthritis, CAD, Other - Heart problems (valvular disease) Patient has suicidal ideation: No Patient has homicidal ideation: No - Past Medical History Cardiac Medical History: Reports: Hx Hypercholesterolemia, Hx Hypertension Denies: Hx Congestive Heart Failure, Hx Heart Attack Pulmonary Medical History: Reports: Hx Pneumonia Denies: Hx Asthma, Hx Bronchitis, Hx COPD, Hx Tuberculosis Neurological Medical History: Reports: Hx Cerebrovascular Accident - Left-sided brainstem infarct to 08/20/2013 X2 AND 09/2018. Denies: Hx Seizures, Hx Park inson's Disease Endocrine Medical History: Reports: Hx Diabetes Mellitus Type 2, Hx Hypothyroidism Renal/ Medical History: Reports: Hx Kidney Stones. Denies: Hx Benign Prostatic Hyperplasia, Hx End Stage Renal Disease, Hx Peritoneal Dialysis GI Medical History: Denies: Hx Cirrhosis, Hx Gastroesophageal Reflux Disease, Hx Hepatitis, Hx Hiatal Hernia, Hx Ulcer Musculoskeletal Medical History: Denies Hx Arthritis, Denies Hx Gout, Denies Hx Multiple Sclerosis Skin Medical History: Denies Hx Eczema, Denies Hx Psoriasis Psychiatric Medical History: Reports: Hx Depression - occasional Denies: Hx Bipolar Disorder, Hx Schizophrenia Infectious Medical History: Reports: Hx MRSA. Denies: Hx Hepatitis Past Surgical History: Reports: Hx Cardiac Catheterization, Hx Orthopedic Surgery - carpel tunnel release. Denies: Hx Open Heart Surgery, Hx Pacemaker - Immunizations Hx Diphtheria, Pertussis, Tetanus Vaccination: No Review of Systems - Review of Systems Cardiovascular: Chest pain. denies: Palpitations Respiratory: Short of breath. denies: Cough -: Yes All other systems reviewed and negative Physical Exam - Vital signs Vitals: Temp Pulse BP Pulse Ox 100.5 F H 76 87/49 L 95 07/11/19 23:59 07/11/19 23:59 07/11/19 23:59 07/11/19 23:59 - General General appearance: Appears well, Alert - HEENT Head: Normocephalic, Atraumatic Eyes: Normal Pupils: PERRL - Respiratory Respiratory status: No respiratory distress Chest status: Nontender Breath sounds: Normal Chest palpation: Normal - Cardiovascular Rhythm: Regular Heart sounds: Normal auscultation Murmur: No - Abdominal Inspection: Normal Distension: No distension Bowel sounds: Normal Tenderness: Nontender Organomegaly: No organomegaly - Extremities General upper extremity: Nontender. No: Edema General lower extremity: Nontender. No: Edema - Neurological Neuro grossly intact: Yes Cognition: Normal Orientation: AAOx4 Heather Coma Scale Eye Opening: Spontaneous Heather Coma Scale Verbal: Oriented Heather Coma Scale Motor: Obeys Commands Bowler Coma Scale Total: 15 Speech: Normal Motor strength normal: LUE, RUE, LLE, RLE Sensory: Normal Course - Re-evaluation Re-evalutation: 07/12/19 00:58 Clinical picture is highly concerning for acute coronary syndrome. Differential diagnosis also includes nonspecific chest pain versus pneumonia. Initial EKG shows normal sinus rhythm at 72 bpm. Minimal elevation in aVL and slight depression in 2 and aVF. Repeat EKG shows some changes from the initial EKG. There is no longer any elevation in aVL. Depression in inferior leads is now resolved but every appears to be Q waves in the inferior leads and slight ST elevation in 3 and aVF. Patient's dynamic EKG changes and symptoms are concerning for evolving AK. Call placed to interventional cardiology at [facility]. He is currently pain- free. Aspirin and heparin ordered. 07/12/19 01:25 Given dynamic EKG changes, STEMI alert activated. Patient's care discussed with Dr. De Los Santos at [facility]. He agrees with thrombolytics and pressors. Patient is pain-free. Is hypotensive. Will start dopamine. 07/12/19 02:05 Patient started having chest pain and headache. Repeat EKG is unchanged from the second EKG. Fentanyl given his pain.. Blood pressure improved with dopamine. Stat head CT scan done. I do not see any obvious acute hemorrhage. Transport team is here. Patient is stable for transfer. Blood pressure improved on dopamine. - Vital Signs Vital signs: Temp Pulse Resp BP Pulse Ox 100.5 F H 76 87/49 L 95 07/11/19 23:59 07/11/19 23:59 07/11/19 23:59 07/11/19 23:59 - Laboratory Result Diagrams: 07/12/19 00:35 07/12/19 00:35 Laboratory results interpreted by me: 07/12/19 07/12/19 07/12/19 00:35 00:35 00:35 WBC 14.6 H RBC 4.29 L Hgb 12.3 L Hct 36.1 L RDW 14.2 H Absolute Neuts (auto) 11.1 H PT APTT Sodium 133.6 L Potassium 3.1 L Chloride 93 L Carbon Dioxide 31 H BUN 29 H Creatinine 1.50 H Est GFR ( Amer) 57 L Est GFR (MDRD) Non-Af 47 L Glucose 224 H AST 110 H Creatine Kinase 461 H CK-MB (CK-2) 12.60 H Albumin 3.3 L 07/12/19 00:35 WBC RBC Hgb Hct RDW Absolute Neuts (auto) PT 15.5 H APTT 43.8 H Sodium Potassium Chloride Carbon Dioxide BUN Creatinine Est GFR ( Amer) Est GFR (MDRD) Non-Af Glucose AST Creatine Kinase CK-MB (CK-2) Albumin Critical Care Note - Critical Care Note Total time excluding time spent on procedures (mins): 60 Discharge - Discharge Clinical Impression: STEMI (ST elevation myocardial infarction) Qualifiers: Involved coronary artery: unspecified coronary artery Qualified Code(s): I21.3 - ST elevation (STEMI) myocardial infarction of unspecified site Condition: Critical Disposition: [facility]errals: [facility] [NO LOCAL MD] - Follow up as needed
[2019-07-12 01:07] LABS: ALBUMIN 3.3 g/dL (3.5-5.0); ALKALINE PHOSPHATASE 73 U/L (38-126); ANION GAP 10 (5-19); ASPARTATE AMINO TRANSFERASE 110 U/L (17-59); BILIRUBIN,DIRECT 0.1 mg/dL (0.0-0.4); BILIRUBIN,TOTAL 0.6 mg/dL (0.2-1.3); BLOOD UREA NITROGEN 29 mg/dL (7-20); CALCIUM 8.7 mg/dL (8.4-10.2); CARBON DIOXIDE 31 mmol/L (22-30); CHLORIDE 93 mmol/L (98-107); CREATINE KINASE 461 U/L (55-170); GLUCOSE 224 mg/dL (75-110); POTASSIUM 3.1 mmol/L (3.6-5.0); TOTAL PROTEIN 6.3 g/dL (6.3-8.2)
[2019-07-12 01:18] LABS: CREATINE KINASE MB 12.6 ng/mL (<4.55)
[2019-07-12] MEDS ORDERED: DOPAMINE HCL/DEXTROSE 5%-WATER 800 MG/250 ML RTUINJ IV PRN (01:20)
[2019-07-12] MEDS ORDERED: DOPAMINE HCL/DEXTROSE 5%-WATER 800 MG/250 ML RTUINJ IV ONE (01:21)
[2019-07-12 01:22] LABS: INTERNATIONAL RATION (INR) 1.22; PROTHROMBIN TIME 15.5 SEC (11.4-15.4)
[2019-07-12 01:23] LABS: PARTIAL THROMBOPLASTIN TIME 43.8 SEC (23.5-35.8)
[2019-07-12 01:24] LABS: TROPONIN I 18.6 ng/mL
[2019-07-12] MEDS ORDERED: HEPARIN SODIUM,PORCINE/D5W 25,000 UNIT/250 ML RTUINJ IV PRN (01:24)
--- NOTE | 2019-07-12 01:32 | RADIOLOGY REPORT (SQ) ---
EXAM DESCRIPTION: XR CHEST 1 VIEW COMPLETED DATE/TME: 07/12/2019 00:50 CLINICAL HISTORY: 64 years, Male, chest pain COMPARISON: 07/03/2018 chest x-ray NUMBER OF VIEWS: 1 TECHNIQUE: Portable chest LIMITATIONS: None. FINDINGS: Cardiomegaly. No pneumothorax. Subsegmental atelectasis left lung base IMPRESSION: Cardiomegaly. Subsegmental atelectasis left lung base copyright 2010 [employer]- All Rights Reserved
[2019-07-12] MEDS ORDERED: FENTANYL CITRATE INJ/PF 100 MCG/2 ML AMPUL ONE (01:52)
[2019-07-12] MEDS ORDERED: FENTANYL CITRATE INJ/PF 100 MCG/2 ML AMPUL IV STA ×2 (02:25)
--- NOTE | 2019-07-12 02:37 | RADIOLOGY REPORT (SQ) ---
EXAM DESCRIPTION: CT HEAD WITHOUT IV CONTRAST COMPLETED DATE/TME: 07/12/2019 00:00 CLINICAL HISTORY: 64 years, Male, HEADACHE AFTER LYTICS COMPARISON: 10/09/2018 CT TECHNIQUE: 216 Images stored on PACS. All CT scanners at this facility use dose modulation, iterative reconstruction, and/or weight based dosing when appropriate to reduce radiation dose to as low as reasonably achievable (ALARA). [facility]: Dose Right [facility]: CareDose [facility]: Dose Right [facility]: Teradose 4D [facility]: [employer] LIMITATIONS: None. FINDINGS: The globes are intact. The paranasal sinuses and mastoid air cells are unremarkable. No displaced or depressed skull fracture. There is no intra or extra-axial hemorrhage. CT is limited for evaluation of acute infarct. No CT evidence for large or territorial acute infarct. Age-appropriate atrophy with minor small vessel ischemic change. Remote lacunar infarct left basal ganglia. IMPRESSION: Remote lacunar infarct left basal ganglia. Mild atrophy. Minor small vessel ischemic change TECHNICAL DOCUMENTATION: Quality ID # [id number]: Final reports with documentation of one or more dose reduction techniques (e.g., Automated exposure control, adjustment of the mA and/or kV according to patient size, use of iterative reconstruction technique) copyright 2010 [employer]- All Rights Reserved
[2019-07-12 06:59] VITALS: BP 88/52
--- NOTE | 2019-07-12 16:23 | EKG REPORT ---
SEVERITY:- ABNORMAL ECG - SINUS RHYTHM INFERIOR INFARCT, AGE INDETERMINATE CONSIDER POSTERIOR WALL INVOLVEMENT : Confirmed by: Sybil Ordaz MD 12-Jul-2019 16:23:08
--- NOTE | 2019-07-12 16:23 | EKG REPORT ---
SEVERITY:- ABNORMAL ECG - SINUS RHYTHM INFERIOR INFARCT, AGE INDETERMINATE PROBABLE POSTERIOR INFARCT : Confirmed by: Sybil Ordaz MD 12-Jul-2019 16:23:11
--- NOTE | 2019-07-12 16:24 | EKG REPORT ---
SEVERITY:- ABNORMAL ECG - SINUS RHYTHM : Confirmed by: Sybil Ordaz MD 12-Jul-2019 16:23:42
== END 2019-07-12 02:15 | disposition short-term general hospital (02) ==
LOC: ER 23:41
DX: I21.3 ST elevation (STEMI) myocardial infarction of unspecified site (principal); I10 Essential (primary) hypertension; E11.9 Type 2 diabetes mellitus without complications; R07.2 Precordial pain; R06.02 Shortness of breath; R51 Headache
CPT/HCPCS: 93005 ×2; 99291; 96375; 96365; 36415; 82553; 82550; 85025; 85610; 85730; 80053; 84484; 71045; 70450; 93010 ×2; J3101; J1644 ×2; J1265; J3010; J7030

== ENCOUNTER 2019-09-07 20:57 | Inpatient (IN) | payer OTHER, MEDICARE ==
--- NOTE | 2019-09-07 21:22 | ER Document Report ---
ED Medical Screen (RME) - General Chief Complaint: Shortness Of Breath Stated Complaint: SHORTNESS OF BREATH Time Seen by Provider: 09/07/19 21:19 TRAVEL OUTSIDE OF THE [place] IN LAST 30 DAYS: No - HPI Notes: 09/07/19 21:21 Patient is a 64-year-old male with a history of quadruple bypass July 16 presents complaining of feeling shortness of breath since yesterday. Patient states that he does have some sternal chest pain, but states that that has been there since the surgery. He is able to eat and drink without difficulty. He is urinating normally and having normal bowel movements. No fever. No URI symptoms. I have treated and performed a rapid initial assessment of this patient. A comprehensive ED assessment and evaluation of the patient, analysis of test results and completion of medical decision making process will be conducted by additional ED providers. PHYSICAL EXAMINATION: GENERAL: Well-appearing, well-nourished and in no acute distress. A&Ox4. Answers questions appropriately. Heart: RRR Lungs: possible mild scant wheeze b/l base. no retractions Ext's: trace edema b/l - Related Data Allergies/Adverse Reactions: Penicillins Allergy (Intermediate, Verified 03/09/19 10:50) Rash ampicillin Allergy (Verified 03/09/19 10:50) Past Medical History - Past Medical History Cardiac Medical History: Reports: Hx Hypercholesterolemia, Hx Hypertension Denies: Hx Congestive Heart Failure, Hx Heart Attack Pulmonary Medical History: Reports: Hx Pneumonia Denies: Hx Asthma, Hx Bronchitis, Hx COPD, Hx Tuberculosis Neurological Medical History: Reports: Hx Cerebrovascular Accident - Left-sided brainstem infarct to 08/20/2013 X2 AND 09/2018. Denies: Hx Seizures, Hx Parkinson's Disease Endocrine Medical History: Reports: Hx Diabetes Mellitus Type 2, Hx Hypothyroidism Renal/ Medical History: Reports: Hx Kidney Stones. Denies: Hx Benign Prostatic Hyperplasia, Hx End Stage Renal Disease, Hx Peritoneal Dialysis GI Medical History: Denies: Hx Cirrhosis, Hx Gastroesophageal Reflux Disease, Hx Hepatitis, Hx Hiatal Hernia, Hx Ulcer Musculoskeltal Medical History: Denies Hx Arthritis, Denies Hx Gout, Denies Hx Multiple Sclerosis Skin Medical History: Denies Hx Eczema, Denies Hx Psoriasis Psychiatric Medical History: Reports: Hx Depression - occasional Denies: Hx Bipolar Disorder, Hx Schizophrenia Infectious Medical History: Reports: Hx MRSA. Denies: Hx Hepatitis Past Surgical History: Reports: Hx Cardiac Catheterization, Hx Orthopedic Surgery - carpel tunnel release. Denies: Hx Open Heart Surgery, Hx Pacemaker - Immunizations Hx Diphtheria, Pertussis, Tetanus Vaccination: No Physical Exam - Vital signs Vitals: Temp Pulse Resp BP Pulse Ox 97.5 F 100 20 152/102 H 97 09/07/19 21:08 09/07/19 21:08 09/07/19 21:08 09/07/19 21:08 09/07/19 21:08 Course - Vital Signs Vital signs: Temp Pulse Resp BP Pulse Ox 97.5 F 100 20 152/102 H 97 09/07/19 21:08 09/07/19 21:08 09/07/19 21:08 09/07/19 21:08 09/07/19 21:08
[2019-09-07] MEDS ORDERED: ASPIRIN 81 MG TABLET, CHEWABLE PO ONE (21:24)
--- NOTE | 2019-09-07 22:04 | ER Document Report ---
ED General - General Chief Complaint: Shortness Of Breath Stated Complaint: SHORTNESS OF BREATH Time Seen by Provider: 09/07/19 21:19 Notes: Patient is a 64-year-old male that comes emergency department for chief complaint of cough, congestion, wheezing, shortness of breath. He states he has felt this way for the past 3 days. He denies fever, he does report some tightness in the center of the chest with cough and pain over the scar from his CABG that he had in June at [place] but he denies chest pain otherwise. He denies vomiting, diarrhea, abdominal pain. He denies smoking, asthma, COPD, and CHF. He is not on a diuretic. He has a complicated medical history in addition to CABG including hypertension, hyperlipidemia, CVA x3 with no neurological deficits, insulin-dependent type 2 diabetes. [facility] 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 TRAVEL OUTSIDE OF THE [place] IN LAST 30 DAYS: No - Related Data Allergies/Adverse Reactions: Penicillins Allergy (Intermediate, Verified 03/09/19 10:50) Rash ampicillin Allergy (Verified 03/09/19 10:50) Home Medications: levothyroxine 150 mcg qday. metformin 1000 mg bid. metoprolol qday. plavix 75 mg qday. lyrica 150 mg bid --neuropathy. duloxetine bid. glipizide bid. atorvastatin qpm. melatonin 20 mg qhs. lantus 30 units qpm Past Medical History - General Information source: Patient - Social History Smoking Status: Never Smoker Frequency of alcohol use: None Drug Abuse: None Lives with: Family Family History: Arthritis, CAD, Other - Heart problems (valvular disease) Patient has suicidal ideation: No Patient has homicidal ideation: No - Past Medical History Cardiac Medical History: Reports: Hx Hypercholesterolemia, Hx Hypertension Denies: Hx Congestive Heart Failure, Hx Heart Attack Pulmonary Medical History: Reports: Hx Pneumonia Denies: Hx Asthma, Hx Bronchitis, Hx COPD, Hx Tuberculosis Neurological Medical History: Reports: Hx Cerebrovascular Accident - Left-sided brainstem infarct to 08/20/2013 X2 AND 09/2018. Denies: Hx Seizures, Hx Parkinson's Disease Endocrine Medical History: Reports: Hx Diabetes Mellitus Type 2, Hx Hypothyroidism Renal/ Medical History: Reports: Hx Kidney Stones. Denies: Hx Benign P rostatic Hyperplasia, Hx End Stage Renal Disease, Hx Peritoneal Dialysis GI Medical History: Denies: Hx Cirrhosis, Hx Gastroesophageal Reflux Disease, Hx Hepatitis, Hx Hiatal Hernia, Hx Ulcer Musculoskeletal Medical History: Denies Hx Arthritis, Denies Hx Gout, Denies Hx Multiple Sclerosis Skin Medical History: Denies Hx Eczema, Denies Hx Psoriasis Psychiatric Medical History: Reports: Hx Depression - occasional Denies: Hx Bipolar Disorder, Hx Schizophrenia Infectious Medical History: Reports: Hx MRSA. Denies: Hx Hepatitis Past Surgical History: Reports: Hx Cardiac Catheterization, Hx Orthopedic Surgery - carpel tunnel release. Denies: Hx Open Heart Surgery, Hx Pacemaker - Immunizations Hx Diphtheria, Pertussis, Tetanus Vaccination: No Review of Systems - Review of Systems Constitutional: No symptoms reported EENT: No symptoms reported Cardiovascular: See HPI Respiratory: No symptoms reported Gastrointestinal: No symptoms reported Genitourinary: No symptoms reported Male Genitourinary: No symptoms reported Musculoskeletal: No symptoms reported Skin: No symptoms reported Hematologic/Lymphatic: No symptoms reported Neurological/Psychological: No symptoms reported Physical Exam - Vital signs Vitals: Temp Pulse Resp BP Pulse Ox 97.5 F 100 20 152/102 H 97 09/07/19 21:08 09/07/19 21:08 09/07/19 21:08 09/07/19 21:08 09/07/19 21:08 - Notes Notes: GENERAL: Mild distress with shortness of breath HEAD: Normocephalic, atraumatic. EYES: Pupils equal, round, and reactive to light. Extraocular movements intact. ENT: Oral mucosa moist, tongue midline. Oropharynx unremarkable. Airway patent. Nares patent, no nasal septal hematoma NECK: Full range of motion. Supple. Trachea midline. LUNGS: Scattered expiratory wheezes, tachypnea, has trouble speaking in full sentences. Midline chest scar. HEART: Regular rate and rhythm. No murmur ABDOMEN: Soft, non-tender. Non-distended. EXTREMITIES: Moves all 4 extremities spontaneously. No edema, normal radial and dorsalis pedis pulses bilaterally. No cyanosis. BACK: no cervical, thoracic, lumbar midline tenderness. No saddle anesthesia, normal distal neurovascular exam. NEUROLOGICAL: Alert and oriented x3. Normal speech. Cranial nerves II through XII grossly intact. PSYCH: Normal affect, normal mood. SKIN: Warm, dry, normal turgor. No rashes or lesions noted. Course - Re-evaluation Re-evalutation: Initially patient with tachypnea, has trouble speaking in full sentences, has expiratory wheezes scattered throughout. No history of COPD or asthma, denies smoking history. He has borderline lower extremity edema. Is not hypoxic. Patient was placed on oxygen and given a DuoNeb. Work-up pending. On reevaluation he states he feels much better, his wheezing has almost completely resolved. I suspect a bronchitis component. CBC unremarkable, chemistry nonspecific. Troponin indeterminate. BNP is actually almost 4000, omega caldwell does have some vascular congestion and trace pleural effusions. Patient denies any congestive heart failure history. I did check his home medications and he is not on any diuretics. Patient still has notable dyspnea on exertion as well and is much more comfortable on oxygen. Discussed with Dr. Romero. Because of patient's new onset heart failure, dyspnea on exertion, patient will be admitted to the hospitalist. He recommends that patient can be given his Midorin and only low-dose Lasix because of his history of hypotension. I discussed with patient, patient states understanding and agreement with admission. Discussed with Dr. Bonilla, hospitalist, patient excepted to full admission to the medical floor. - Vital Signs Vital signs: Temp Pulse Resp BP Pulse Ox 97.7 F 100 23 H 150/89 H 97 09/08/19 02:01 09/07/19 21:08 09/08/19 02:01 09/08/19 02:01 09/08/19 02:01 - Laboratory Result Diagrams: 09/07/19 22:30 09/07/19 22:30 Laboratory results interpreted by me: 09/07/19 09/07/19 09/07/19 22:30 22:30 22:30 Hgb 12.1 L Hct 37.0 L MCV 78 L MCH 25.7 L RDW 16.3 H BUN 21 H Glucose 221 H NT-Pro-B Natriuret Pep 3880 H Total Protein 8.7 H - Diagnostic Test Radiology results interpreted by me: EKG shows sinus rhythm at a rate of 98, there are inferior Q waves in consecutive leads. QTC of 491. No T wave inversions or ST segment changes in consecutive leads, borderline T wave inversions in V6. Discharge - Discharge Clinical Impression: New onset of congestive heart failure, Shortness of breath, Wheezing, Dyspnea on exertion Condition: Stable Disposition: ADMITTED INPATIENT Admitting Provider: Chad (Hospitalist) Unit Admitted: Medical Floor
--- NOTE | 2019-09-07 22:11 | RADIOLOGY REPORT (SQ) ---
EXAM DESCRIPTION: PA and lateral radiographs of the chest. CLINICAL HISTORY: 64 years Male, SHORTNESS OF BREATH COMPARISON: AP portable chest radiograph 07/12/2019 FINDINGS: Lungs: Blunting of the costophrenic angles is consistent with small pleural effusions. There is upper lobe vessel distention and recruitment with mild indistinctness of the peripheral pulmonary vascularity. Overall lung volumes have improved when compared to the previous exam. No pneumothorax. Mediastinum: Heart size is enlarged. Mediastinum is widened. Bones: Postoperative change of sternotomy. IMPRESSION: Cardiomegaly with mild changes of pulmonary edema and small bilateral pleural effusions.
[2019-09-07 22:42] LABS: ABSOLUTE BASOPHILS # (AUTO) 0.1 10^3/uL (0.0-0.2); ABSOLUTE EOSINOPHILS # (AUTO) 0.1 10^3/uL (0.0-0.6); ABSOLUTE MONOCYTES (AUTO) 0.8 10^3/uL (0.1-1.4); ABSOLUTE NEUT (AUTO) 7.1 10^3/uL (1.7-8.2); BASOPHILS % (AUTO) 1.3 % (0-2); EOSINOPHILS % (AUTO) 1.4 % (0-6); HEMOGLOBIN 12.1 g/dL (13.5-17.0); LYMPHOCYTES % (AUTO) 19.9 % (13-45); MEAN CORPUSCULAR HEMOGLOBIN 25.7 pg (27.0-33.4); MEAN CORPUSCULAR HGB CONC 32.8 g/dL (32.0-36.0); MEAN CORPUSCULAR VOLUME 78 fl (80-97); MONOCYTES % (AUTO) 7.9 % (3-13); PLATELET COUNT 280 10^3/uL (150-450); RED BLOOD COUNT 4.72 10^6/uL (4.35-5.55); RED CELL DISTRIBUTION WIDTH 16.3 % (11.5-14.0); SEGMENTED NEUTROPHILS % (AUTO) 69.5 % (42-78); TOTAL CELLS COUNTED % (AUTO) 100 %; WHITE BLOOD COUNT 10.2 10^3/uL (4.0-10.5)
[2019-09-07] MEDS ORDERED: IPRATROPIUM/ALBUTEROL 0.5-2.5 MG/3 ML AMPUL NEB ONE (22:57)
[2019-09-07 23:17] LABS: TROPONIN I 0.031 ng/mL
[2019-09-07 23:20] LABS: BLOOD UREA NITROGEN 21 mg/dL (7-20); CALCIUM 9.6 mg/dL (8.4-10.2); CARBON DIOXIDE 28 mmol/L (22-30); CHLORIDE 99 mmol/L (98-107); GLUCOSE 221 mg/dL (75-110); POTASSIUM 4.1 mmol/L (3.6-5.0)
[2019-09-07 23:21] LABS: ALBUMIN 4.5 g/dL (3.5-5.0); ALKALINE PHOSPHATASE 107 U/L (38-126); ANION GAP 11 (5-19); ASPARTATE AMINO TRANSFERASE 38 U/L (17-59); BILIRUBIN,DIRECT 0.4 mg/dL (0.0-0.4); BILIRUBIN,TOTAL 0.7 mg/dL (0.2-1.3); TOTAL PROTEIN 8.7 g/dL (6.3-8.2)
[2019-09-07 23:45] LABS: A TYPE INFLUENZA AG NEGATIVE (NEGATIVE); B INFLUENZA AG NEGATIVE (NEGATIVE)
[2019-09-07] MEDS ORDERED: MIDODRINE HCL 5 MG TABLET PO ONE (23:56)
[2019-09-07] MEDS ORDERED: INSULIN GLARGINE,HUM.REC.ANLOG 1,000 UNIT/10 ML VIAL SUBCUT ONE (23:56)
[2019-09-07] MEDS ORDERED: GLIPIZIDE 10 MG TABLET PO ONE (23:58)
[2019-09-08] MEDS ORDERED: FUROSEMIDE INJ/PF 40 MG/4 ML SDV IV ONE (00:55)
[2019-09-08] MEDS ORDERED: FUROSEMIDE INJ/PF 20 MG/2 ML SDV IV ONE (00:56)
[2019-09-08] MEDS ORDERED: MAGNESIUM HYDROXIDE SUSP 30 ML UDCUP PO PRN (02:05)
[2019-09-08] MEDS ORDERED: PROMETHAZINE HCL INJ 25 MG/1 ML VIAL IV PRN (02:05)
[2019-09-08] MEDS ORDERED: MAG HYDROX/AL HYDROX/SIMETH SUSP 30 ML UDCUP PO PRN (02:05)
[2019-09-08] MEDS ORDERED: LORAZEPAM INJ 2 MG/1 ML VIAL IV PRN (02:21)
[2019-09-08] MEDS ORDERED: ACETAMINOPHEN 325 MG TABLET PO PRN (02:21)
[2019-09-08] MEDS ORDERED: DEXTROSE 50%-WATER 25 GM/50 ML DISP.SYRIN IV PRN ×2 (02:22)
[2019-09-08] MEDS ORDERED: DEXTROSE 40% GEL 15 GM TUBE PO PRN ×2 (02:22)
[2019-09-08] MEDS ORDERED: GLUCAGON,HUMAN RECOMB 1 MG INJ IM PRN (02:22)
[2019-09-08] MEDS ORDERED: MELATONIN 5 MG TABLET PO PRN (02:26)
[2019-09-08] MEDS ORDERED: NITROGLYCERIN 2% OINTMENT 1 GM PACKET TP SCH (02:30)
[2019-09-08] MEDS: MORPHINE SULFATE 10 MG/ML INJ IV PRN ×2 (02:55→22:44)
[2019-09-08] MEDS: NITROGLYCERIN 2% OINTMENT 1 GM PACKET TP SCH ×4 (02:57→18:07)
[2019-09-08 03:46] LABS: CREATINE KINASE MB 0.81 ng/mL (<4.55); TROPONIN I 0.039 ng/mL
[2019-09-08] MEDS ORDERED: LEVOTHYROXINE SODIUM 0.15 MG TABLET ONE (06:26)
--- NOTE | 2019-09-08 06:33 | PDOC H&P ---
History of Present Illness Admission Date/PCP: 09/08/2019 01:39 Dr. Hawkins Patient complains of: Dyspnea History of Present Illness: ASRAH YOUNG is a 64 year old male who presented to the emergency room with a 3-day history of dyspnea. He admits gradually worsening constant dyspnea for the last 3 days becoming suddenly severe on the late evening of 09/07/2019. His dyspnea worsens with any exertion and has been accompanied by a moderate nonproductive cough, a sensation of chest congestion and intermittent wheezing. His sudden exacerbation of symptoms was associated with severe air hunger and orthopnea. He denies other associated or accompanying signs and symptoms. He denies prior similar episodes. He denies identification of any additional aggravating or ameliorating factors for his dyspnea. In the emergency room he was found to have an elevated BNP with a chest x-ray showing evidence of acute congestive heart failure. He was treated with diuretics and supplemental oxygen and showed gradual improvement. He was subsequently admitted to the hospital for further evaluation treatment. Past Medical History Cardiac Medical History: Reports: Coronary Artery Disease, Myocardial Infarction, Hyperlipidema, Hypertension, Peripheral Vascular Disease - Cerebrovascular disease, Other - Hypotension Denies: Atrial Fibrillation, Congestive Heart Failure, DVT, Pulmonary Embolism Pulmonary Medical History: Reports: Pneumonia Denies: Asthma, Bronchitis, Chronic Obstructive Pulmonary Disease (COPD), Tuberculosis EENT Medical History: Denies: Cataracts, Ears - Hearing aids Neurological Medical History: Denies: Hemorrhagic CVA, Ischemic CVA, Seizures Endocrine Medical History: Reports: Diabetes Mellitus Type 2, Hypothyroidism Denies: Diabetes Mellitus Type 1, Hyperthyroidism Renal/ Medical History: Denies: Chronic Kidney Disease, Nephrolithiasis Malignancy Medical History: Reports: None GI Medical History: Denies: Cirrhosis, Gastroesophageal Reflux Disease, Hepatitis, Hiatal Hernia Musculoskeltal Medical History: Denies: Arthritis, Gout Skin Medical History: Denies: Eczema, Psoriasis Psychiatric Medical History: Reports: Depression - occasional Denies: Alcohol Dependency, Bipolar Disorder, Substance Abuse, Tobacco Dependency Traumatic Medical History: Reports: None Hematology: Denies: Anemia, Bleeding Tendencies Infectious Medical History: Reports: Methicillin-Resistant Staph Aureus Past Surgical History Past Surgical History: Reports: Cardiac Catheterization, Coronary Artery Bypass Graft, Orthopedic Surgery - carpel tunnel release Social History Information Source: Patient Lives with: Spouse/Significant other Smoking Status: Never Smoker Electronic Cigarette use?: No Frequency of Alcohol Use: Rare Hx Recreational Drug Use: No Drugs: None Hx Prescription Drug Abuse: No - Advance Directive Resuscitation Status: Full Code Surrogate healthcare decision maker:: Isabel Young Family History Family History: Arthritis, CAD, Other - Valvular heart disease. denies: DM, Hypertension, Malignancy Parental Family History Reviewed: Yes Children Family History Reviewed: No Sibling(s) Family History Reviewed.: Yes Medication/Allergy Home Medications: Amlodipine Besylate [Norvasc 10 mg Tablet] 10 mg PO QAM 10/09/18 Clonidine HCl [Catapres 0.1 mg Tablet] 0.1 mg PO BID 10/09/18 Gabapentin [Neurontin] 1,200 mg PO QHS 10/09/18 Gabapentin [Neurontin] 600 mg PO BID@0800,1300 10/09/18 Glipizide [Glucotrol] 20 mg PO BID 10/09/18 Levothyroxine Sodium [Synthroid 0.15 mg Tablet] 0.15 mg PO Q6AM 10/09/18 Lisinopril [Zestril] 40 mg PO QAM 10/09/18 Melatonin [Melatonin 3 mg Tablet] 9 mg PO HSP PRN 10/09/18 Metformin HCl [Glucophage 500 mg Tablet] 1,000 mg PO BIDBS 10/09/18 Atorvastatin Calcium [Lipitor 80 mg Tablet] 40 mg PO QHS #30 tablet 10/13/18 Clopidogrel Bisulfate [Plavix 75 mg Tablet] 75 mg PO DAILY #30 tablet 10/13/18 Clonidine HCl [Clonidine HCl ER] 0.1 mg PO Q12 02/06/19 Clopidogrel Bisulfate [Plavix 75 mg Tablet] 75 mg PO DAILY 02/06/19 Cranberry [Cranberry 1000 mg Capsule] 1,000 mg PO DAILY 02/06/19 Duloxetine HCl [Cymbalta 20 Mg Capsule.Dr] 40 mg PO BID 02/06/19 Gabapentin 600 mg PO QID 02/06/19 Insulin Glargine,Hum.rec.anlog [Lantus Insulin 100 Unit/1 ml 10 ml] 50 units SQ QHS 02/06/19 Ketorolac Tromethamine 0.45% [Acuvail 0.45% Oph Soln 0.4 ml/Dropperette] 1 drop OD BID 02/06/19 Moxifloxacin HCl [Vigamox 0.5% Oph Soln 3 ml] 1 drop OP ASDIR PRN 02/06/19 Prednisolone Acetate [Pred Forte] 1 ml OP ASDIR PRN 02/06/19 Allergies/Adverse Reactions: Penicillins Allergy (Intermediate, Verified 03/09/19 10:50) Rash ampicillin Allergy (Verified 03/09/19 10:50) Review of Systems Constitutional: ABSENT: chills, fever(s) Eyes: ABSENT: visual disturbances, other - Eye pain Ears: ABSENT: hearing changes, other - Ear pain Nose, Mouth, and Throat: ABSENT: headache(s), mouth pain, sore throat Cardiovascular: PRESENT: as per HPI, chest pain - Chronic pain in the area of his coronary artery bypass graft incision, dyspnea on exertion, orthropnea. ABSENT: edema, palpitations Respiratory: PRESENT: as per HPI, cough, dyspnea. ABSENT: hemoptysis, sputum Gastrointestinal: ABSENT: abdominal pain, constipation, diarrhea, nausea, vomiting Genitourinary: ABSENT: dysuria, hematuria Musculoskeletal: ABSENT: back pain, joint swelling Integumentary: ABSENT: diaphoresis, pruritus, rash Neurological: ABSENT: confusion, convulsions, focal weakness, memory loss, syncope Psychiatric: ABSENT: anxiety, depression Endocrine: ABSENT: cold intolerance, heat intolerance, polydipsia, polyphagia, polyuria Hematologic/Lymphatic: ABSENT: easy bleeding, easy bruising Allergic/Immunologic: ABSENT: seasonal rhinorrhea Physical Exam Vital Signs: Temp Pulse Resp BP Pulse Ox 98.1 F 100 24 H 158/99 H 96 09/08/19 00:01 09/07/19 21:08 09/08/19 00:01 09/08/19 00:01 09/08/19 00:01 Intake & Output 09/06/19 09/07/19 09/08/19 23:59 23:59 23:59 Weight 126.4 kg General appearance: PRESENT: no acute distress, cooperative, other - On supplemental oxygen, exam Head exam: PRESENT: atraumatic, normocephalic Eye exam: PRESENT: conjunctiva pink. ABSENT: conjunctival injection, scleral icterus Ear exam: PRESENT: normal external ear exam. ABSENT: bleeding, drainage Mouth exam: PRESENT: dry mucosa, neck supple Neck exam: PRESENT: JVD - JVD bilateral at 30 degrees. ABSENT: thyromegaly, tracheal deviation Respiratory exam: PRESENT: decreased breath sounds - Decreased breath sounds at both bases, rales - Fine rales in the lower one third of both lung joseph, symmetrical, tachypnea Cardiovascular exam: PRESENT: gallop - S4 gallop, RRR. ABSENT: clicks, rubs Vascular exam: PRESENT: normal capillary refill. ABSENT: pallor GI/Abdominal exam: PRESENT: normal bowel sounds, soft Rectal exam: PRESENT: deferred Extremities exam: PRESENT: pedal edema - Trace bilateral pedal edema, other - Trace bilateral pretibial edema. ABSENT: joint swelling Musculoskeletal exam: ABSENT: deformity, dislocation Neurological exam: PRESENT: alert, oriented to person, oriented to place, oriented to time, oriented to situation, CN II-XII grossly intact. ABSENT: motor sensory deficit Psychiatric exam: PRESENT: appropriate affect, normal mood Skin exam: PRESENT: dry, intact, warm. ABSENT: jaundice, rash, urticaria Results Laboratory Results: 09/07/19 22:30 09/07/19 22:30 09/07/19 09/07/19 22:30 22:30 WBC 10.2 RBC 4.72 Hgb 12.1 L Hct 37.0 L MCV 78 L MCH 25.7 L MCHC 32.8 RDW 16.3 H Plt Count 280 Seg Neutrophils % 69.5 Sodium 137.6 Potassium 4.1 Chloride 99 Carbon Dioxide 28 Anion Gap 11 BUN 21 H Creatinine 0.99 Est GFR ( Amer) > 60 Glucose 221 H Calcium 9.6 Total Bilirubin 0.7 AST 38 Alkaline Phosphatase 107 Total Protein 8.7 H Albumin 4.5 09/07/19 22:30 Troponin I 0.031 NT-Pro-B Natriuret Pep 3880 H Impressions: Chest X-Ray 09/07/19 21:22 IMPRESSION: Cardiomegaly with mild changes of pulmonary edema and small bilateral pleural effusions. Assessment and Plan - Diagnosis (1) Acute congestive heart failure Qualifiers: Heart failure type: unspecified Qualified Code(s): I50.9 - Heart failure, unspecified Is this a current diagnosis for this admission?: Yes (2) Chronic chest wall pain Is this a current diagnosis for this admission?: Yes (3) Hypertension Qualifiers: Hypertension type: essential hypertension Qualified Code(s): I10 - Essential (primary) hypertension Is this a current diagnosis for this admission?: Yes (4) Diabetes mellitus type 2 in obese Is this a current diagnosis for this admission?: Yes (5) Coronary artery disease Qualifiers: Coronary Disease-Associated Artery/Lesion type: [place] artery [place] vs. transplanted heart: [place] heart Associated angina: without angina Qualified Code(s): I25.10 - Atherosclerotic heart disease of [place] coronary artery witho ut angina pectoris Is this a current diagnosis for this admission?: Yes (6) Hyperlipidemia Qualifiers: Hyperlipidemia type: unspecified Qualified Code(s): E78.5 - Hyperlipidemia, unspecified Is this a current diagnosis for this admission?: Yes (7) Hypothyroidism (acquired) Is this a current diagnosis for this admission?: Yes (8) Morbid obesity Is this a current diagnosis for this admission?: Yes - Plan Summary Summary: Patient will be admitted to the medical floor where he received routine supportive and symptomatic cares. He will be admitted under the congestive heart failure protocol. Serial cardiac enzymes will be obtained. [place] rdiogram will be obtained. Patient will be started on appropriate medical regimen for management of his congestive heart failure, this will include alterations to his current regiment for hypertension and coronary artery disease. He will use morphine sulfate 2 mg IV every hour as needed severe dys pnea. He will use Ativan 1 mg IV every 4 hours as needed anxiety. He will be placed on nitroglycerin 2% topical gel 1 g every 6 hours. He will receive supplemental oxygen as required for maintenance of an adequate oxygen saturation. He will be continued on his usual medications for his chronic m edical illnesses as appropriate once his medical reconciliation list has been verified. A cardiac and diabetic restricted diet will be provided. Before meals and at bedtime Accu-Cheks will be obtained with hyperglycemia treated with sliding scale insulin and hypoglycemia treated per hypoglycemic protocol. Routine laboratory evaluations per the congestive heart failure protocol will be obtained. - Time Time Spent with patient: 15-24 minutes Medications reviewed and adjusted accordingly: Yes Anticipated discharge: Home with Homehealth - Inpatient Certification Based on my medical assessment, after consideration of the patient's comorbidities, presenting symptoms, or acuity I expect that the services needed warrant INPATIENT care.: Yes I certify that my determination is in accordance with my understanding of Medicare's requirements for reasonable and necessary INPATIENT services [42 CFR 412.3e].: Yes Medical Necessity: Significant Comorbidiites Make Outpatient Treatment Too Risky, Need Close Monitoring Due to Risk of Patient Decompensation, Risk of Complication if Not Cared For in Hospital
[2019-09-08] MEDS: LEVOTHYROXINE SODIUM 0.15 MG TABLET PO SCH (06:35)
[2019-09-08] MEDS: HEPARIN SOD (PORCINE) 5,000 UNIT/ML 1 ML VIAL SUBCUT SCH ×3 (06:36→22:44)
[2019-09-08] MEDS: METFORMIN HCL 500 MG TABLET PO SCH ×2 (08:20→18:10)
[2019-09-08] MEDS: INSULIN REG, HUMAN 100 UNIT/ML 3 ML VIAL (PYX) SUBCUT SCH ×4 (08:20→22:49)
[2019-09-08] MEDS: GLIPIZIDE 10 MG TABLET PO SCH ×2 (08:20→18:08)
[2019-09-08 08:41] LABS: CREATINE KINASE MB 0.79 ng/mL (<4.55); TROPONIN I 0.029 ng/mL
[2019-09-08] MEDS ORDERED: TORSEMIDE 20 MG TABLET PO SCH (10:00)
[2019-09-08] MEDS: DOCUSATE SODIUM 100 MG CAPSULE PO SCH (11:14)
[2019-09-08] MEDS: FAMOTIDINE 20 MG TABLET PO SCH ×2 (11:15→22:45)
[2019-09-08] MEDS: TORSEMIDE 20 MG TABLET PO SCH (11:15)
[2019-09-08] MEDS: SPIRONOLACTONE 25 MG TABLET PO SCH (11:15)
[2019-09-08] MEDS: CLOPIDOGREL BISULFATE 75 MG TABLET PO SCH (11:15)
[2019-09-08] MEDS: CARVEDILOL 12.5 MG TABLET PO SCH ×2 (11:16→22:45)
[2019-09-08] MEDS: LISINOPRIL 10 MG TABLET PO SCH ×2 (11:16→22:49)
[2019-09-08 14:48] LABS: CREATINE KINASE MB 1.07 ng/mL (<4.55); TROPONIN I 0.019 ng/mL
[2019-09-08] MEDS ORDERED: INFLUENZA QUAD (6MOS+) 2019-20 VAC 0.5 ML SYR IM ONE (17:01)
[2019-09-08] MEDS: LACTOBACILLUS ACIDOPHILUS 250 MG TAB PO SCH (18:08)
[2019-09-08] MEDS: DULOXETINE HCL 30 MG CAPSULE.DR PO SCH (18:09)
[2019-09-08] MEDS: PREGABALIN 50 MG CAPSULE PO SCH (18:10)
--- NOTE | 2019-09-08 20:39 | PDOC PROGRESS REPORT ---
Subjective Progress Note for:: 09/08/19 Subjective:: The patient was just admitted earlier this morning. He states that he is feeling better. His breathing is more comfortable. Reason For Visit: ACUTE CONGESTIVE HEART FAILURE Physical Exam Vital Signs: Temp Pulse Resp BP Pulse Ox 98.4 F 101 H 22 H 124/84 96 09/08/19 16:00 09/08/19 16:00 09/08/19 16:01 09/08/19 16:01 09/08/19 16:01 Intake & Output 09/07/19 09/08/19 09/09/19 06:59 06:59 06:59 Intake Total 300 860 Output Total 1900 1520 Balance -1600 -660 Weight 126.4 kg 125.645 kg General appearance: PRESENT: no acute distress, well-developed Respiratory exam: PRESENT: rales - Faint bibasilar rales, symmetrical, unlabored. ABSENT: rhonchi, tachypnea, wheezes Cardiovascular exam: PRESENT: RRR, +S1, +S2 GI/Abdominal exam: PRESENT: normal bowel sounds, soft. ABSENT: distended, tenderness Results Laboratory Results: 09/07/19 22:30 09/07/19 22:30 09/07/19 09/07/19 22:30 22:30 WBC 10.2 RBC 4.72 Hgb 12.1 L Hct 37.0 L MCV 78 L MCH 25.7 L MCHC 32.8 RDW 16.3 H Plt Count 280 Seg Neutrophils % 69.5 Sodium 137.6 Potassium 4.1 Chloride 99 Carbon Dioxide 28 Anion Gap 11 BUN 21 H Creatinine 0.99 Est GFR ( Amer) > 60 Glucose 221 H Calcium 9.6 Total Bilirubin 0.7 AST 38 Alkaline Phosphatase 107 Total Protein 8.7 H Albumin 4.5 09/07/19 09/08/19 09/08/19 22:30 00:59 02:42 Creatine Kinase 44 L CK-MB (CK-2) Troponin I 0.031 0.035 NT-Pro-B Natriuret Pep 3880 H 09/08/19 09/08/19 09/08/19 02:42 08:02 08:02 Creatine Kinase 58 CK-MB (CK-2) 0.81 0.79 Troponin I 0.039 0.029 NT-Pro-B Natriuret Pep 09/08/19 09/08/19 14:08 14:08 Creatine Kinase 43 L CK-MB (CK-2) 1.07 Troponin I 0.019 NT-Pro-B Natriuret Pep Impressions: Chest X-Ray 09/07/19 21:22 IMPRESSION: Cardiomegaly with mild changes of pulmonary edema and small bilateral pleural effusions. Assessment and Plan - Diagnosis (1) Acute congestive heart failure Qualifiers: Heart failure type: unspecified Qualified Code(s): I50.9 - Heart failure, unspecified Is this a current diagnosis for this admission?: Yes (2) Chronic chest wall pain Is this a current diagnosis for this admission?: Yes (3) Hypertension Qualifiers: Hypertension type: essential hypertension Qualified Code(s): I10 - Essential (primary) hypertension Is this a current diagnosis for this admission?: Yes (4) Coronary artery disease Qualifiers: Coronary Disease-Associated Artery/Lesion type: nome artery [place] vs. 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 He will be admitted under the congestive hear t failure protocol. Serial cardiac enzymes will be obtained. Echocardiogram will be obtained. Patient will be started on appropriate medical regimen for management of his congestive heart failure, this will include alterations to his current regiment for hypertension and coronary artery disease. He will use morphine sulfate 2 mg IV every hour as needed severe dyspnea. He will use Ativan 1 mg IV every 4 hours as needed anxiety. He will be placed on nitroglycerin 2% topical gel 1 g every 6 hours. He will receive supplemental oxygen as required for maintenance of an adequate oxygen saturation. He will be continued on his usual medications for his chronic medical illnesses as appropriate once his medical reconciliation list has been verified. A cardiac and diabetic restricted diet will be provided. Before meals and at bedtime Accu-Cheks will be obtained with hyperglycemia treated with sliding scale insulin and hypoglycemia treated per hypoglycemic protocol. Routine laboratory evaluations per the congestive heart failure protocol will be obtained. 09/08/2019 The patient was just admitted earlier this morning. He is comfortable. The nitroglycerin paste seems to be helping. I explained to the patient that if he continues to do well he may go home tomorrow. We will monitor him on telemetry, monitor his Accu-Cheks, vital signs and his intake and output. - Time Time Spent with patient: Less than 15 minutes Medications reviewed and adjusted accordingly: Yes
[2019-09-08] MEDS ORDERED: ATORVASTATIN CALCIUM 80 MG TABLET PO SCH (22:00)
[2019-09-08] MEDS ORDERED: INSULIN GLARGINE,HUM.REC.ANLOG 1,000 UNIT/10 ML VIAL SUBCUT SCH (22:00)
[2019-09-08] MEDS ORDERED: MELATONIN 5 MG TABLET PO SCH (22:00)
[2019-09-09] MEDS: NITROGLYCERIN 2% OINTMENT 1 GM PACKET TP SCH ×2 (00:50→06:07)
[2019-09-09] MEDS: HEPARIN SOD (PORCINE) 5,000 UNIT/ML 1 ML VIAL SUBCUT SCH (06:06)
[2019-09-09] MEDS: LEVOTHYROXINE SODIUM 0.15 MG TABLET PO SCH (06:06)
[2019-09-09 06:11] LABS: ABSOLUTE EOSINOPHILS # (AUTO) 0.2 10^3/uL (0.0-0.6); ABSOLUTE LYMPHOCYTES (AUTO) 1.6 10^3/uL (0.5-4.7); ABSOLUTE MONOCYTES (AUTO) 0.6 10^3/uL (0.1-1.4); ABSOLUTE NEUT (AUTO) 4.2 10^3/uL (1.7-8.2); BASOPHILS % (AUTO) 0.6 % (0-2); EOSINOPHILS % (AUTO) 2.3 % (0-6); HEMATOCRIT 32.3 % (37.9-51.0); HEMOGLOBIN 10.8 g/dL (13.5-17.0); LYMPHOCYTES % (AUTO) 24.7 % (13-45); MEAN CORPUSCULAR HEMOGLOBIN 25.7 pg (27.0-33.4); MEAN CORPUSCULAR HGB CONC 33.4 g/dL (32.0-36.0); MEAN CORPUSCULAR VOLUME 77 fl (80-97); MONOCYTES % (AUTO) 8.7 % (3-13); PLATELET COUNT 228 10^3/uL (150-450); SEGMENTED NEUTROPHILS % (AUTO) 63.7 % (42-78); TOTAL CELLS COUNTED % (AUTO) 100 %; WHITE BLOOD COUNT 6.6 10^3/uL (4.0-10.5)
[2019-09-09 06:30] LABS: ANION GAP 6 (5-19); BLOOD UREA NITROGEN 18 mg/dL (7-20); CALCIUM 8.9 mg/dL (8.4-10.2); CARBON DIOXIDE 28 mmol/L (22-30); CHLORIDE 104 mmol/L (98-107); CHOLESTEROL 135.17 mg/dL (0-200); POTASSIUM 3.7 mmol/L (3.6-5.0); TRIGLYCERIDES 112 mg/dL (<150)
[2019-09-09 06:38] LABS: GLUCOSE 63 mg/dL (75-110)
[2019-09-09 06:40] LABS: DIRECT LDL 77 mg/dL (<100)
[2019-09-09] MEDS: MORPHINE SULFATE 10 MG/ML INJ IV PRN (06:52)
[2019-09-09 08:55] VITALS: BP 130/80
--- NOTE | 2019-09-09 09:36 | PDOC DISCHARGE SUMMARY ---
Impression - Admit/DC Date/PCP Admission Date/Primary Care Provider: 09/08/19 01:52 Discharge Date: 09/09/19 - Discharge Diagnosis (1) Acute congestive heart failure Is this a current diagnosis for this admission?: Yes (2) Chronic chest wall pain Is this a current diagnosis for this admission?: Yes (3) Hypertension Is this a current diagnosis for this admission?: Yes (4) Coronary artery disease Is this a current diagnosis for this admission?: Yes (5) Hyperglycemia due to type 2 diabetes mellitus Is this a current diagnosis for this admission?: Yes (6) Hyperlipidemia Is this a current diagnosis for this admission?: Yes (7) Hypothyroidism (acquired) Is this a current diagnosis for this admission?: Yes (8) Obesity (BMI 30-39.9) Is this a current diagnosis for this admission?: Yes - Assessment Summary: Patient will be admitted to the medical floor where he received routine supportive and symptomatic cares. He will be admitted under the congestive heart failure protocol. Serial cardiac enzymes will be obtained. Echocardiogram will be obtained. Patient will be started on appropriate medical regimen for management of his congestive heart failure, this will include alterations to his current regiment for hypertension and coronary artery disease. He will use morphine sulfate 2 mg IV every hour as needed severe dyspnea. He will use Ativan 1 mg IV every 4 hours as needed anxiety. He will be placed on nitroglycerin 2% topical gel 1 g every 6 hours. He will receive supplemental oxygen as required for maintenance of an adequate oxygen saturation. He will be continued on his usual medications for his chronic medical illnesses as appropriate once his medical reconciliation list has been verified. A cardiac and diabetic restricted diet will be provided. Before meals and at bedtime Accu-Cheks will be obtained with hyperglycemia treated with sliding scale insulin and hypoglycemia treated per hypoglycemic protocol. Routine laboratory evaluations per the congestive heart failure protocol will be obtained. 09/08/2019 The patient was just admitted earlier this morning. He is comfortable. The nitroglycerin paste seems to be helping. I explained to the patient that if he continues to do well he may go home tomorrow. We will monitor him on telemetry, monitor his Accu-Cheks, vital signs and his intake and output. - Additional Information Resuscitation Status: Full Code Discharge Diet: Cardiac, Diabetic Discharge Activity: Activity As Tolerated, Walk Frequently, Weigh Daily Prescriptions: Spironolactone [Aldactone 25 mg Tablet] 25 mg PO DAILY 14 Days #14 tablet Carvedilol [Coreg 6.25 mg Tablet] 6.25 mg PO Q12 #30 tablet Furosemide [Lasix 20 mg Tablet] 20 mg PO QAM 14 Days #30 tablet Lisinopril [Prinivil 5 mg Tablet] 5 mg PO DAILY 14 Days #14 tablet Home Medications: Glipizide [Glucotrol] 10 mg PO BID 10/09/18 Metformin HCl [Glucophage 500 mg Tablet] 1,000 mg PO BIDBS 10/09/18 Atorvastatin Calcium [Lipitor 80 mg Tablet] 40 mg PO QHS #30 tablet 10/13/18 Clopidogrel Bisulfate [Plavix 75 mg Tablet] 75 mg PO DAILY 02/06/19 Doxycycline Hyclate 100 mg PO BID 09/08/19 Duloxetine HCl [Cymbalta] 60 mg PO BID 09/08/19 Ferrous Sulfate 325 mg PO DAILY 09/08/19 Lactobacillus Acidophilus [Acidophilus] 1 each PO BID 09/08/19 Melatonin 20 mg PO QHS 09/08/19 Midodrine HCl 5 mg PO TID 09/08/19 Pregabalin [Lyrica 50 mg Capsule] 150 mg PO BID 09/08/19 Pregabalin [Lyrica 50 mg Capsule] 150 mg PO HSP PRN 09/08/19 Atorvastatin Calcium [Lipitor 80 mg Tablet] 80 mg PO QHS tablet 09/09/19 Carvedilol [Coreg 12.5 mg Tablet] 12.5 mg PO Q12 tablet 09/09/19 Carvedilol [Coreg 6.25 mg Tablet] 6.25 mg PO Q12 #30 tablet 09/09/19 Clopidogrel Bisulfate [Plavix 75 mg Tablet] 75 mg PO DAILY tablet 09/09/19 Furosemide [Lasix 20 mg Tablet] 20 mg PO QAM 14 Days #30 tablet 09/09/19 Glipizide [Glucotrol 10 mg Tablet] 10 mg PO BIDBS tablet 09/09/19 Insulin Glargine,Hum.rec.anlog [Lantus Insulin 100 Unit/1 ml 10 ml] 30 units SQ QHS #0 09/09/19 Lisinopril [Prinivil 5 mg Tablet] 5 mg PO DAILY 14 Days #14 tablet 09/09/19 Metformin HCl [Glucophage 500 mg Tablet] 1,000 mg PO BIDACBS tablet 09/09/19 Spironolactone [Aldactone 25 mg Tablet] 25 mg PO DAILY 14 Days #14 tablet 09/09/19 History of Present Illiness History of Present Illness: SARAH MARIN is a 64 year old male who presented to the emergency room with a 3-day history of dyspnea. He admits gradually worsening constant dyspnea for the last 3 days becoming suddenly severe on the late evening of 09/07/2019. His dyspnea worsens with any exertion and has been accompanied by a moderate nonproductive cough, a sensation of chest congestion and intermittent wheezing. His sudden exacerbation of symptoms was associated with severe air hunger and orthopnea. He denies other associated or accompanying signs and symptoms. He denies prior similar episodes. He denies identification of any additional aggravating or ameliorating factors for his dyspnea. In the emergency room he was found to have an elevated BNP with a chest x-ray showing evidence of acute congestive heart failure. He was treated with diuretics and supplemental oxygen and showed gradual improvement. He was subsequently admitted to the hospital for further evaluation treatment. Hospital Course Hospital Course: The patient had a fairly unremarkable course. He in fact improved dramatically overnight. His lungs are clear. His blood pressure is stable. His pulse is still hovering around 100. He is on several new medications. He gets his medications on the basis and so I have given him paper prescriptions. He will try and follow-up with his primary care provider but more importantly with his marine propulsion technician this week. Physical Exam Vital Signs: Temp Pulse Resp BP Pulse Ox 97.3 F 100 19 130/80 H 95 09/09/19 08:54 09/09/19 08:54 09/09/19 08:54 09/09/19 08:54 09/09/19 08:54 Intake & Output 09/08/19 09/09/19 09/10/19 06:59 06:59 06:59 Intake Total 300 1060 Output Total 1900 2295 Balance -1600 -1235 Weight 126.4 kg 124.8 kg General appearance: PRESENT: no acute distress, cooperative, well-developed Head exam: PRESENT: atraumatic, normocephalic Respiratory exam: PRESENT: clear to auscultation garth, symmetrical, unlabored. ABSENT: rales, rhonchi, tachypnea, wheezes Cardiovascular exam: PRESENT: RRR - Borderline tachycardia, +S1, +S2 GI/Abdominal exam: PRESENT: normal bowel sounds, soft. ABSENT: distended, guarding, tenderness Rectal exam: PRESENT: deferred Gentrourinary exam: ABSENT: indwelling catheter Neurological exam: PRESENT: alert, awake, oriented to person, oriented to place, oriented to time, oriented to situation, CN II-XII grossly intact. ABSENT: motor sensory deficit Psychiatric exam: PRESENT: flat affect. ABSENT: agitated, anxious Results Laboratory Results: WBC 6.6 10^3/uL (4.0-10.5) 09/09/19 05:41 RBC 4.20 10^6/uL (4.35-5.55) L 09/09/19 05:41 Hgb 10.8 g/dL (13.5-17.0) L 09/09/19 05:41 Hct 32.3 % (37.9-51.0) L 09/09/19 05:41 MCV 77 fl (80-97) L 09/09/19 05:41 MCH 25.7 pg (27.0-33.4) L 09/09/19 05:41 MCHC 33.4 g/dL (32.0-36.0) 09/09/19 05:41 RDW 16.0 % (11.5-14.0) H 09/09/19 05:41 Plt Count 228 10^3/uL (150-450) 09/09/19 05:41 Lymph % (Auto) 24.7 % (13-45) 09/09/19 05:41 [place] % (Auto) 8.7 % (3-13) 09/09/19 05:41 Eos % (Auto) 2.3 % (0-6) 09/09/19 05:41 Baso % (Auto) 0.6 % (0-2) 09/09/19 05:41 Absolute Neuts (auto) 4.2 10^3/uL (1.7-8.2) 09/09/19 05:41 Absolute Lymphs (auto) 1.6 10^3/uL (0.5-4.7) 09/09/19 05:41 Absolute Monos (auto) 0.6 10^3/uL (0.1-1.4) 09/09/19 05:41 Absolute Eos (auto) 0.2 10^3/uL (0.0-0.6) 09/09/19 05:41 Absolute Basos (auto) 0.0 10^3/uL (0.0-0.2) 09/09/19 05:41 Seg Neutrophils % 63.7 % (42-78) 09/09/19 05:41 Sodium 137.7 mmol/L (137-145) 09/09/19 05:41 Potassium 3.7 mmol/L (3.6-5.0) 09/09/19 05:41 Chloride 104 mmol/L (98-107) 09/09/19 05:41 Carbon Dioxide 28 mmol/L (22-30) 09/09/19 05:41 Anion Gap 6 (5-19) 09/09/19 05:41 BUN 18 mg/dL (7-20) 09/09/19 05:41 Creatinine 1.02 mg/dL (0.52-1.25) 09/09/19 05:41 Est GFR ( Amer) > 60 (>60) 09/09/19 05:41 Est GFR (MDRD) Non-Af > 60 (>60) 09/09/19 05:41 Glucose 63 mg/dL (75-110) L 09/09/19 05:41 POC Glucose 135 mg/dL (70-110) H 09/09/19 08:16 Hemoglobin A1c % 6.7 % (4.7-6.0) H 09/09/19 05:41 Calcium 8.9 mg/dL (8.4-10.2) 09/09/19 05:41 Magnesium 2.1 mg/dL (1.6-2.3) 09/09/19 05:41 Total Bilirubin 0.7 mg/dL (0.2-1.3) 09/07/19 22:30 Direct Bilirubin 0.4 mg/dL (0.0-0.4) 09/07/19 22:30 Neonat Total Bilirubin Not Reportable 09/07/19 22:30 Neonat Direct Bilirubin Not Reportable 09/07/19 22:30 Neonat Indirect Bili Not Reportable 09/07/19 22:30 AST 38 U/L (17-59) 09/07/19 22:30 ALT 13 U/L (<50) 02/21/20 22:30 Alkaline Phosphatase 107 U/L (38-126) 09/07/19 22:30 Creatine Kinase 43 U/L (55-170) L 09/08/19 14:08 CK-MB (CK-2) 1.07 ng/mL (<4.55) 09/08/19 14:08 Troponin I 0.019 ng/mL 09/08/19 14:08 NT-Pro-B Natriuret Pep 3880 pg/mL (<125) H 09/07/19 22:30 Total Protein 8.7 g/dL (6.3-8.2) H 09/07/19 22:30 Albumin 4.5 g/dL (3.5-5.0) 09/07/19 22:30 Triglycerides 112 mg/dL (<150) 09/09/19 05:41 Cholesterol 135.17 mg/dL (0-200) 09/09/19 05:41 LDL Cholesterol Direct 77 mg/dL (<100) 09/09/19 05:41 VLDL Cholesterol 22.0 mg/dL (10-31) 09/09/19 05:41 HDL Cholesterol 41 mg/dL (>40) 09/09/19 05:41 TSH 6.52 uIU/mL (0.47-4.68) H 09/09/19 05:41 Influenza A (Rapid) NEGATIVE (NEGATIVE) 09/07/19 23:10 Influenza B (Rapid) NEGATIVE (NEGATIVE) 09/07/19 23:10 09/07/19 09/08/19 09/08/19 22:30 00:59 02:42 CK-MB (CK-2) 0.81 Troponin I 0.031 0.035 0.039 NT-Pro-B Natriuret Pep 3880 H 09/08/19 09/08/19 08:02 14:08 CK-MB (CK-2) 0.79 1.07 Troponin I 0.029 0.019 NT-Pro-B Natriuret Pep Impressions: Chest X-Ray 09/07/19 21:22 IMPRESSION: Cardiomegaly with mild changes of pulmonary edema and small bilateral pleural effusions. Plan Health Concerns: Needs further tuning of his medication regimen. I did discharge him on smaller doses of the aggressive therapy that he was receiving in the hospital. Plan of Treatment: Continue the new medication regimen and follow-up with his marine propulsion technician this week Goals: Better rate control as well as better fluid balance. He may need more education regarding low-salt diet. Time Spent: Greater than 30 Minutes Stroke Is this a Stroke Patient?: No Acute Heart Failure - Is this a Heart Failure Patient?: Yes Documentation of LVEF assessment?: Planned for after discharge LVEF < 40%?: No- if no continue to question #3 3. Anticoagulant therapy for permanect/persistent/paraoxysmal Afib or Aflutter: N/A Follow-up Appointment scheduled within 7 days?: Yes
[2019-09-09] MEDS ORDERED: INFLUENZA QUAD (6MOS+) 2019-20 VAC 0.5 ML SYR IM ONE (09:38)
[2019-09-09] MEDS: GLIPIZIDE 10 MG TABLET PO SCH (09:49)
[2019-09-09] MEDS: METFORMIN HCL 500 MG TABLET PO SCH (09:53)
[2019-09-09] MEDS: LACTOBACILLUS ACIDOPHILUS 250 MG TAB PO SCH (09:53)
[2019-09-09] MEDS: PREGABALIN 50 MG CAPSULE PO SCH (09:53)
[2019-09-09] MEDS: DULOXETINE HCL 30 MG CAPSULE.DR PO SCH (09:53)
[2019-09-09] MEDS: CLOPIDOGREL BISULFATE 75 MG TABLET PO SCH (09:53)
[2019-09-09] MEDS: LISINOPRIL 10 MG TABLET PO SCH (09:54)
[2019-09-09] MEDS: TORSEMIDE 20 MG TABLET PO SCH (09:56)
[2019-09-09] MEDS: SPIRONOLACTONE 25 MG TABLET PO SCH (09:56)
[2019-09-09] MEDS: FAMOTIDINE 20 MG TABLET PO SCH (09:56)
[2019-09-09] MEDS: INSULIN REG, HUMAN 100 UNIT/ML 3 ML VIAL (PYX) SUBCUT SCH (09:57)
[2019-09-09] MEDS ORDERED: FERROUS SULFATE 325 MG TABLET PO SCH (10:00)
[2019-09-09] MEDS: DOCUSATE SODIUM 100 MG CAPSULE PO SCH (10:24)
[2019-09-09] MEDS ORDERED: CARVEDILOL 12.5 MG TABLET PO ONE (10:30)
--- NOTE | 2019-09-09 19:22 | Progress Note ---
Provider Note Provider Note: 01/08/2020 5:00 PM The patient called 5 S. He was worried because he was having low blood pressure and has been very tired during the day. The nurse transferred the call to me. Spent 20 minutes on the phone reviewing the patient's medications. I had him check his blood pressure several times. We reviewed the possible causes of his low blood pressure and feeling very fatigued. He probably did not sleep very well in the hospital last night but also he was started on carvedilol which can cause fatigue. His blood pressure was low and this could also do it. His initial blood pressure was 97 systolic. I had him repeat it while I was on the phone and he reported a pressure of 79. He denied lightheadedness or dizziness and so this pressure may not have been accurate. He does have midodrine on his medication list. It took some time but he found his bottle of midodrine. I told him to take one midodrine tablet (5 mg) and drink plenty of fluids. I told him I would call him back in 2 hours. 01/08/2020 7:05 PM I called the patient back. He stated that he was feeling much better. His blood pressure was measured when I was on the phone and it was systolic of 109 with a pulse of 87. He has no more antihypertensive medications for tonight. I told him that I would hold his spironolactone but continue the carvedilol, furosemide and lisinopril. This should allow his pressure to drift up. I told him to make sure he brings all of the medications to his provider. I stressed that following up with his applications processor is the most important appointment and he should try and get in this week. I know the community service director's are going to call tomorrow as well to try and get the patient an appointment. He felt much better and thanked me for the call back.
[2019-09-09] MEDS ORDERED: CARVEDILOL 12.5 MG TABLET PO SCH (22:00)
== END 2019-09-09 12:00 | disposition home or self-care (01) | DRG 293 ==
LOC: ER 20:57 → EH 09-08 01:52 → 5 09-08 16:19
PROVIDERS: ADMIT Emergency Medicine; ATTEND Emergency Medicine
PROC: 5A09357 Assistance with Respiratory Ventilation, Less than 24 Consecutive Hours, Continuous Positive Airway Pressure (ICD-10-PCS; principal; 2019-09-08)
PROC: 3E02340 Introduction of Influenza Vaccine into Muscle, Percutaneous Approach (ICD-10-PCS; 2019-09-09)
DX: I11.0 Hypertensive heart disease with heart failure (principal); I50.33 Acute on chronic diastolic (congestive) heart failure; R07.89 Other chest pain; E11.65 Type 2 diabetes mellitus with hyperglycemia; E78.5 Hyperlipidemia, unspecified; E03.9 Hypothyroidism, unspecified; I25.10 Atherosclerotic heart disease of native coronary artery without angina pectoris; E11.51 Type 2 diabetes mellitus with diabetic peripheral angiopathy without gangrene; E78.00 Pure hypercholesterolemia, unspecified; Z68.36 Body mass index [BMI] 36.0-36.9, adult; I25.2 Old myocardial infarction; E66.01 Morbid (severe) obesity due to excess calories; Z79.899 Other long term (current) drug therapy; Z23 Encounter for immunization; Z79.4 Long term (current) use of insulin; Z86.14 Personal history of Methicillin resistant Staphylococcus aureus infection; Z95.1 Presence of aortocoronary bypass graft; Z88.0 Allergy status to penicillin; Z86.73 Personal history of transient ischemic attack (TIA), and cerebral infarction without residual deficits
CPT/HCPCS: 36415; 71046; 80048; 80053; 80061; 82550; 82553; 82962; 83036; 83735; 83880; 84443; 84484; 85025; 87804; 90686; 94640; 96374; 99285; J1644; J1815; J1940; J2270; J3490; J7620